=== PATIENT | male | born 1965 | race Caucasian/White ===

== ENCOUNTER → 2017-07-26 | Outpatient (CLI) | payer OTHER ==
[~2017-07-26] MED LIST: /PANT40TA OR; ALLO300T OR; AMBI12.52 PO; Acetaminophen/Hydrocodone PO; BACL10TA PO; BYST5TAB2 PO; BYSTOLIC PO; CELE1CAP4 PO; CIPR-250 PO; CYCL10TA PO; GABA-279 PO; LORT5TAB PO; METO1TAB7 PO; NEUR300C PO; NEUR400C OR; NORCOTAB PO; OXYC20TA2 OR; PERC5TAB8 PO; PROT1TAB2 PO; RESTASIS OU; SING10TA31 OR; TEST1INJ3 IM; TESTPOW5 IM; TIZA4CAP3 PO; TRAM50TA2 PO; ULTR50TA PO; ZYLO300T4 PO; [UNRECOGNIZED DRUG - OTHER] TOP
[2017-07-26 15:28] LABS: BLOOD UREA NITROGEN 10 MG/DL (7-18); CREATININE FOR GFR 0.99 MG/DL (0.70-1.30); GLOMERULAR FILTRATION RATE > 60.0 (>56)
== END ==
LOC: M LAB 14:14
PROVIDERS: ATTEND Orthopaedic Surgery Orthopaedic Surgery of the Spine
DX: M54.5 Low back pain (principal); Z01.818 Encounter for other preprocedural examination

== ENCOUNTER → 2017-08-02 | Outpatient (REF) | payer OTHER, MEDICAID ==
[2017-08-02 19:40] LABS: BASO % 0.3 % (0.0-1.0); EOS # 0.1 10^3/uL (0.0-0.50); EOS % 1.4 % (0.0-3.0); IMMATURE GRANULOCYTE % 0.4 % (0-0); LYMPH # 2.3 10^3/uL (1.5-4.5); LYMPH % 31.9 % (24.0-44.0); MEAN CORPUSCULAR HEMOGLOBIN 31.5 pg (27.0-33.0); MEAN CORPUSCULAR HGB CONC 35.1 g/dl (32.0-36.5); MEAN CORPUSCULAR VOLUME 89.6 fl (80.0-96.0); MONO # 0.6 10^3/uL (0.0-0.8); MONO % 8.3 % (0.0-5.0); NEUTROPHILS # 4.2 10^3/uL (1.8-7.7); NEUTROPHILS % 57.7 % (36.0-66.0); PLATELET COUNT, AUTOMATED 268 10^3/uL (150-450); RED CELL DISTRIBUTION WIDTH 12.4 % (11.5-14.5); WHITE BLOOD COUNT 7.3 10^3/uL (4.0-10.0)
[2017-08-02 20:07] LABS: ALBUMIN 4.3 GM/DL (3.2-5.2); ALBUMIN/GLOBULIN RATIO 1.34 (1.00-1.93); ALKALINE PHOSPHATASE 57 U/L (45-117); ALT/SGPT 46 U/L (12-78); ANION GAP 6 MEQ/L (8-16); AST/SGOT 23 U/L (15-37); BILIRUBIN,TOTAL 0.7 MG/DL (0.2-1.0); BLOOD UREA NITROGEN 12 MG/DL (7-18); CARBON DIOXIDE LEVEL 29 MEQ/L (21-32); CHLORIDE LEVEL 105 MEQ/L (98-107); CHOLESTEROL LEVEL 197 MG/DL (<200); CREATININE FOR GFR 0.88 MG/DL (0.70-1.30); GLOMERULAR FILTRATION RATE > 60.0 (>56); GLUCOSE, FASTING 84 MG/DL (70-105); POTASSIUM SERUM 4.3 MEQ/L (3.5-5.1); SODIUM LEVEL 140 MEQ/L (136-145); TOTAL PROTEIN 7.5 GM/DL (6.4-8.2); TRIGLYCERIDES LEVEL 84 MG/DL (<150); URIC ACID 6.7 MG/DL (3.5-7.2)
== END ==
LOC: M LAB REF 17:38
PROVIDERS: ATTEND Family Medicine Addiction Medicine
DX: I10 Essential (primary) hypertension (principal)

== ENCOUNTER 2017-08-25 10:08 | Day surgery (SDC) | payer OTHER ==
[~2017-08-25] VITALS: Ht 177.8 cm; Wt 108.9 kg
[2017-08-25] MEDS ORDERED: NS 1,000 ML IV ONE (12:30)
[2017-08-25] MEDS ORDERED: LIDOCAINE 2% INJ 100 MG/5 ML SDV (FOR ANES.) As Ordered ONE (13:43)
[2017-08-25] MEDS ORDERED: PROPOFOL 200 MG/20 ML VIAL As Ordered ONE (13:43)
--- NOTE | 2017-08-25 13:45 | ROOR ---
Patient Name: Everette Villanueva Procedure Date: 08/25/2017 1:28 PM Date of : 1965 Age: 52 Room: [facility] Gender: Male Note Status: Finalized Procedure: Upper GI endoscopy Indications: Heartburn, Pt with family history of celiac disease--Exclusion of celiac disease Providers: Nadeem PORTER MD Referring MD: Blu CESAR MD Requesting Provider: Medicines: Monitored Anesthesia Care Complications: No immediate complications. Procedure: Pre-Anesthesia Assessment: - The heart rate, respiratory rate, oxygen saturations, blood pressure, adequacy of pulmonary ventilation, and response to care were monitored throughout the procedure. The Endoscope was introduced through the mouth, and advanced to the third part of duodenum. The upper GI endoscopy was accomplished without difficulty. The patient tolerated the procedure well. Findings: The esophagus was normal. The stomach was normal. The examined duodenum was normal. Biopsies for histology were taken with a cold forceps in the second portion of the duodenum and in the third portion of the duodenum for evaluation of celiac disease. Impression: - Normal esophagus. - Normal stomach. - Normal examined duodenum. - Biopsies were taken with a cold forceps for evaluation of celiac disease. Recommendation: - Telephone endoscopist for pathology results in 2 weeks. Nadeem Porter MD Nadeem PORTER MD 08/25/2017 1:45:18 PM This report has been signed electronically. Number of Addenda: 0 Note Initiated On: 08/25/2017 1:28 PM Estimated Blood Loss: Estimated blood loss: none.
--- NOTE | 2017-08-25 13:55 | ROOR ---
Patient Name: Everette Villanueva Procedure Date: 08/25/2017 1:29 PM Date of : 1965 Age: 52 Room: [facility] Gender: Male Note Status: Finalized Procedure: Colonoscopy Indications: Screening for colorectal malignant neoplasm Providers: Nadeem PORTER MD Referring MD: Blu CESAR MD Requesting Provider: Medicines: Monitored Anesthesia Care Complications: No immediate complications. Procedure: Pre-Anesthesia Assessment: - The heart rate, respiratory rate, oxygen saturations, blood pressure, adequacy of pulmonary ventilation, and response to care were monitored throughout the procedure. The Colonoscope was introduced through the anus and advanced to 6 cm into the ileum. The colonoscopy was performed without difficulty. The patient tolerated the procedure well. The quality of the bowel preparation was good. Findings: The perianal and digital rectal examinations were normal. (Exam: Complete, Prep: Good or Excellent.) Small Internal Hemorrhoids. The entire examined colon appeared normal on direct and retroflexion views. The terminal ileum appeared normal. Impression: - (Exam: Complete, Prep: Good or Excellent.) - Small Internal Hemorrhoids. - The entire colon is normal on direct and retroflexion views. - The examined portion of the ileum was normal. - No specimens collected. Recommendation: - Repeat colonoscopy in 10 years for screening purposes. Nadeem Porter MD Nadeem PORTER MD 08/25/2017 1:54:49 PM This report has been signed electronically. Number of Addenda: 0 Note Initiated On: 08/25/2017 1:29 PM Estimated Blood Loss: Estimated blood loss: none.
[2017-08-25 14:36] VITALS: BP 125/75
== END 2017-08-25 14:37 | disposition home or self-care (01) ==
LOC: M OPP 10:08
PROVIDERS: ATTEND Internal Medicine Gastroenterology
DX: Z12.11 Encounter for screening for malignant neoplasm of colon (principal); K64.8 Other hemorrhoids; R12 Heartburn; G47.33 Obstructive sleep apnea (adult) (pediatric); I10 Essential (primary) hypertension; M19.90 Unspecified osteoarthritis, unspecified site; J45.909 Unspecified asthma, uncomplicated; Z79.899 Other long term (current) drug therapy; Z83.79 Family history of other diseases of the digestive system; Z91.048 Other nonmedicinal substance allergy status; Z88.8 Allergy status to other drugs, medicaments and biological substances; T88.53XD Unintended awareness under general anesthesia during procedure, subsequent encounter; Z87.442 Personal history of urinary calculi

== ENCOUNTER → 2017-08-30 | Outpatient (CLI) | payer OTHER, MEDICAID ==
--- NOTE | 2017-09-12 00:40 | ECWPNPC ---
PATIENT NAME: CORY JEFFERY : 1965 GENDER: MALE VISIT DATE: 08/30/2017 DISCHARGE DATE: 08/30/17 1525 VISIT LOCKED DATE TIME: PHYSICIAN: BAHMAN BOB RESOURCE: BAHMAN BOB REASON FOR APPOINTMENT 1. NECK AND BACK HISTORY OF PRESENT ILLNESS NEW PATIENT CONSULT: WHEN DID YOUR PAIN FIRST START? . BRIEFLY DESCRIBE HOW YOUR PAIN STARTED? . HOW DOES YOUR PAIN CHANGE WITH TIME? . DOES YOUR PAIN AWAKEN YOU FROM SLEEP? . HOW MANY HOURS OF SLEEP DO YOU NORMALLY GET? . ANY DIAGNOSTIC TESTING? . FACILITY WHERE TESTS WERE DONE? ____. PAIN TREATMENT TREATMENT YES CANCER HAVE YOU EVER HAD ANY TYPE OF CANCER?NO NO. PAIN SCREENING: PATIENT HAS A COMPLAINT OF ACUTE OR CHRONIC PAIN :YES FALL RISK SCREENING: SCREENING :NO FALLS IN THE PAST YEAR GORDON INVENTORY: QUESTIONNAIRE ASSESSEDTBD SCORE VALUE CALCULATED TBD TODAY'S VISIT: NOTES: REFERRED TO US BY PCP HUA CESAR MD FOR NECK, BACK AND ABD PAIN. HE WAS PREVIOUSLY SEEN HERE AT THE PAIN CENTER WITH LAST VISIT 06/02/15 BY Monica MCFADDEN-Brian. NOTES THAT ABD PAIN S/P HERNIA REPAIR BILATERAL WITH LEFT SIDE THE WORST. STATES THIS IS UNDER FAIR CONTROL WITH THE USE OF GABAPENTIN. NECK ARE IS UNCCOMF WITH N/T IN R.L EXTPAIN. THIS CAN AWAKEN FROM SLEEP. SI JOINT LEFT IS VERY PAINFUL AND THEN THE LOW BACK IS THE WORST. HAS JOLTING PAIN WHICH IS STRAIGHT ACROSS THE BACK. THIS HAS CAUSED FALLS - NO SPECIFIC N/T IN THE LEGS/FEET. HAS SOME KNOWN WEAKNESS IN RIGHT LEG AND THIS IS GETTING WORSE. IS NOTING IT IS VERY DIFFICULT TO GET OUT BED. NO ISSUES WITH B/B HAS USED HEAT/ICE/REST. CURRENT MEDICATIONS TAKING METOPROLOL SUCCINATE 50 MG TABLET EXTENDED RELEASE 1 TAB ORALLY DAILY TAKING GABAPENTIN 100 MG CAPSULE ORALLY 3 TIMES A DAY TAKING FLEXERIL 10 MG TABLET 1 TABLET NEEDED ORALLY THREE TIMES A DAY MEDICATION LIST REVIEWED AND RECONCILED WITH THE PATIENT PAST MEDICAL HISTORY HIGH BLOOD PRESSURE HISTORY OF KIDNEY STONES BACK PAIN NECK PAIN ALLERGIES N.K.D.A. SURGICAL HISTORY AMPUTATION LEFT PINKY FINGER 05/1970 LEFT INGUINIAL HERNIA REPAIR 03/1996 RIGHT INGUINIAL HERNIA REPAIR 04/2002 RIGHT SHOULDER ROTATOR CUFF REPAIR AND CLAVICULAR RESECTION AND REPAIR OF TEAR 04/2009 AND 04/2010 BILATERAL INGUINIAL REPAIR 2011 LEFT PLICA REMOVAL 2004 AND 2010 LEFT WRIST CARPUL TUNNEL REPAIR 2011 LUMBAR DISCECTOMY L5-S1 2013 FAMILY HISTORY FATHER: ALIVE, DIAGNOSED WITH CANCER MOTHER: ALIVE, DIAGNOSED WITH CANCER 1 SISTER(S) - HEALTHY. SOCIAL HISTORY GENERAL: TOBACCO USE ARE YOU A:NONSMOKER ALCOHOL SCREENING POINTS2 INTERPRETATIONNEGATIVE RECREATIONAL DRUG USE DRUG USE?NO UATSDIN [id number] RESTORATION LANGUAGE LANGUAGES SPOKEN:MICRONESIAN LEARNING BARRIERS / SPECIAL NEEDS BARRIERS TO LEARNING?NO HEARING IMPAIRED?NO VISION IMPAIRED?YES :CORRECTIVE LENSES COGNITIVELY IMPAIRED?NO READINESS TO LEARN?YES LEARNING PREFERENCES?NO LEARNING CAPABILITIES PRESENT?YES EMOTIONAL BARRIERS?NO SPECIAL DEVICES?NO TAG STRINGER NEEDED?NO PAIN CLINIC PFS, CLERGY, PUBLIC HEALTH REFERRALS PFS REFERRAL NEEDED?NO CLERGY REFERRAL NEEDED?NO PUBLIC HEALTH REFERRAL NEEDED?NO WAS THE PROVIDER NOTIFIED OF ANY PERTINENT INFO?NO HAS THE PATIENT BEEN EDUCATED REGARDING HIS/HER PLAN OF CARE?YES HAS THE PATIENT BEEN EDUCATED REGARDING PAIN, THE RISK FOR PAIN, THE IMPORTANCE OF EFFECTIVE PAIN MANAGEMENT, AND THE PAIN ASSESSMENT PROCESS?YES PATIENT: ____. ADVANCE DIRECTIVES HEALTH CARE PROXY?NO WOULD YOU LIKE MORE INFORMATION?YES GIVEN HCP INFORMATION 08/30/17 DO YOU HAVE A DNR?NO WOULD YOU LIKE MORE INFORMATION?NO LIVING WILL?NO WOULD YOU LIKE MORE INFORMATION?NO POWER OF RN PLASTICS?NO WOULD YOU LIKE MORE INFORMATION?NO REVIEW OF SYSTEMS REVIEWED BY: PROVIDER: . CONSTITUTIONAL: ANY CHANGE IN YOUR MEDICAL CONDITION? NO . CHILLS NO . FEVER NO . INFECTION: DO YOU HAVE NEW INFECTIONS? NO . DO YOU HAVE HISTORY OF MRSA? NO . MUSCULOSKELETAL: ANY NEW PATTERNS OF PAIN OR NUMBNESS? NO . SYTEMIC LUPUS NO . GASTROENTEROLOGY: ANY NEW CHANGE IN BOWEL CONTROL? NO . BARRETTS ESOPHAGUS NO . CIRRHOSIS NO . HEPATITIS NO . LIVER FAILURE NO . ACID REFLUX NO . UNEXPLAINED WEIGHT LOSS NO . GENITOURINARY: ANY NEW CHANGE IN BLADDER CONTROL? NO . IS THERE A CHANCE YOU COULD BE ? NO . HEMATOLOGY/LYMPH: DO YOU TAKE ANY BLOOD THINNERS? (FOR EXAMPLE- COUMADIN, PLAVIX, AGGRENOX, PLATEL, PRADAXA, OR XARELTO) NO . WHEN WAS YOUR LAST DOSE? DATE: TIME: . LOW PLATELET COUNT NO . SICKLE CELL DISEASE NO . VON WILLIEBRANDS NO . FACTOR V LEIDEN NO . THALLASEMIA NO . ANEMIA NO . EASY BRUISING NO . NEUROLOGY: HAVE YOU FALLEN IN THE PAST 6 MONTHS? YES . ANY NEW EXTREMITY NUMBNESS OR WEAKNESS? NO . HEAD INJURY NO . DEMENTIA NO . CEREBRAL PALSY NO . MULTIPLE SCLEROSIS NO . DIZZINESS NO . HEADACHE NO . STROKES NO . VERTIGO NO . CARDIOLOGY: DO YOU HAVE A PACEMAKER OR DEFIBRILLATOR? NO . ANGINA NO . HEART ATTACK NO . HEART SURGERY NO . CONGESTIVE HEART FAILURE/FLUID OVERLOAD NO . CHEST PAIN NO . HIGH BLOOD PRESSURE YES, ON MEDICATION(S) . IRREGULAR HEART BEAT NO . RESPIRATORY: HAVE YOU BEEN SICK IN THE PAST WEEK? NO . FEVER NO . FLU LIKE SYMPTOMS? NO . CPAP NO . BYPAP NO . ASTHMA NO . EMPHYSEMA NO . CHRONIC LUNG DISEASES NO . SHORTNESS OF BREATH ON EXERTION NO . DO YOU USE ANY TYPE OF TOBACCO (SMOKE, SMOKELESS, CHEW)? NO . COUGH NO . SNORING NO . INTEGUMENTARY: DO YOU HAVE ANY RASHES OR OPEN SORES? NO . ALLERGIC/IMMUNO: ARE YOU ALLERGIC TO SHELLFISH OR IV DYE? NO . ANY NEW ALLERGIES? NO . PSYCHIATRIC: DO YOU HAVE THOUGHTS OF HURTING YOURSELF OR SOMEONE ELSE? NO . ARE YOU ABUSED, NEGLECTED, OR IN AN UNSAFE ENVIRONMENT? NO . ENDOCRINOLOGY: ARE YOU DIABETIC? NO . THYROID DISORDER NO . OTHER: DO YOU NEED ANY PRESCRIPTIONS? NO . IF YES, PLEASE LIST: ____ . ANY NEW PROBLEMS WITH YOUR MEDICATIONS? NO . WHEN DID YOU LAST EAT? ____ . WHEN DID YOU LAST DRINK? ____ . WHAT DID YOU LAST DRINK? ____ . NAME OF PERSON DRIVING YOU HOME? ____ . DO YOU HAVE ANY OTHER QUESTIONS OR CONCERNS NO . PSYCHOLOGY: BECKS DEPRESSION INVENTORY . DENIES SUICIDAL/HOMICIDAL IDEATION . UROLOGY: GENERAL OCCASIONAL KIDNEY STONES - HAS ABOUT 2 X YEAR . VITAL SIGNS WT 240.0 LBS, HT 70", BMI 34.43 INDEX, BP 156/104 MM HG, REPEAT BP 150/102 MANUAL, HR 102 /MIN, RR 16 /MIN, TEMP 97.6 F, OXYGEN SAT % 98%, SAFE IN ENV? (Y/N) YES, NA INITIALS TL 1357, REVIEWED BY: ARELIS BP, RN Claudia AWARE-TL. EXAMINATION GENERAL EXAMINATION: PSYCHALERT , ORIENTED X 3 , APPROPRIATE MOOD AND AFFECT . HEENT:NORMOCEPHALIC, NO LYMADENOPATHY, NO THYROMEGLY . LUNGS:CLEAR TO AUSCULTATION BILATERALLY, NO WHEEZES, RALES OR RHONCHI . HEART:NORMAL S1S2, NO MURMURS, CLICK OR RUBS . MUSCULOSKELETAL:POINT TENDERNESS OVER C7 PROMINENCE AND OVER LUMBAR SPINOUS PROCESSES. , TRIGGER POINTS AND TIGHT BIBROUS BANDS OVER LEFT SACRUM. AND LEFT SIJ. GAIT NON ANTALGIC. CAN FLEX TO 45 DEGREES, EXTEND TO 10 DEGREES. . EXTREMITIES:NO EDEMA . NEUROLOGIC EXAM:DTR'S 1+ IN UPPER AND LOWER EXTREMITIES. NO SESORY DEFICEIT . DIAGNOSTIC TESTS REVIEWEDMRI OF LUMBAR SPINE AND CERVICAL SPINECOMPLETED 11/14/14 REVIEWED. ASSESSMENTS LUMBAR POST-LAMINECTOMY SYNDROME - M96.1 (PRIMARY) LUMBAR RADICULOPATHY - M54.16 SACROILIITIS - M46.1 TREATMENT LUMBAR POST-LAMINECTOMY SYNDROME START TRAMADOL HCL TABLET, 50 MG, 1 TABLET NEEDED, ORALLY, EVERY 6 HRS PRN PAIN MDD=3, 30 DAY(S), 90, REFILLS 0 CAUDAL/LUMBAR EPIDURALBAHMAN BOB 08/30/2017 3:12:47 PM > WILL NEED IV SEDATION NOTES: WHAT IS LUMBAR EPIDURAL INJECTION? MATERIAL WAS PRINTED,LUMBAR EPIDURAL INJECTION: RECOVERY AT HOME MATERIAL WAS PRINTED,LUMBAR EPIDURAL INJECTION: YOUR PROCEDURE MATERIAL WAS PRINTED. PREVENTIVE MEDICINE PAIN CLINIC TEACHING: MEDICATIONS PATIENT HAS TAKEN TRAMADOL PRIOR AND REFUSES ANY ADDITIONAL INFORMATION.. PROCEDURE TEACHING PRE-PROCEDURE TEACHING DONE. ADDITIONAL HAND-OUTS GIVEN. QUESTIONS ANSWERED. PATIENT VERBALIZES UNDERSTANDING.. PROCEDURE CODES FA211 ESTABILISHED PATIENT [facility] FACILITY CHARGE DISPOSITION & COMMUNICATION FOLLOW UP AFTER INJECTION (REASON: CHECK AUTH FOR CAUDAL EPIDURAL WITH IV SEDATION) ELECTRONICALLY SIGNED BY DANI RICK ON 09/10/2017 AT 12:49 PM EST DISCLAIMER : THIS IS A VISIT SUMMARY EXTRACTED FROM THE [email or web address] CHART. IT IS NOT A COPY OF THE [email or web address] PROGRESS NOTE. MTDD
== END ==
LOC: M PAIN 14:00
PROVIDERS: ATTEND Nurse Practitioner Family
DX: M96.1 Postlaminectomy syndrome, not elsewhere classified (principal); M54.16 Radiculopathy, lumbar region; M46.1 Sacroiliitis, not elsewhere classified; Z79.899 Other long term (current) drug therapy

== ENCOUNTER → 2017-08-31 | Outpatient (CLI) | payer OTHER | LOC: M LAB 11:04 | PROVIDERS: ATTEND Physician Assistant Medical | DX: K52.29 Other allergic and dietetic gastroenteritis and colitis (principal) ==

== ENCOUNTER → 2017-09-20 | Outpatient (CLI) | payer OTHER ==
[2017-09-20 13:27] LABS: BLOOD UREA NITROGEN 12 MG/DL (7-18); CREATININE FOR GFR 0.83 MG/DL (0.70-1.30); GLOMERULAR FILTRATION RATE > 60.0 (>56)
== END ==
LOC: M LAB 12:35
PROVIDERS: ATTEND Physician Assistant Medical
DX: M54.5 Low back pain (principal)

== ENCOUNTER → 2017-09-23 | Outpatient (CLI) | payer OTHER ==
[2017-09-23 18:04] LABS: BASO % 0.4 % (0.0-1.0); EOS # 0.2 10^3/uL (0.0-0.50); EOS % 2.1 % (0.0-3.0); IMMATURE GRANULOCYTE % 0.4 % (0-0); LYMPH # 2.7 10^3/uL (1.5-4.5); LYMPH % 32.4 % (24.0-44.0); MEAN CORPUSCULAR HEMOGLOBIN 31.5 pg (27.0-33.0); MEAN CORPUSCULAR HGB CONC 35.1 g/dl (32.0-36.5); MEAN CORPUSCULAR VOLUME 89.8 fl (80.0-96.0); MONO # 0.6 10^3/uL (0.0-0.8); MONO % 7.2 % (0.0-5.0); NEUTROPHILS # 4.8 10^3/uL (1.8-7.7); NEUTROPHILS % 57.5 % (36.0-66.0); PLATELET COUNT, AUTOMATED 272 10^3/uL (150-450); RED CELL DISTRIBUTION WIDTH 12.8 % (11.5-14.5); WHITE BLOOD COUNT 8.3 10^3/uL (4.0-10.0)
[2017-09-23 20:05] LABS: ERYTHROCYTE SEDIMENTATION RATE 5 mm/hr (0-20)
== END ==
LOC: M LAB 16:32
PROVIDERS: ATTEND Family Medicine Addiction Medicine
DX: M54.5 Low back pain (principal)

== ENCOUNTER → 2017-10-13 | Outpatient (REF) | payer OTHER ==
[2017-10-13 13:59] LABS: ANION GAP 9 MEQ/L (8-16); BLOOD UREA NITROGEN 14 MG/DL (7-18); C REACTIVE PROTEIN QUANTITATIV 0.61 MG/DL (0.00-0.30); CALCIUM LEVEL 9.3 MG/DL (8.5-10.1); CARBON DIOXIDE LEVEL 25 MEQ/L (21-32); CHLORIDE LEVEL 107 MEQ/L (98-107); CREATININE FOR GFR 0.89 MG/DL (0.70-1.30); GLOMERULAR FILTRATION RATE > 60.0 (>56); GLUCOSE, FASTING 90 MG/DL (70-105); POTASSIUM SERUM 4.9 MEQ/L (3.5-5.1); SODIUM LEVEL 141 MEQ/L (136-145)
== END ==
LOC: M SFHCPLAZ 11:21
DX: M46.47 Discitis, unspecified, lumbosacral region (principal)

== ENCOUNTER → 2017-10-17 | Outpatient (CLI) | payer OTHER | LOC: M PAIN 10:45 | DX: M46.47 Discitis, unspecified, lumbosacral region (principal); M96.1 Postlaminectomy syndrome, not elsewhere classified; I10 Essential (primary) hypertension; Z88.8 Allergy status to other drugs, medicaments and biological substances; Z79.899 Other long term (current) drug therapy | CPT/HCPCS: G0463 ==

== ENCOUNTER → 2017-10-24 | Outpatient (CLI) | payer OTHER ==
[~2017-10-24] MED LIST changes: -/PANT40TA OR; +ACETAMINOPHEN 325 MG TAB As Ordered; -ALLO300T OR; -AMBI12.52 PO; -Acetaminophen/Hydrocodone PO; -BACL10TA PO; -BYST5TAB2 PO; -BYSTOLIC PO; -CELE1CAP4 PO; -CIPR-250 PO; -CYCL10TA PO; -GABA-279 PO; +LIDOCAINE 1% MDV 20ML VIAL As Ordered; -LORT5TAB PO; -METO1TAB7 PO; -NEUR300C PO; -NEUR400C OR; -NORCOTAB PO; -OXYC20TA2 OR; -PERC5TAB8 PO; -PROT1TAB2 PO; -RESTASIS OU; -SING10TA31 OR; -TEST1INJ3 IM; -TESTPOW5 IM; -TIZA4CAP3 PO; -TRAM50TA2 PO; -ULTR50TA PO; -ZYLO300T4 PO; -[UNRECOGNIZED DRUG - OTHER] TOP
== END ==
LOC: M RADPRO 11:38
DX: M46.47 Discitis, unspecified, lumbosacral region (principal); F41.9 Anxiety disorder, unspecified; I10 Essential (primary) hypertension; J45.909 Unspecified asthma, uncomplicated; Z87.442 Personal history of urinary calculi; Z79.891 Long term (current) use of opiate analgesic; Z79.899 Other long term (current) drug therapy
CPT/HCPCS: 62267

== ENCOUNTER → 2017-11-03 | Outpatient (REF) | payer OTHER ==
[2017-11-03 12:14] LABS: BASO % 0.4 % (0.0-1.0); EOS # 0.1 10^3/uL (0.0-0.50); EOS % 1.3 % (0.0-3.0); HEMATOCRIT 45.9 % (42.0-52.0); HEMOGLOBIN 15.7 g/dl (14.0-18.0); IMMATURE GRANULOCYTE % 0.3 % (0-0); LYMPH # 1.9 10^3/uL (1.5-4.5); LYMPH % 26.6 % (24.0-44.0); MEAN CORPUSCULAR HEMOGLOBIN 31.3 pg (27.0-33.0); MEAN CORPUSCULAR HGB CONC 34.2 g/dl (32.0-36.5); MEAN CORPUSCULAR VOLUME 91.4 fl (80.0-96.0); MONO # 0.7 10^3/uL (0.0-0.8); NEUTROPHILS # 4.5 10^3/uL (1.8-7.7); NEUTROPHILS % 62.4 % (36.0-66.0); PLATELET COUNT, AUTOMATED 280 10^3/uL (150-450); RED BLOOD COUNT 5.02 10^6/uL (4.30-6.10); RED CELL DISTRIBUTION WIDTH 12.7 % (11.5-14.5); WHITE BLOOD COUNT 7.2 10^3/uL (4.0-10.0)
[2017-11-03 12:33] LABS: C REACTIVE PROTEIN QUANTITATIV 0.43 MG/DL (0.00-0.30)
[2017-11-03 12:40] LABS: ERYTHROCYTE SEDIMENTATION RATE 5 mm/hr (0-20)
[2017-11-05 14:12] LABS: QUANTIFERON GOLD TB Negative (Negative); TB Test (QFT) Antigen Minus Ni 0.05 IU/mL (.); TB Test (QFT) Mitogen 6.97 IU/mL (.); TB Test (QFT) Nil 0.05 IU/mL (.)
== END ==
LOC: M SFHCPLAZ 10:23
DX: M46.47 Discitis, unspecified, lumbosacral region (principal)
CPT/HCPCS: 36415

== ENCOUNTER → 2017-11-08 | Outpatient (CLI) | payer OTHER | LOC: M RAD 15:04 | DX: M46.40 Discitis, unspecified, site unspecified (principal) | CPT/HCPCS: 72052 ==

== ENCOUNTER → 2017-11-21 | Outpatient (CLI) | payer OTHER | LOC: M PAIN 11:00 | DX: M46.47 Discitis, unspecified, lumbosacral region (principal); M46.1 Sacroiliitis, not elsewhere classified; I10 Essential (primary) hypertension; Z79.899 Other long term (current) drug therapy | CPT/HCPCS: G0463 ==

== ENCOUNTER → 2017-12-12 | Outpatient (CLI) | payer OTHER ==
[2017-12-13 14:14] LABS: C-PEPTIDE 4.1 ng/mL (1.1-4.4)
[2017-12-13 14:14] LABS: INSULIN LEVEL 22.8 uIU/mL (2.6-24.9)
== END ==
LOC: M LAB 10:41
DX: E66.9 Obesity, unspecified (principal)
CPT/HCPCS: 83525

== ENCOUNTER → 2017-12-13 | Outpatient (CLI) | payer OTHER | LOC: M EKG 10:40 | DX: I10 Essential (primary) hypertension (principal) | CPT/HCPCS: 93005 ==

== ENCOUNTER → 2017-12-16 | Outpatient (CLI) | payer OTHER ==
[2017-12-16 12:02] LABS: BASO % 0.4 % (0.0-1.0); EOS # 0.1 10^3/uL (0.0-0.50); EOS % 1.2 % (0.0-3.0); HEMATOCRIT 45.8 % (42.0-52.0); HEMOGLOBIN 15.8 g/dl (14.0-18.0); IMMATURE GRANULOCYTE % 0.4 % (0-3.0); LYMPH # 1.9 10^3/uL (1.5-4.5); LYMPH % 23.6 % (24.0-44.0); MEAN CORPUSCULAR HEMOGLOBIN 30.7 pg (27.0-33.0); MEAN CORPUSCULAR HGB CONC 34.5 g/dl (32.0-36.5); MEAN CORPUSCULAR VOLUME 89.1 fl (80.0-96.0); MONO # 0.8 10^3/uL (0.0-0.8); NEUTROPHILS # 5.2 10^3/uL (1.8-7.7); NEUTROPHILS % 64.4 % (36.0-66.0); PLATELET COUNT, AUTOMATED 275 10^3/uL (150-450); RED BLOOD COUNT 5.14 10^6/uL (4.30-6.10); RED CELL DISTRIBUTION WIDTH 12.6 % (11.5-14.5); WHITE BLOOD COUNT 8.1 10^3/uL (4.0-10.0)
[2017-12-16 12:26] LABS: ALBUMIN 4.2 GM/DL (3.2-5.2); ALKALINE PHOSPHATASE 58 U/L (45-117); ALT/SGPT 38 U/L (12-78); ANION GAP 5 MEQ/L (8-16); AST/SGOT 18 U/L (7-37); BILIRUBIN,TOTAL 0.6 MG/DL (0.2-1.0); BLOOD UREA NITROGEN 14 MG/DL (7-18); CALCIUM LEVEL 9.1 MG/DL (8.5-10.1); CARBON DIOXIDE LEVEL 31 MEQ/L (21-32); CHLORIDE LEVEL 105 MEQ/L (98-107); CREATININE FOR GFR 0.96 MG/DL (0.70-1.30); GLOMERULAR FILTRATION RATE > 60.0 (>56); GLUCOSE, FASTING 87 MG/DL (70-100); POTASSIUM SERUM 4.3 MEQ/L (3.5-5.1); SODIUM LEVEL 141 MEQ/L (136-145); TOTAL PROTEIN 7.2 GM/DL (6.4-8.2)
[2017-12-16 12:39] LABS: COLLAGEN EPINEPHRINE 147 SECONDS (74-162)
[2017-12-16 12:46] LABS: INR 0.99; PROTHROMBIN TIME 13.1 SECONDS (12.4-14.5)
[2017-12-16 12:47] LABS: PARTIAL THROMBOPLASTIN TIME 44.4 SECONDS (26.8-37.9)
== END ==
LOC: M LAB 10:59
DX: Z01.818 Encounter for other preprocedural examination (principal)
CPT/HCPCS: 71046

== ENCOUNTER → 2017-12-19 | Outpatient (CLI) | payer OTHER ==
[~2017-12-19] MED LIST changes: -ACETAMINOPHEN 325 MG TAB As Ordered; +BACITRACIN OINT 30GM As Ordered; +BACITRACIN PWD 50,000 UNITS VIAL As Ordered; -LIDOCAINE 1% MDV 20ML VIAL As Ordered; +LIDOCAINE 2% INJ 100 MG/5 ML SDV (FOR ANES.) As Ordered; +LIDOCAINE W/EPINEPHRINE 1% 20ML VIAL As Ordered; +MIDAZOLAM INJ 2 MG/2 ML VIAL (J2250) As Ordered; +PROPOFOL 200 MG/20 ML VIAL As Ordered; +ROCURONIUM BROMIDE 50 MG/5 ML VIAL As Ordered; +THROMBIN SOLN 20,000 UNITS KIT As Ordered; +dexameTHASONE 4 MG/ML 1ML VIAL (J1100) As Ordered; +fentaNYL 250 MCG/5 ML INJECTION (J3010) As Ordered; +methylPREDNISolone SUSP 40 MG/ML (DEPO-medrol) VIAL (J1030) As Ordered
[2017-12-19] MEDS: LR 1,000 ML IV (07:00)
== END ==
LOC: M OR 05:52 → M LAB 07:30
DX: Z01.812 Encounter for preprocedural laboratory examination (principal); M46.46 Discitis, unspecified, lumbar region; Z53.09 Procedure and treatment not carried out because of other contraindication
CPT/HCPCS: 85730

== ENCOUNTER → 2017-12-21 | Outpatient (REF) | payer OTHER ==
[2017-12-21 14:23] LABS: PSA SCREENING 0.71 NG/ML (< 4.0)
== END ==
LOC: M LAB REF 11:37
DX: M46.37 Infection of intervertebral disc (pyogenic), lumbosacral region (principal); Z12.5 Encounter for screening for malignant neoplasm of prostate

== ENCOUNTER → 2018-01-19 | Outpatient (CLI) | payer OTHER | LOC: M PAIN 14:30 | DX: M46.47 Discitis, unspecified, lumbosacral region (principal); M46.1 Sacroiliitis, not elsewhere classified; I10 Essential (primary) hypertension; Z79.899 Other long term (current) drug therapy; Z79.891 Long term (current) use of opiate analgesic | CPT/HCPCS: G0463 ==

== ENCOUNTER → 2018-01-31 | Outpatient (REF) | payer OTHER ==
[2018-01-31 11:00] LABS: PROTHROMBIN TIME 13.2 SECONDS (12.4-14.5)
[2018-01-31 11:40] LABS: APTT 1:2 SUBSTITUTION 40.4 SECONDS
== END ==
LOC: M LAB REF 10:15
DX: D68.9 Coagulation defect, unspecified (principal)
CPT/HCPCS: 85610

== ENCOUNTER → 2018-02-06 | Outpatient (REF) | payer OTHER ==
[2018-02-07 09:53] LABS: DRVV SCREEN 48.4 SEC
[2018-02-07 09:55] LABS: PTT LUPUS TYPE ANTICOAG SCREEN 1.1 (0-1.2)
[2018-02-09 14:14] LABS: FACTOR VIII AG (VON WILLEBRAN) 110 % (50-200)
[2018-02-09 14:14] LABS: FACTOR VIII ACTIVITY 90 % (57-163)
== END ==
LOC: M LAB REF 12:48
DX: D68.9 Coagulation defect, unspecified (principal)

== ENCOUNTER → 2018-02-24 | Outpatient (REF) | payer OTHER ==
[2018-02-24 13:53] LABS: PARTIAL THROMBOPLASTIN TIME 52.9 SECONDS (26.8-37.9)
[2018-02-24 14:15] LABS: APTT 1:2 SUBSTITUTION 43.3 SECONDS
[2018-03-01 00:06] LABS: PREKALLIKREIN ASSAY 117 % (.)
[2018-03-01 00:06] LABS: COAGULATION FACTOR XI ACTIVITY 75 % (60-150); COAGULATION FACTOR XII ACTIVIT 40 % (50-150); F8 ACTIVITY FOR F8 PANEL 89 % (57-163); F8 ACTIVITY vWB FOR F8 PANEL 93 % (50-200); F8 ANTIGEN FOR F8 PANEL 104 % (50-200); HMW KININOGEN ACTIVITY 90 % (.); INTERPRETATION: Note (.)
== END ==
LOC: M LAB REF 12:25
DX: D68.9 Coagulation defect, unspecified (principal)
CPT/HCPCS: 85246

== ENCOUNTER → 2018-07-21 | Outpatient (CLI) | payer OTHER | LOC: M PAIN 14:30 | DX: M46.47 Discitis, unspecified, lumbosacral region (principal); M46.1 Sacroiliitis, not elsewhere classified; I10 Essential (primary) hypertension; Z79.899 Other long term (current) drug therapy | CPT/HCPCS: G0463 ==

== ENCOUNTER → 2019-01-03 | Outpatient (REF) | payer OTHER ==
[~2019-01-03] MED LIST changes: +/PANT40TA OR; +ALLO300T OR; +AMBI12.52 PO; +Acetaminophen/Hydrocodone PO; -BACITRACIN OINT 30GM As Ordered; -BACITRACIN PWD 50,000 UNITS VIAL As Ordered; +BACL10TA PO; +BYST5TAB2 PO; +BYSTOLIC PO; +CELE1CAP4 PO; +CIPR-250 PO; +CYCL10TA PO; +GABA-1171 PO; -LIDOCAINE 2% INJ 100 MG/5 ML SDV (FOR ANES.) As Ordered; -LIDOCAINE W/EPINEPHRINE 1% 20ML VIAL As Ordered; +LORT5TAB PO; +METO1TAB7 PO; -MIDAZOLAM INJ 2 MG/2 ML VIAL (J2250) As Ordered; +NEUR300C PO; +NEUR400C OR; +NORCOTAB PO; +OXYC20TA2 OR; +PERC5TAB8 PO; -PROPOFOL 200 MG/20 ML VIAL As Ordered; +PROT1TAB2 PO; +RESTASIS OU; -ROCURONIUM BROMIDE 50 MG/5 ML VIAL As Ordered; +SING10TA31 OR; +TEST1INJ3 IM; +TESTPOW5 IM; -THROMBIN SOLN 20,000 UNITS KIT As Ordered; +TIZA4CAP PO; +TRAM50TA2 PO; +ULTR50TA PO; +ZYLO300T6 PO; +[UNRECOGNIZED DRUG - OTHER] TOP; -dexameTHASONE 4 MG/ML 1ML VIAL (J1100) As Ordered; -fentaNYL 250 MCG/5 ML INJECTION (J3010) As Ordered; -methylPREDNISolone SUSP 40 MG/ML (DEPO-medrol) VIAL (J1030) As Ordered
[2019-01-07 00:07] LABS: ANA (HEP2) Negative (.); ANGIOTENSIN 1 CONVERTING ENZYM 21 U/L (14-82); CYCLIC CITRULLINATED PEPTIDE 6 units (0-19)
[2019-01-09 00:08] LABS: HLA-B27 Negative (.); RNP ANTIBODY < 0.2 AI (0.0-0.9); SMITHS ANTIBODY < 0.2 AI (0.0-0.9); SSA SJOGRENS A <0.2 AI (0.0-0.9); SSB SJOGRENS B <0.2 AI (0.0-0.9)
== END ==
LOC: M SFHCPLAZ 14:00
PROVIDERS: ATTEND Internal Medicine Rheumatology
DX: M25.50 Pain in unspecified joint (principal)

== ENCOUNTER → 2019-01-19 | Outpatient (CLI) | payer OTHER ==
[~2019-01-19] MED LIST changes: -/PANT40TA OR; +BACL-60 PO; -BACL10TA PO; +HYDR-3715 PO; -NORCOTAB PO; +PROT1TAB2 OR
--- NOTE | 2019-01-20 00:52 | ECWPNPC ---
PATIENT NAME: CORY JEFFERY : 1965 GENDER: MALE VISIT DATE: 01/19/2019 DISCHARGE DATE: 01/19/19 1354 VISIT LOCKED DATE TIME: PHYSICIAN: ALEX SOL RESOURCE: ALEX SOL REASON FOR APPOINTMENT 1. CHRONIC PAIN HISTORY OF PRESENT ILLNESS HISTORY OF PRESENT ILLNESS: PAIN THE PATIENT DESCRIBES THE PAIN... 53 YR OLD MALE WITH CHRONIC LOW BACK PAIN. HAS HAS BACK SURGERY AND IS S/P: L5-S1 HEMILAMINECTOMY AND DISCECTOMY.MRI 2018: DEGENERATIVE DISC DISEASE.HAS BEEN FEELING MORE PAIN IN THE SITE OF PREVIOUS HERNIA REPAIR. PT ADVISED TO F/U WITH PCP.PATIENT WOULD ALSO LIKE TO CUT DOWN N TRAMADOL TO 2TABS DAILY. FALL RISK SCREENING: SCREENING :NO FALLS REPORTED IN THE LAST YEAR CURRENT MEDICATIONS TAKING GABAPENTIN 100 MG CAPSULE ORALLY 3 TIMES A DAY TAKING METOPROLOL SUCCINATE ER 100 MG TABLET EXTENDED RELEASE 24 HOUR 1 TABLET ORALLY ONCE A DAY TAKING PROPECIA 1 MG TABLET 1 TABLET ORALLY ONCE A DAY TAKING TRAMADOL HCL 50 MG TABLET 1 TABLET NEEDED ORALLY EVERY 6 HRS PRN PAIN MDD=3 NOT-TAKING FLEXERIL 10 MG TABLET 1 TABLET NEEDED ORALLY THREE TIMES A DAY MEDICATION LIST REVIEWED AND RECONCILED WITH THE PATIENT PAST MEDICAL HISTORY HYPERTENSION HISTORY OF KIDNEY STONES HERNIATED DDD LUMBAR L5-S! NECK PAIN ILIOINGUINAL HERNIA REPAIR TWICE ON EACH SIDE/ NEURALGIA CHRONIC PAIN WITH DR JOHN PELLUCID MARGINAL DEGENERATION FIBROMYALGIA PTSD DEPRESSION ALLERGIES N.K.D.A. SURGICAL HISTORY AMPUTATION LEFT PINKY FINGER 05/1970 LEFT INGUINIAL HERNIA REPAIR 03/1996 RIGHT INGUINIAL HERNIA REPAIR 04/2002 RIGHT SHOULDER ROTATOR CUFF REPAIR AND CLAVICULAR RESECTION AND REPAIR OF TEAR 04/2009 AND 04/2010 BILATERAL INGUINIAL REPAIR 2012 LEFT PLICA REMOVAL 2004 AND 2010 LEFT WRIST CARPUL TUNNEL REPAIR 2012 LUMBAR DISCECTOMY L5-S1 2013 FAMILY HISTORY FATHER: ALIVE, DIAGNOSED WITH CANCER MOTHER: ALIVE, CANCER PATERNAL GRAND FATHER: RHEUMATOID / PSORIATIC ARTHRITIS PATERNAL GRAND MOTHER: RHEUMATOID SISTER: LUPUS, DIAGNOSED WITH CANCER 1 SISTER(S) - HEALTHY. NEICE- LUPUS\\\\N\\\\NPATERNAL AUNTS- RHEUMATOID. SOCIAL HISTORY GENERAL: TOBACCO USE ARE YOU A:NONSMOKER LATEX QUESTIONNAIRE LATEX ALLERGY : HAVE YOU EVER DEVELOPED ANY TYPE OF REACTION AFTER HANDLING LATEX PRODUCTS SUCH RUBBER GLOVES, CONDOMS, DIAPHRAGMS, BALLOONS, SOCKS, OR UNDERWEAR?NO LATEX ALLERGY : HAVE YOU EVER DEVELOPED ANY TYPE OF REACTION DURING OR AFTER DENTAL APPOINTMENT, VAGINAL/RECTAL EXAMINATION, SURGICAL PROCEDURE, OR ANY OTHER EXPOSURE?NO LATEX RISK : HAVE YOU EVER HAD ANY DIFFICULTY BREATHING OR HIVES AFTER EATING OR HANDLING ANY FRUITS, OR VEGETABLES; SUCH KIWI, BANANAS, STONE FRUITS, OR CHESTNUTSNO LATEX RISK : DO YOU HAVE A PREVIOUS PERSONAL HISTORY OF MORE THAN NINE SURGERIES, SPINA BIFIDA, OR REPEATED CATHERTIZATIONS? YES - PLEASE INDICATE : > 9 SURGERIES LATEX RISK : ARE YOU FREQUENTLY EXPOSED TO LATEX PRODUCTS IN YOUR OCCUPATION?NO DATE ASKED : 01/19/2019 ALCOHOL SCREENING DID YOU HAVE A DRINK CONTAINING ALCOHOL IN THE PAST YEAR?YES HOW OFTEN DID YOU HAVE A DRINK CONTAINING ALCOHOL IN THE PAST YEAR?TWO TO FOUR TIMES A MONTH (2 POINTS) HOW MANY DRINKS DID YOU HAVE ON A TYPICAL DAY WHEN YOU WERE DRINKING IN THE PAST YEAR?1 OR 2 (0 POINTS) HOW OFTEN DID YOU HAVE SIX OR MORE DRINKS ON ONE OCCASION IN THE PAST YEAR?NEVER (0 POINTS) POINTS2 INTERPRETATIONNEGATIVE RECREATIONAL DRUG USE DRUG USE?NO CAFFEINE CAFFEINE USE?YES COFFEE HIV / HEP-C SCREENING HIV TEST OFFERED TO PATIENT:NO HEP-C TEST OFFERED TO PATIENT:NO TAOIST [id number] SHINTO LANGUAGE LANGUAGES SPOKEN:MOHAWK EDUCATION LEVEL OF EDUCATION:FINISHED COLLEGE LEARNING BARRIERS / SPECIAL NEEDS CHANGE FROM LAST VISIT?NO BARRIERS TO LEARNING?NO HEARING IMPAIRED?NO VISION IMPAIRED?YES :CORRECTIVE LENSES COGNITIVELY IMPAIRED?NO READINESS TO LEARN?YES LEARNING PREFERENCES?NO LEARNING CAPABILITIES PRESENT?YES EMOTIONAL BARRIERS?NO SPECIAL DEVICES?NO LOCKER PLANT ATTENDANT NEEDED?NO OCCUPATION: UNEMPLOYED. 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 EXERCISE: NONE. MARITAL STATUS: SINGLE. OTHERS AT HOME: FATHER AND GIRLFRIEND. PAIN CLINIC PFS, CLERGY, PUBLIC HEALTH REFERRALS PFS REFERRAL NEEDED?NO CLERGY REFERRAL NEEDED?NO PUBLIC HEALTH REFERRAL NEEDED?NO WAS THE PROVIDER NOTIFIED OF ANY PERTINENT INFO?NO HAS THE PATIENT BEEN EDUCATED REGARDING HIS/HER PLAN OF CARE?YES HAS THE PATIENT BEEN EDUCATED REGARDING PAIN, THE RISK FOR PAIN, THE IMPORTANCE OF EFFECTIVE PAIN MANAGEMENT, AND THE PAIN ASSESSMENT PROCESS?YES ADVANCE DIRECTIVE ADVANCE DIRECTIVE DISCUSSED WITH PATIENT:YES PT HAS NO HCP , DECLINES INFORMATION AND ASSISTANCE AT THIS TIME. REVIEWED WITH PT 07/21/18 1500 LASREVIEWED WITH PT 01/19/19 1316 BV. HOSPITALIZATION/MAJOR DIAGNOSTIC PROCEDURE SEE ABOVE DCS TRIAL REVIEW OF SYSTEMS REVIEWED BY: PROVIDER: YUE . CONSTITUTIONAL: ANY CHANGE IN YOUR MEDICAL CONDITION? YES, DIAGNOSED WITH FIBROMYALGIA, PTSD, AND DEPRESSION BY RHEUMATOLOGY AND FAMILY HEALTH . CHILLSofía NO . FEVER NO . INFECTION: DO YOU HAVE NEW INFECTIONS? NO . DO YOU HAVE HISTORY OF MRSA? NO . MUSCULOSKELETAL: ANY NEW PATTERNS OF PAIN OR NUMBNESS? NO . GASTROENTEROLOGY: ANY NEW CHANGE IN BOWEL CONTROL? NO . GENITOURINARY: ANY NEW CHANGE IN BLADDER CONTROL? NO . IS THERE A CHANCE YOU COULD BE ? NO . HEMATOLOGY/LYMPH: DO YOU TAKE ANY BLOOD THINNERS? (FOR EXAMPLE- COUMADIN, PLAVIX, AGGRENOX, PLATEL, PRADAXA, OR XARELTO) NO . WHEN WAS YOUR LAST DOSE? DATE: TIME: . NEUROLOGY: HAVE YOU FALLEN IN THE PAST 12 MONTHS? YES, PT STATES HE HAS HAD A FEW FALLS DUE TO RIGHT FOOT SPASMS AND CAUSING HIM TO TRIP. DENIES ANY INJURIES OR ED VISIT ASSOCIATED WITH ANY FALL. . ANY NEW EXTREMITY NUMBNESS OR WEAKNESS? NO . CARDIOLOGY: DO YOU HAVE A PACEMAKER OR DEFIBRILLATOR? NO . RESPIRATORY: HAVE YOU BEEN SICK IN THE PAST WEEK? NO . FEVER NO . FLU LIKE SYMPTOMS? NO . COUGH NO . INTEGUMENTARY: DO YOU HAVE ANY RASHES OR OPEN SORES? NO . ALLERGIC/IMMUNO: ARE YOU ALLERGIC TO IV DYE? NO . ANY NEW ALLERGIES? NO . PSYCHIATRIC: DO YOU HAVE THOUGHTS OF HURTING YOURSELF OR SOMEONE ELSE? NO . ARE YOU ABUSED, NEGLECTED, OR IN AN UNSAFE ENVIRONMENT? NO . ENDOCRINOLOGY: ARE YOU DIABETIC? NO . OTHER: DO YOU NEED ANY PRESCRIPTIONS? YES, TRAMADOL . IF YES, PLEASE LIST: ____ . ANY NEW PROBLEMS WITH YOUR MEDICATIONS? NO . WHEN DID YOU LAST EAT? ____ . WHEN DID YOU LAST DRINK? ____ . WHAT DID YOU LAST DRINK? ____ . NAME OF PERSON DRIVING YOU HOME? ____ . DO YOU HAVE ANY OTHER QUESTIONS OR CONCERNS NO . VITAL SIGNS WT 235 LBS, HT 70", BMI 33.72 INDEX, BP 132/80 MM HG, HR 75 /MIN, RR 18 /MIN, TEMP 98.2 F, OXYGEN SAT % 96%, NA INITIALS SC 12:58, REVIEWED BY: BV. EXAMINATION GENERAL EXAMINATION: GENERAL APPEARANCE:NO ACUTE DISTRESS, WELL NOURISHED AND HYDRATED. PSYCHAPPROPRIATE MOOD AND AFFECT . LUNGS:CLEAR TO AUSCULTATION BILATERALLY, NO WHEEZES, RHONCHI, RALES. HEART:NO MURMURS, REGULAR RATE AND RHYTHM. BACK:NO CVA TENDERNESS, UNREMARKABLE SI JOINT TENDERNESS ON PALPATION WITH WITH EXTENSIONAND ROTATION OF LUMBAR SPINE CARL TEST POS LEFT SIDE. ASSESSMENTS LUMBAR POST-LAMINECTOMY SYNDROME - M96.1 (PRIMARY) SACROILIITIS - M46.1 LUMBAR RADICULOPATHY - M54.16 TREATMENT LUMBAR POST-LAMINECTOMY SYNDROME CONTINUE TRAMADOL HCL TABLET, 50 MG, 1 TABLET NEEDED, ORALLY, EVERY 6 HRS PRN PAIN MDD=3, 30 DAYS, 90, REFILLS 0 CLINICAL NOTES: ISTOP REGISTRY REVIEWED AND DEMONSTRATES COMPLLIANCE. (REF #[id number] ) BRINGS IN MEDICATIONS WHICH IS APPROPRIATE FOR WHAT WAS DISPENSED. RECENT URINE TOXICOLOGY REVIEWED. NO UNAUTHORIZED MEDICATIONS. NO ILLICIT SUBSTANCES AND PRESCRIBED MEDICATIONS WERE PRESENT. , RISKS AND BENEFITS OF NARCOTIC/OPIOD MEDICATIONS WERE REVIEWED WITH PATIENT - THIS INCLUDES BUT IS NOT LIMITED TO RISK OF DEPENDANCE/DEVELOPMENT OF ADDICTION, MOOD DISTURBANCE AND DEPRESSION, OSTEOPOROSIS, HORMONAL AND LABIDAL CHANGES, RESPIRATORY DEPRESSION AND . PATIENT IS ADVISED NOT TO DRIVE OR DRINK ALCOHOL WHILE ON THESE MEDICATIONS. SACROILIITIS CLINICAL NOTES: BILATERAL SIJ. PREVENTIVE MEDICINE PAIN CLINIC TEACHING: PROCEDURE TEACHING PT GIVEN WRITTEN AND VERBAL PRE-PROCEDURE INSTRUCTIONS. PT VERBALIZES UNDERSTANDING OF ALL INSTRUCTIONS, STATING HE HAS HAD THIS PROCEDURE A FEW YEARS AGO. NANETTE BELLO 01/19/2019 1:56:49 PM > . PROCEDURE CODES FA211 ESTABILISHED PATIENT [facility] FACILITY CHARGE DISPOSITION & COMMUNICATION FOLLOW UP POST PROCEDURE (REASON: BILATERAL SIJ) ELECTRONICALLY SIGNED BY BOGDAN YOUNG ON 01/19/2019 AT 03:34 PM EDT DISCLAIMER : THIS IS A VISIT SUMMARY EXTRACTED FROM THE [employer] CHART. IT IS NOT A COPY OF THE [employer] PROGRESS NOTE. LYNDSAY
== END ==
LOC: M PAIN 13:00
PROVIDERS: ATTEND Nurse Practitioner Family
DX: M96.1 Postlaminectomy syndrome, not elsewhere classified (principal); M46.1 Sacroiliitis, not elsewhere classified; M54.16 Radiculopathy, lumbar region; I10 Essential (primary) hypertension; M79.7 Fibromyalgia; Z86.59 Personal history of other mental and behavioral disorders; Z91.81 History of falling; Z79.899 Other long term (current) drug therapy

== ENCOUNTER → 2019-02-15 | Outpatient (CLI) | payer OTHER ==
[~2019-02-15] MED LIST changes: +BUPIVACAINE HCL 0.25% 30 ML VIAL As Ordered ONE; +ISOVUE-M 300 61% 15ML VIAL (Q9967) As Ordered ONE; +LIDOCAINE 1% SDV INJ 30 ML VIAL As Ordered ONE; +TRIAMCINOLONE ACETONIDE SUSP 40 MG/ML VIAL (J3301) As Ordered ONE; +diazePAM 5 MG TAB As Ordered ONE; +oxyCODONE 5MG TAB As Ordered ONE
--- NOTE | 2019-02-15 14:59 | REP ---
SI joint series: Four views. History: SI joint injection for pain. Findings: A sequence of four last image hold fluoroscopically obtained spot radiographs of the left SI joint document various needle positions associated with left SI joint injection. 14 seconds of fluoroscopy time is reported. Electronically Signed by Hilario Evans MD 02/15/2019 02:51 P
--- NOTE | 2019-03-03 23:36 | ECWPNPC ---
PATIENT NAME: CORY JEFFERY : 1965 GENDER: MALE VISIT DATE: 02/15/2019 DISCHARGE DATE: 02/15/19 1449 VISIT LOCKED DATE TIME: PHYSICIAN: LISY JOHN MD RESOURCE: LISY JOHN MD REASON FOR APPOINTMENT 1. LEFT SIJ HISTORY OF PRESENT ILLNESS HISTORY OF PRESENT ILLNESS: PAIN THE PATIENT DESCRIBES THE PAIN... FALL RISK SCREENING: SCREENING :NO FALLS REPORTED IN THE LAST YEAR CURRENT MEDICATIONS TAKING GABAPENTIN 100 MG CAPSULE ORALLY 3 TIMES A DAY, NOTES: 02/15/19599 TAKING METOPROLOL SUCCINATE ER 100 MG TABLET EXTENDED RELEASE 24 HOUR 1 TABLET ORALLY ONCE A DAY, NOTES: 02/15/19599 TAKING PROPECIA 1 MG TABLET 1 TABLET ORALLY ONCE A DAY, NOTES: 02/15/19599 TAKING TRAMADOL HCL 50 MG TABLET 1 TABLET NEEDED ORALLY EVERY 6 HRS PRN PAIN MDD=3, NOTES: 02/15/19599 NOT-TAKING FLEXERIL 10 MG TABLET 1 TABLET NEEDED ORALLY THREE TIMES A DAY MEDICATION LIST REVIEWED AND RECONCILED WITH THE PATIENT PAST MEDICAL HISTORY HYPERTENSION HISTORY OF KIDNEY STONES HERNIATED DDD LUMBAR L5-S1 NECK PAIN ILIOINGUINAL HERNIA REPAIR TWICE ON EACH SIDE/ NEURALGIA CHRONIC PAIN WITH DR JOHN PELLUCID MARGINAL DEGENERATION FIBROMYALGIA PTSD DEPRESSION ALLERGIES POISON MERT: RASH AND ITCHING - ALLERGY SURGICAL HISTORY AMPUTATION LEFT PINKY FINGER 05/1970 LEFT INGUINIAL HERNIA REPAIR 03/1996 RIGHT INGUINIAL HERNIA REPAIR 04/2002 RIGHT SHOULDER ROTATOR CUFF REPAIR AND CLAVICULAR RESECTION AND REPAIR OF TEAR 04/2009 AND 04/2010 BILATERAL INGUINIAL REPAIR 2011 LEFT PLICA REMOVAL 2004 AND 2010 LEFT WRIST CARPUL TUNNEL REPAIR 2012 LUMBAR DISCECTOMY L5-S1 2013 FAMILY HISTORY FATHER: ALIVE, DIAGNOSED WITH CANCER MOTHER: ALIVE, CANCER PATERNAL GRAND FATHER: RHEUMATOID / PSORIATIC ARTHRITIS PATERNAL GRAND MOTHER: RHEUMATOID SISTER: LUPUS, DIAGNOSED WITH CANCER 1 SISTER(S) - HEALTHY. NEICE- LUPUS\\\\N\\\\NPATERNAL AUNTS- RHEUMATOID. SOCIAL HISTORY GENERAL: TOBACCO USE ARE YOU A:NONSMOKER HIV / HEP-C SCREENING HIV TEST OFFERED TO PATIENT:NO HEP-C TEST OFFERED TO PATIENT:NO OTHERS AT HOME: FATHER AND GIRLFRIEND. EDUCATION LEVEL OF EDUCATION:FINISHED COLLEGE DIET: REGULAR. LANGUAGE LANGUAGES SPOKEN:JAPANESE RECREATIONAL DRUG USE DRUG USE?NO EXERCISE: NONE. LEARNING BARRIERS / SPECIAL NEEDS CHANGE FROM LAST VISIT?NO BARRIERS TO LEARNING?NO HEARING IMPAIRED?NO VISION IMPAIRED?YES :CORRECTIVE LENSES COGNITIVELY IMPAIRED?NO READINESS TO LEARN?YES LEARNING PREFERENCES?NO LEARNING CAPABILITIES PRESENT?YES EMOTIONAL BARRIERS?NO SPECIAL DEVICES?NO BRAND ANALYST NEEDED?NO PAIN CLINIC PFS, CLERGY, PUBLIC HEALTH REFERRALS PFS REFERRAL NEEDED?NO CLERGY REFERRAL NEEDED?NO PUBLIC HEALTH REFERRAL NEEDED?NO WAS THE PROVIDER NOTIFIED OF ANY PERTINENT INFO?NO HAS THE PATIENT BEEN EDUCATED REGARDING HIS/HER PLAN OF CARE?YES HAS THE PATIENT BEEN EDUCATED REGARDING PAIN, THE RISK FOR PAIN, THE IMPORTANCE OF EFFECTIVE PAIN MANAGEMENT, AND THE PAIN ASSESSMENT PROCESS?YES LATEX QUESTIONNAIRE LATEX ALLERGY : HAVE YOU EVER DEVELOPED ANY TYPE OF REACTION AFTER HANDLING LATEX PRODUCTS SUCH RUBBER GLOVES, CONDOMS, DIAPHRAGMS, BALLOONS, SOCKS, OR UNDERWEAR?NO LATEX ALLERGY : HAVE YOU EVER DEVELOPED ANY TYPE OF REACTION DURING OR AFTER DENTAL APPOINTMENT, VAGINAL/RECTAL EXAMINATION, SURGICAL PROCEDURE, OR ANY OTHER EXPOSURE?NO LATEX RISK : HAVE YOU EVER HAD ANY DIFFICULTY BREATHING OR HIVES AFTER EATING OR HANDLING ANY FRUITS, OR VEGETABLES; SUCH KIWI, BANANAS, STONE FRUITS, OR CHESTNUTSNO LATEX RISK : DO YOU HAVE A PREVIOUS PERSONAL HISTORY OF MORE THAN NINE SURGERIES, SPINA BIFIDA, OR REPEATED CATHERTIZATIONS? YES - PLEASE INDICATE : > 9 SURGERIES LATEX RISK : ARE YOU FREQUENTLY EXPOSED TO LATEX PRODUCTS IN YOUR OCCUPATION?NO DATE ASKED : 01/19/2019 CAFFEINE CAFFEINE USE?YES COFFEE ADVANCE DIRECTIVE ADVANCE DIRECTIVE DISCUSSED WITH PATIENT:YES PT DOES NOT HAVE ANY ADVANCED DIRECTIVES AND HE DECLINES INFORMATION ON HCP AT THIS. [facility] [id number] CONGREGATIONAL MARITAL STATUS: SINGLE. ALCOHOL SCREENING DID YOU HAVE A DRINK CONTAINING ALCOHOL IN THE PAST YEAR?YES HOW OFTEN DID YOU HAVE A DRINK CONTAINING ALCOHOL IN THE PAST YEAR?TWO TO FOUR TIMES A MONTH (2 POINTS) HOW MANY DRINKS DID YOU HAVE ON A TYPICAL DAY WHEN YOU WERE DRINKING IN THE PAST YEAR?1 OR 2 (0 POINTS) HOW OFTEN DID YOU HAVE SIX OR MORE DRINKS ON ONE OCCASION IN THE PAST YEAR?NEVER (0 POINTS) POINTS2 INTERPRETATIONNEGATIVE OCCUPATION: UNEMPLOYED. REVIEWED WITH PT 07/21/18 1500 LASREVIEWED WITH PT 01/19/19 1316 BV. HOSPITALIZATION/MAJOR DIAGNOSTIC PROCEDURE SEE ABOVE DCS TRIAL REVIEW OF SYSTEMS REVIEWED BY: PROVIDER: . CONSTITUTIONAL: ANY CHANGE IN YOUR MEDICAL CONDITION? NO . CHILLS NO . FEVER NO . INFECTION: DO YOU HAVE NEW INFECTIONS? NO . DO YOU HAVE HISTORY OF MRSA? NO . MUSCULOSKELETAL: ANY NEW PATTERNS OF PAIN OR NUMBNESS? NO . GASTROENTEROLOGY: ANY NEW CHANGE IN BOWEL CONTROL? NO . GENITOURINARY: ANY NEW CHANGE IN BLADDER CONTROL? NO . IS THERE A CHANCE YOU COULD BE ? NO . HEMATOLOGY/LYMPH: DO YOU TAKE ANY BLOOD THINNERS? (FOR EXAMPLE- COUMADIN, PLAVIX, AGGRENOX, PLATEL, PRADAXA, OR XARELTO) NO . WHEN WAS YOUR LAST DOSE? DATE: TIME: . NEUROLOGY: HAVE YOU FALLEN IN THE PAST 12 MONTHS? YES, FELL LAST WEEKEND FROM WEAKNESS RIGHT FOOT . ANY NEW EXTREMITY NUMBNESS OR WEAKNESS? NO . CARDIOLOGY: DO YOU HAVE A PACEMAKER OR DEFIBRILLATOR? NO . RESPIRATORY: HAVE YOU BEEN SICK IN THE PAST WEEK? NO . FEVER NO . FLU LIKE SYMPTOMS? NO . COUGH NO . INTEGUMENTARY: DO YOU HAVE ANY RASHES OR OPEN SORES? NO . ALLERGIC/IMMUNO: ARE YOU ALLERGIC TO IV DYE? NO . ANY NEW ALLERGIES? NO . PSYCHIATRIC: DO YOU HAVE THOUGHTS OF HURTING YOURSELF OR SOMEONE ELSE? NO . ARE YOU ABUSED, NEGLECTED, OR IN AN UNSAFE ENVIRONMENT? NO . ENDOCRINOLOGY: ARE YOU DIABETIC? NO . OTHER: DO YOU NEED ANY PRESCRIPTIONS? NO . IF YES, PLEASE LIST: ____ . ANY NEW PROBLEMS WITH YOUR MEDICATIONS? NO . WHEN DID YOU LAST EAT? 02/14/191999 . WHEN DID YOU LAST DRINK? 02/15/19 0600 . WHAT DID YOU LAST DRINK? WATER . NAME OF PERSON DRIVING YOU HOME? MAYURI . DO YOU HAVE ANY OTHER QUESTIONS OR CONCERNS NO PT HAS NOT HAD ANY VACCINES IN THE PAST 30 DAYS . VITAL SIGNS WT 231.4 LBS, HT 70", BMI 33.20 INDEX, BP 131/84 MM HG, HR 63 /MIN, RR 18 /MIN, TEMP 98.0 F, OXYGEN SAT % 98%, NA INITIALS SC 11;52, REVIEWED BY: THERON. ASSESSMENTS SACROILIITIS - M46.1 (PRIMARY) TREATMENT SACROILIITIS [facility] FLUORO GUIDANCE (PAIN)[id number] PROCEDURES PN SI PRE PROCEDURE DIAGNOSIS SACROILIITIS, SACROILIAC JOINT DYSFUNCTION POST PROCEDURE DIAGNOSIS SACROILIITIS, SACROILIAC JOINT DYSFUNCTION PROCEDURE LEFT SACROILIAC JOINT BLOCK SURGEON DR. LISY JOHN FISH ROE PROCESSOR NONE ANESTHESIA LOCAL PRE PROCEDURE NOTE PATIENT WITH HISTORY OF CHRONIC LOW BACK PAIN. I EVALUATED THE PATIENT AND REVIEWED THE CHART. I WENT OVER THE RISKS, ALTERNATIVES, AND BENEFITS ASSOCIATED WITH THIS PROCEDURE. THE PATIENT WOULD LIKE TO PROCEED AND GAVE CONSENT TO PERFORM THE PROCEDURE. THE PATIENT DENIES UNEXPLAINABLE WEIGHT LOSS, FEVER, CHILLS, OR NEW CHANGES IN URINARY OR BOWEL CONTROL DESCRIPTION OF PROCEDURE THE PATIENT WAS BROUGHT TO THE PROCEDURE ROOM AND PLACED IN THE PRONE POSITION. THE LUMBOSACRAL AREA WAS CLEANED WITH CHLORAPREP SOLUTION AND DRAPED ASEPTICALLY. THE PROCEDURE WAS DONE UNDER STERILE CONDITIONS. I CHECKED LATERALITY AND THE LEVEL WHERE THE PROCEDURE WAS GOING TO BE PERFORMED WITH THE PATIENT AND THE SUPPORTING STAFF AT THE MOMENT OF THE TIME OUT IN THE PROCEDURE ROOM. UNDER FLUOROSCOPIC GUIDANCE, TARGET POINT WAS SELECTED AT THE LOWER BORDER OF THE LEFT SACROILIAC JOINT. TARGET POINT WAS SELECTED AFTER MEDIAL ROTATION AND TILT OF THE MAGNIFIER OF THE C-ARM. LIDOCAINE WAS USED TO NUMB THE SKIN AND SUBCUTANEOUS TISSUE BELOW IT. A SPINAL NEEDLE, 22-GAUGE, WAS ADVANCED UNDER FLUOROSCOPIC GUIDANCE AND FOLLOWING PATIENT FEEDBACK UNTIL THE TARGET AREA WAS TOUCHED. THE POSITION OF THE NEEDLE WAS VERIFIED WITH AP AND LATERAL VIEWS. AFTER PROPER POSITION OF THE NEEDLE WAS ACHIEVED, ISOVUE M DYE 30%, 0.25 ML, WAS INJECTED SHOWING SPREAD OF THE DYE. THEN, A SOLUTION OF 20 MG OF KENALOG WAS INJECTED IN LEFT JOINT WITH 3 ML OF BUPIVACAINE 0.125%. THERE WAS NO EVIDENCE OF BLOOD, PARESTHESIA OR CEREBROSPINAL FLUID DURING THE PROCEDURE. THE PATIENT WAS SENT TO THE RECOVERY ROOM. THE PATIENT WAS MOVING THE EXTREMITIES AND DOING WELL. THERE WAS NO COMPLICATION DURING THE PROCEDURE. FLUOROSCOPY TIME WAS 14 SECONDS POST PROCEDURE NOTE THE PATIENT WILL BE SEEN IN A FOLLOW UP IN THE NEXT FEW WEEKS. INSTRUCTIONS WERE GIVEN, QUESTIONS WERE ANSWERED, AND THE PATIENT EXPRESSED UNDERSTANDING AND AGREED WITH THE PLAN. I, ELI OWENS, DOCUMENTED THE ABOVE INFORMATION ACTING A SCRIBE FOR DR. JOHN. I HAVE REVIEWED THE ABOVE DOCUMENT, WRITTEN BY ELI URENAIBAshley AND I VERIFY THAT IT IS ACCURATE. PROCEDURE CODES 6045F RADXPS IN END [id number] PXD [id number] INJECT SACROILIAC JOINT, MODIFIERS: LT DISPOSITION & COMMUNICATION FOLLOW UP 3 WEEKS ELECTRONICALLY SIGNED BY LISY JOHN MD, MD ON 03/03/2019 AT 04:52 PM EDT DISCLAIMER : THIS IS A VISIT SUMMARY EXTRACTED FROM THE [employer] CHART. IT IS NOT A COPY OF THE [employer] PROGRESS NOTE. LYNDSAY
== END ==
LOC: M PAIN 12:00
PROVIDERS: ATTEND Anesthesiology
DX: G89.29 Other chronic pain (principal); M46.1 Sacroiliitis, not elsewhere classified; I10 Essential (primary) hypertension; M79.7 Fibromyalgia; Z91.09 Other allergy status, other than to drugs and biological substances; Z79.899 Other long term (current) drug therapy; Z86.59 Personal history of other mental and behavioral disorders
CPT/HCPCS: 27096; J3301; Q9967

== ENCOUNTER → 2019-03-06 | Outpatient (CLI) | payer OTHER ==
[~2019-03-06] MED LIST changes: -BUPIVACAINE HCL 0.25% 30 ML VIAL As Ordered ONE; -ISOVUE-M 300 61% 15ML VIAL (Q9967) As Ordered ONE; -LIDOCAINE 1% SDV INJ 30 ML VIAL As Ordered ONE; -TRIAMCINOLONE ACETONIDE SUSP 40 MG/ML VIAL (J3301) As Ordered ONE; -diazePAM 5 MG TAB As Ordered ONE; -oxyCODONE 5MG TAB As Ordered ONE
[2019-03-06 14:35] LABS: THYROID STIMULATING HORMONE 1.94 uIU/ML (0.358-3.740)
[2019-03-06 14:38] LABS: FOLATE 7.1 NG/ML
[2019-03-11 17:27] LABS: VITAMIN B1 LEVEL WHOLE BLOOD 145.9 nmol/L (66.5-200.0); VITAMIN B6,PYRIDOXAL PHOSPHATE 63.3 ug/L (5.3-46.7); VITAMIN E(ALPHA TOCOPHEROL) 9.5 mg/L (7.0-25.1); VITAMIN E(GAMMA TOCOPHEROL) 1.9 mg/L (0.5-5.5)
== END ==
LOC: M LAB 13:24
PROVIDERS: ATTEND Psychiatry & Neurology Neurology
DX: R41.3 Other amnesia (principal)

== ENCOUNTER → 2019-03-08 | Outpatient (CLI) | payer OTHER ==
--- NOTE | 2019-03-20 02:49 | ECWPNPC ---
PATIENT NAME: CORY JEFFERY : 1965 GENDER: MALE VISIT DATE: 03/08/2019 DISCHARGE DATE: 03/08/19 1531 VISIT LOCKED DATE TIME: PHYSICIAN: SCOTT GERARDO RESOURCE: SCOTT GERARDO REASON FOR APPOINTMENT 1. POST SIJ HISTORY OF PRESENT ILLNESS HISTORY OF PRESENT ILLNESS: HERE FOR POST PROCEDURE F/U.HAD LEFT SIJ ON 02/15/19.REPORTING SIGNIFICANT IMPROVEMENT POST PROCEDURE THAT CONTINUES TODAY.CHIEF AREA OF PAIN IS BILAT GROIN R>L.HAS RESPONDED WELL TO RIGHT GENITOFEMERAL BLOCK IN PAST.HX OF HERNIA REPAIR WITH [facility] SEVERAL YEARS AGO AND HAS HAD BURNING PAIN IN THIS REGION. PAIN THE PATIENT DESCRIBES THE PAIN... FALL RISK SCREENING: SCREENING :NO FALLS REPORTED IN THE LAST YEAR CURRENT MEDICATIONS TAKING GABAPENTIN 100 MG CAPSULE ORALLY 3 TIMES A DAY TAKING METOPROLOL SUCCINATE ER 100 MG TABLET EXTENDED RELEASE 24 HOUR 1 TABLET ORALLY ONCE A DAY TAKING PROPECIA 1 MG TABLET 1 TABLET ORALLY ONCE A DAY TAKING TRAMADOL HCL 50 MG TABLET 1 TABLET NEEDED ORALLY EVERY 6 HRS PRN PAIN MDD=3 TAKING XIIDRA 5 % SOLUTION 1 DROP INTO AFFECTED EYE OPHTHALMIC TWICE A DAY TAKING ROGAINE 2 % SOLUTION 1 ML TO AFFECTED AREA EXTERNALLY TWICE A DAY NOT-TAKING FLEXERIL 10 MG TABLET 1 TABLET NEEDED ORALLY THREE TIMES A DAY MEDICATION LIST REVIEWED AND RECONCILED WITH THE PATIENT PAST MEDICAL HISTORY HYPERTENSION HISTORY OF KIDNEY STONES HERNIATED DDD LUMBAR L5-S1 NECK PAIN ILIOINGUINAL HERNIA REPAIR TWICE ON EACH SIDE/ NEURALGIA CHRONIC PAIN WITH DR JOHN PELLUCID MARGINAL DEGENERATION FIBROMYALGIA PTSD DEPRESSION ALLERGIES POISON MERT: RASH AND ITCHING - ALLERGY SURGICAL HISTORY AMPUTATION LEFT PINKY FINGER 05/1970 LEFT INGUINIAL HERNIA REPAIR 03/1996 RIGHT INGUINIAL HERNIA REPAIR 04/2002 RIGHT SHOULDER ROTATOR CUFF REPAIR AND CLAVICULAR RESECTION AND REPAIR OF TEAR 04/2009 AND 04/2010 BILATERAL INGUINIAL REPAIR 2012 LEFT PLICA REMOVAL 2004 AND 2010 LEFT WRIST CARPUL TUNNEL REPAIR 2012 LUMBAR DISCECTOMY L5-S1 2013 FAMILY HISTORY FATHER: ALIVE, DIAGNOSED WITH CANCER MOTHER: ALIVE, CANCER PATERNAL GRAND FATHER: RHEUMATOID / PSORIATIC ARTHRITIS PATERNAL GRAND MOTHER: RHEUMATOID SISTER: LUPUS, DIAGNOSED WITH CANCER 1 SISTER(S) - HEALTHY. NEICE- LUPUS\\\\N\\\\NPATERNAL AUNTS- RHEUMATOID. SOCIAL HISTORY GENERAL: TOBACCO USE ARE YOU A:NONSMOKER HIV / HEP-C SCREENING HIV TEST OFFERED TO PATIENT:NO HEP-C TEST OFFERED TO PATIENT:NO OTHERS AT HOME: FATHER AND GIRLFRIEND. EDUCATION LEVEL OF EDUCATION:FINISHED COLLEGE DIET: REGULAR. LANGUAGE LANGUAGES SPOKEN:NIUEAN RECREATIONAL DRUG USE DRUG USE?NO EXERCISE: NONE. LEARNING BARRIERS / SPECIAL NEEDS CHANGE FROM LAST VISIT?NO BARRIERS TO LEARNING?NO HEARING IMPAIRED?NO VISION IMPAIRED?YES :CORRECTIVE LENSES COGNITIVELY IMPAIRED?NO READINESS TO LEARN?YES LEARNING PREFERENCES?NO LEARNING CAPABILITIES PRESENT?YES EMOTIONAL BARRIERS?NO SPECIAL DEVICES?NO CLASSIFICATIONS OFFICER CC/CM NEEDED?NO PAIN CLINIC PFS, CLERGY, PUBLIC HEALTH REFERRALS PFS REFERRAL NEEDED?NO CLERGY REFERRAL NEEDED?NO PUBLIC HEALTH REFERRAL NEEDED?NO WAS THE PROVIDER NOTIFIED OF ANY PERTINENT INFO?NO HAS THE PATIENT BEEN EDUCATED REGARDING HIS/HER PLAN OF CARE?YES HAS THE PATIENT BEEN EDUCATED REGARDING PAIN, THE RISK FOR PAIN, THE IMPORTANCE OF EFFECTIVE PAIN MANAGEMENT, AND THE PAIN ASSESSMENT PROCESS?YES LATEX QUESTIONNAIRE LATEX ALLERGY : HAVE YOU EVER DEVELOPED ANY TYPE OF REACTION AFTER HANDLING LATEX PRODUCTS SUCH RUBBER GLOVES, CONDOMS, DIAPHRAGMS, BALLOONS, SOCKS, OR UNDERWEAR?NO LATEX ALLERGY : HAVE YOU EVER DEVELOPED ANY TYPE OF REACTION DURING OR AFTER DENTAL APPOINTMENT, VAGINAL/RECTAL EXAMINATION, SURGICAL PROCEDURE, OR ANY OTHER EXPOSURE?NO LATEX RISK : HAVE YOU EVER HAD ANY DIFFICULTY BREATHING OR HIVES AFTER EATING OR HANDLING ANY FRUITS, OR VEGETABLES; SUCH KIWI, BANANAS, STONE FRUITS, OR CHESTNUTSNO LATEX RISK : DO YOU HAVE A PREVIOUS PERSONAL HISTORY OF MORE THAN NINE SURGERIES, SPINA BIFIDA, OR REPEATED CATHERTIZATIONS? YES - PLEASE INDICATE : > 9 SURGERIES LATEX RISK : ARE YOU FREQUENTLY EXPOSED TO LATEX PRODUCTS IN YOUR OCCUPATION?NO DATE ASKED : 01/19/2019 CAFFEINE CAFFEINE USE?YES COFFEE ADVANCE DIRECTIVE ADVANCE DIRECTIVE DISCUSSED WITH PATIENT:YES PT DOES NOT HAVE ANY ADVANCED DIRECTIVES AND HE DECLINES INFORMATION ON HCP AT THIS. [id number] STATUS: SINGLE. ALCOHOL SCREENING DID YOU HAVE A DRINK CONTAINING ALCOHOL IN THE PAST YEAR?YES HOW OFTEN DID YOU HAVE A DRINK CONTAINING ALCOHOL IN THE PAST YEAR?TWO TO FOUR TIMES A MONTH (2 POINTS) HOW MANY DRINKS DID YOU HAVE ON A TYPICAL DAY WHEN YOU WERE DRINKING IN THE PAST YEAR?1 OR 2 (0 POINTS) HOW OFTEN DID YOU HAVE SIX OR MORE DRINKS ON ONE OCCASION IN THE PAST YEAR?NEVER (0 POINTS) POINTS2 INTERPRETATIONNEGATIVE OCCUPATION: UNEMPLOYED. REVIEWED WITH PT 07/21/18 1500 LASREVIEWED WITH PT 01/19/19 1316 BV. HOSPITALIZATION/MAJOR DIAGNOSTIC PROCEDURE SEE ABOVE DCS TRIAL REVIEW OF SYSTEMS REVIEWED BY: PROVIDER: SCOTT MCFADDEN . CONSTITUTIONAL: ANY CHANGE IN YOUR MEDICAL CONDITION? NO . CHILLS NO . FEVER NO . INFECTION: DO YOU HAVE NEW INFECTIONS? NO . DO YOU HAVE HISTORY OF MRSA? NO . MUSCULOSKELETAL: ANY NEW PATTERNS OF PAIN OR NUMBNESS? NO . GASTROENTEROLOGY: ANY NEW CHANGE IN BOWEL CONTROL? NO . GENITOURINARY: ANY NEW CHANGE IN BLADDER CONTROL? NO . IS THERE A CHANCE YOU COULD BE ? NO . HEMATOLOGY/LYMPH: DO YOU TAKE ANY BLOOD THINNERS? (FOR EXAMPLE- COUMADIN, PLAVIX, AGGRENOX, PLATEL, PRADAXA, OR XARELTO) NO . WHEN WAS YOUR LAST DOSE? DATE: TIME: . NEUROLOGY: HAVE YOU FALLEN IN THE PAST 12 MONTHS? YES, PRIOT TO LAST VISIT . ANY NEW EXTREMITY NUMBNESS OR WEAKNESS? NO . CARDIOLOGY: DO YOU HAVE A PACEMAKER OR DEFIBRILLATOR? NO . RESPIRATORY: HAVE YOU BEEN SICK IN THE PAST WEEK? NO . FEVER NO . FLU LIKE SYMPTOMS? NO . COUGH NO . INTEGUMENTARY: DO YOU HAVE ANY RASHES OR OPEN SORES? NO . ALLERGIC/IMMUNO: ARE YOU ALLERGIC TO IV DYE? NO . ANY NEW ALLERGIES? NO . PSYCHIATRIC: DO YOU HAVE THOUGHTS OF HURTING YOURSELF OR SOMEONE ELSE? NO . ARE YOU ABUSED, NEGLECTED, OR IN AN UNSAFE ENVIRONMENT? NO . ENDOCRINOLOGY: ARE YOU DIABETIC? NO . OTHER: DO YOU NEED ANY PRESCRIPTIONS? NO . IF YES, PLEASE LIST: ____ . ANY NEW PROBLEMS WITH YOUR MEDICATIONS? NO . WHEN DID YOU LAST EAT? ____ . WHEN DID YOU LAST DRINK? ____ . WHAT DID YOU LAST DRINK? ____ . NAME OF PERSON DRIVING YOU HOME? ____ . DO YOU HAVE ANY OTHER QUESTIONS OR CONCERNS NO . VITAL SIGNS WT 278.6 LBS, HT 70", BMI 39.97 INDEX, BP 145/90 MM HG, HR 66 /MIN, RR 18 /MIN, TEMP 98.4 F, OXYGEN SAT % 97%, NA INITIALS AW 1414, REVIEWED BY: EM. EXAMINATION GENERAL EXAMINATION: GENERAL APPEARANCE: ALERT,PLEASANT. PSYCH AFFECT NORMAL. LUNGS: LUNG GASTELUM ARE CLEAR TO AUSCULTATION BILATERALLY. GOOD MOVEMENT OF AIR. HEART: REGULAR RATE AND RHYTHM, NORMAL S1S2. TENDER OVER RIGHT GROIN. 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 PROCEDURE CODES FA211 ESTABILISHED PATIENT [facility] CHARGE DISPOSITION & COMMUNICATION FOLLOW UP POST (REASON: RIGHT GENOFEMORAL NERVE BLOCK) ELECTRONICALLY SIGNED BY BOGDAN CAVAZOS ON 03/19/2019 AT 08:06 AM EDT DISCLAIMER : THIS IS A VISIT SUMMARY EXTRACTED FROM THE [employer] CHART. IT IS NOT A COPY OF THE [employer] PROGRESS NOTE. LYNDSAY
== END ==
LOC: M PAIN 14:15
PROVIDERS: ATTEND Nurse Practitioner Family
DX: M79.2 Neuralgia and neuritis, unspecified (principal); I10 Essential (primary) hypertension; M79.7 Fibromyalgia; Z86.59 Personal history of other mental and behavioral disorders; Z79.899 Other long term (current) drug therapy

== ENCOUNTER → 2019-05-15 | Outpatient (CLI) | payer OTHER ==
[~2019-05-15] MED LIST changes: +BUPIVACAINE HCL 0.25% 30 ML VIAL As Ordered ONE; +ISOVUE-M 200 41% 20ML VIAL (Q9966) As Ordered ONE; +LIDOCAINE 1% SDV INJ 30 ML VIAL As Ordered ONE; +TRIAMCINOLONE ACETONIDE SUSP 40 MG/ML VIAL (J3301) As Ordered ONE; +diazePAM 5 MG TAB As Ordered ONE; +oxyCODONE 5MG TAB As Ordered ONE
--- NOTE | 2019-05-24 00:42 | ECWPNPC ---
PATIENT NAME: CORY JEFFERY : 1965 GENDER: MALE VISIT DATE: 05/15/2019 DISCHARGE DATE: 05/15/19 1013 VISIT LOCKED DATE TIME: PHYSICIAN: LISY JOHN MD RESOURCE: LISY JOHN MD REASON FOR APPOINTMENT 1. RIGHT GENITO-FEMORAL NEURALGIA HISTORY OF PRESENT ILLNESS HISTORY OF PRESENT ILLNESS: PAIN THE PATIENT DESCRIBES THE PAIN... FALL RISK SCREENING: SCREENING :NO FALLS REPORTED IN THE LAST YEAR CURRENT MEDICATIONS TAKING METOPROLOL SUCCINATE ER 100 MG TABLET EXTENDED RELEASE 24 HOUR 1 TABLET ORALLY ONCE A DAY, NOTES: 05-15-19544 TAKING PROPECIA 1 MG TABLET 1 TABLET ORALLY ONCE A DAY, NOTES: 05-15-19544 TAKING XIIDRA 5 % SOLUTION 1 DROP INTO AFFECTED EYE OPHTHALMIC TWICE A DAY, NOTES: 05-15-19544 TAKING GABAPENTIN 100 MG CAPSULE ORALLY 3 TIMES A DAY, NOTES: 05-15-19544 TAKING TRAMADOL HCL 50 MG TABLET 1 TABLET NEEDED ORALLY EVERY 6 HRS PRN PAIN MDD=3, NOTES: 05-15-19544 NOT-TAKING ROGAINE 2 % SOLUTION 1 ML TO AFFECTED AREA EXTERNALLY TWICE A DAY UNKNOWN FLEXERIL 10 MG TABLET 1 TABLET NEEDED ORALLY THREE TIMES A DAY MEDICATION LIST REVIEWED AND RECONCILED WITH THE PATIENT PAST MEDICAL HISTORY HYPERTENSION HISTORY OF KIDNEY STONES HERNIATED DDD LUMBAR L5-S1 NECK PAIN ILIOINGUINAL HERNIA REPAIR TWICE ON EACH SIDE/ NEURALGIA CHRONIC PAIN WITH DR JOHN PELLUCID MARGINAL DEGENERATION FIBROMYALGIA PTSD DEPRESSION DISCITUS ALLERGIES POISON MERT: RASH AND ITCHING - ALLERGY SURGICAL HISTORY AMPUTATION LEFT PINKY FINGER 05/1970 LEFT INGUINIAL HERNIA REPAIR 03/1996 RIGHT INGUINIAL HERNIA REPAIR 04/2002 RIGHT SHOULDER ROTATOR CUFF REPAIR AND CLAVICULAR RESECTION AND REPAIR OF TEAR 04/2009 AND 04/2010 BILATERAL INGUINIAL REPAIR 2012 LEFT PLICA REMOVAL 2004 AND 2010 LEFT WRIST CARPUL TUNNEL REPAIR 2012 LUMBAR DISCECTOMY L5-S1 2013 FAMILY HISTORY FATHER: ALIVE, DIAGNOSED WITH CANCER MOTHER: ALIVE, CANCER PATERNAL GRAND FATHER: RHEUMATOID / PSORIATIC ARTHRITIS PATERNAL GRAND MOTHER: RHEUMATOID SISTER: LUPUS, DIAGNOSED WITH CANCER 1 SISTER(S) - HEALTHY. NEICE- LUPUS\\\\N\\\\NPATERNAL AUNTS- RHEUMATOID. SOCIAL HISTORY GENERAL: TOBACCO USE ARE YOU A:NONSMOKER HIV / HEP-C SCREENING HIV TEST OFFERED TO PATIENT:NO HEP-C TEST OFFERED TO PATIENT:NO OTHERS AT HOME: FATHER AND GIRLFRIEND. EDUCATION LEVEL OF EDUCATION:FINISHED COLLEGE DIET: REGULAR. LANGUAGE LANGUAGES SPOKEN:NIUEAN RECREATIONAL DRUG USE DRUG USE?NO EXERCISE: NONE. LEARNING BARRIERS / SPECIAL NEEDS CHANGE FROM LAST VISIT?NO BARRIERS TO LEARNING?NO HEARING IMPAIRED?NO VISION IMPAIRED?YES :CORRECTIVE LENSES COGNITIVELY IMPAIRED?NO READINESS TO LEARN?YES LEARNING PREFERENCES?NO LEARNING CAPABILITIES PRESENT?YES EMOTIONAL BARRIERS?NO SPECIAL DEVICES?NO CROZE CUTTER HELPER NEEDED?NO PAIN CLINIC PFS, CLERGY, PUBLIC HEALTH REFERRALS PFS REFERRAL NEEDED?NO CLERGY REFERRAL NEEDED?NO PUBLIC HEALTH REFERRAL NEEDED?NO WAS THE PROVIDER NOTIFIED OF ANY PERTINENT INFO?NO HAS THE PATIENT BEEN EDUCATED REGARDING HIS/HER PLAN OF CARE?YES HAS THE PATIENT BEEN EDUCATED REGARDING PAIN, THE RISK FOR PAIN, THE IMPORTANCE OF EFFECTIVE PAIN MANAGEMENT, AND THE PAIN ASSESSMENT PROCESS?YES LATEX QUESTIONNAIRE LATEX ALLERGY : HAVE YOU EVER DEVELOPED ANY TYPE OF REACTION AFTER HANDLING LATEX PRODUCTS SUCH RUBBER GLOVES, CONDOMS, DIAPHRAGMS, BALLOONS, SOCKS, OR UNDERWEAR?NO LATEX ALLERGY : HAVE YOU EVER DEVELOPED ANY TYPE OF REACTION DURING OR AFTER DENTAL APPOINTMENT, VAGINAL/RECTAL EXAMINATION, SURGICAL PROCEDURE, OR ANY OTHER EXPOSURE?NO LATEX RISK : HAVE YOU EVER HAD ANY DIFFICULTY BREATHING OR HIVES AFTER EATING OR HANDLING ANY FRUITS, OR VEGETABLES; SUCH KIWI, BANANAS, STONE FRUITS, OR CHESTNUTSNO LATEX RISK : DO YOU HAVE A PREVIOUS PERSONAL HISTORY OF MORE THAN NINE SURGERIES, SPINA BIFIDA, OR REPEATED CATHERIZATIONS? YES - PLEASE INDICATE : > 9 SURGERIES LATEX RISK : ARE YOU FREQUENTLY EXPOSED TO LATEX PRODUCTS IN YOUR OCCUPATION?NO DATE ASKED : 01/19/2019 CAFFEINE CAFFEINE USE?YES COFFEE ADVANCE DIRECTIVE ADVANCE DIRECTIVE DISCUSSED WITH PATIENT:YES PT DOES NOT HAVE ANY ADVANCED DIRECTIVES AND HE DECLINES INFORMATION ON HCP AT THIS. AMISH [id number] WORSHIP MARITAL STATUS: SINGLE. ALCOHOL SCREENING DID YOU HAVE A DRINK CONTAINING ALCOHOL IN THE PAST YEAR?YES HOW OFTEN DID YOU HAVE A DRINK CONTAINING ALCOHOL IN THE PAST YEAR?TWO TO FOUR TIMES A MONTH (2 POINTS) HOW MANY DRINKS DID YOU HAVE ON A TYPICAL DAY WHEN YOU WERE DRINKING IN THE PAST YEAR?1 OR 2 (0 POINTS) HOW OFTEN DID YOU HAVE SIX OR MORE DRINKS ON ONE OCCASION IN THE PAST YEAR?NEVER (0 POINTS) POINTS2 INTERPRETATIONNEGATIVE OCCUPATION: UNEMPLOYED. REVIEWED WITH PT 07/21/18 1500 LASREVIEWED WITH PT 01/19/19 1316 BV. HOSPITALIZATION/MAJOR DIAGNOSTIC PROCEDURE SEE ABOVE DCS TRIAL REVIEW OF SYSTEMS REVIEWED BY: PROVIDER: . CONSTITUTIONAL: ANY CHANGE IN YOUR MEDICAL CONDITION? NO . CHILLS NO . FEVER NO . INFECTION: DO YOU HAVE NEW INFECTIONS? NO . DO YOU HAVE HISTORY OF MRSA? NO . MUSCULOSKELETAL: ANY NEW PATTERNS OF PAIN OR NUMBNESS? NO . GASTROENTEROLOGY: ANY NEW CHANGE IN BOWEL CONTROL? NO . GENITOURINARY: ANY NEW CHANGE IN BLADDER CONTROL? NO . IS THERE A CHANCE YOU COULD BE ? NO . HEMATOLOGY/LYMPH: DO YOU TAKE ANY BLOOD THINNERS? (FOR EXAMPLE- COUMADIN, PLAVIX, AGGRENOX, PLATEL, PRADAXA, OR XARELTO) NO . WHEN WAS YOUR LAST DOSE? DATE: TIME: . NEUROLOGY: HAVE YOU FALLEN IN THE PAST 12 MONTHS? NO . ANY NEW EXTREMITY NUMBNESS OR WEAKNESS? NO . CARDIOLOGY: DO YOU HAVE A PACEMAKER OR DEFIBRILLATOR? NO . RESPIRATORY: HAVE YOU BEEN SICK IN THE PAST WEEK? NO . FEVER NO . FLU LIKE SYMPTOMS? NO . COUGH NO . INTEGUMENTARY: DO YOU HAVE ANY RASHES OR OPEN SORES? NO . ALLERGIC/IMMUNO: ARE YOU ALLERGIC TO IV DYE? NO . ANY NEW ALLERGIES? NO . PSYCHIATRIC: DO YOU HAVE THOUGHTS OF HURTING YOURSELF OR SOMEONE ELSE? NO . ARE YOU ABUSED, NEGLECTED, OR IN AN UNSAFE ENVIRONMENT? NO . ENDOCRINOLOGY: ARE YOU DIABETIC? NO . OTHER: DO YOU NEED ANY PRESCRIPTIONS? NO . IF YES, PLEASE LIST: ____ . ANY NEW PROBLEMS WITH YOUR MEDICATIONS? NO . WHEN DID YOU LAST EAT? ____05-14-19 2100 . WHEN DID YOU LAST DRINK? ____05-15-19 2100 . WHAT DID YOU LAST DRINK? ____GATORADE . NAME OF PERSON DRIVING YOU HOME? ____HAM GERMAIN RN . DO YOU HAVE ANY OTHER QUESTIONS OR CONCERNS NO . VITAL SIGNS WT 230.1 LBS, HT 70", BMI 33.01 INDEX, BP 137/85 MM HG, HR 69 /MIN, RR 18 /MIN, TEMP 97.5 F, OXYGEN SAT % 98%, NA INITIALS SC 08:46, REVIEWED BY: KG. 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 JEFFERY IS A 49 YEAR OLD MALE PATIENT WITH A HISTORY OF RIGHT TESTICULAR PAIN AND INGUINAL PAIN. WE HAVE PERFORMED IN THE PAST GENITOFEMORAL NERVE BLOCKS, WHICH HAS PROVIDED FOR THE PATIENT ADEQUATE PAIN RELIEF. THE PATIENT WANTS TO HAVE THIS PROCEDURE DONE AGAIN. I WENT THROUGH THE RISKS, ALTERNATIVES, AND BENEFITS ASSOCIATED WITH THIS PROCEDURE AND THE PATIENT EXPRESSED THAT HE WOULD LIKE TO PROCEED. THE PATIENT DENIES UNEXPLAINABLE WEIGHT LOSS, FEVER, CHILLS, OR CHANGES IN URINARY OR BOWEL CONTROL. PROCEDURE NOTE: AFTER CONSENT WAS SIGNED, THE PATIENT WAS BROUGHT TO THE PROCEDURE ROOM AND PLACE IN THE SUPINE POSITION. THE RIGHT GENITOFEMORAL AREA WAS CLEANED WITH CHLORAPREP SOLUTION AND DRAPED ASEPTICALLY. THE PROCEDURE WAS DONE UNDER STERILE STANDARD TECHNIQUES. WITH THE ASSISTANCE OF A NERVE STIMULATOR, WE WENT APPROXIMATELY 2 INCHES LOW TO THE MEDIAL ASPECT OF THE INGUINAL SCAR, FIRST AT 3.0 AND THEN AT 2.0. THE PATIENT WAS HAVING STIMULATION TOWARDS THE RIGHT TESTICLE WHERE HIS USUAL PAIN IS. WE INJECTED THERE A TOTAL OF 20 ML OF BUPIVACAINE 0.125% AND KENALOG 40 MG. THERE WAS NO EVIDENCE OF BLOOD, PARESTHESIA OR VISCERAL PUNCTURE. THERE WAS NO EVIDENCE OF ANY COMPLICATIONS. THE PATIENT TOLERATED THE PROCEDURE WITHOUT COMPLICATIONS AND WAS SENT TO THE RECOVERY ROOM WHERE HE WAS MOVING HIS EXTREMITIES AND DOING WELL. POST-PROCEDURE NOTE: I WILL SEE THE PATIENT IN A FOLLOW UP IN THE NEXT FEW WEEKS. WE ARE LOOKING FOR LONG LASTING PAIN RELIEVE WITH THIS INTERVENTION. THERE WERE NO COMPLICATIONS. INSTRUCTIONS WERE GIVEN QUESTIONS WERE ANSWERED AND THE PATIENT REPORTS UNDERSTANDING AND AGREES. I, RADHA MEJIAS, DOCUMENTED THE ABOVE INFORMATION ACTING A SCRIBE FOR DR. JOHN. I HAVE REVIEWED THE ABOVE DOCUMENT, WRITTEN BY RADHA TREJO AND I VERIFY THAT IT IS ACCURATE. PROCEDURE CODES 02228 N BLOCK INJ ILIO-ING/HYPOGI, MODIFIERS: RT DISPOSITION & COMMUNICATION FOLLOW UP 3 WEEKS ELECTRONICALLY SIGNED BY LISY JOHN MD, MD ON 05/23/2019 AT 12:01 PM EDT DISCLAIMER : THIS IS A VISIT SUMMARY EXTRACTED FROM THE [employer] CHART. IT IS NOT A COPY OF THE [employer] PROGRESS NOTE. MTDD
== END ==
LOC: M PAIN 09:30
PROVIDERS: ATTEND Anesthesiology
DX: G58.8 Other specified mononeuropathies (principal); Z87.438 Personal history of other diseases of male genital organs; Z87.39 Personal history of other diseases of the musculoskeletal system and connective tissue; Z79.899 Other long term (current) drug therapy; Z79.891 Long term (current) use of opiate analgesic
CPT/HCPCS: 64425; J3301; Q9966

== ENCOUNTER → 2019-06-13 | Outpatient (CLI) | payer OTHER ==
[~2019-06-13] MED LIST changes: -BUPIVACAINE HCL 0.25% 30 ML VIAL As Ordered ONE; -ISOVUE-M 200 41% 20ML VIAL (Q9966) As Ordered ONE; -LIDOCAINE 1% SDV INJ 30 ML VIAL As Ordered ONE; -TRIAMCINOLONE ACETONIDE SUSP 40 MG/ML VIAL (J3301) As Ordered ONE; -diazePAM 5 MG TAB As Ordered ONE; -oxyCODONE 5MG TAB As Ordered ONE
--- NOTE | 2019-06-21 01:47 | ECWPNPC ---
PATIENT NAME: CORY JEFFERY : 1965 GENDER: MALE VISIT DATE: 06/13/2019 DISCHARGE DATE: 06/13/19 1437 VISIT LOCKED DATE TIME: PHYSICIAN: SCOTT GERARDO RESOURCE: SCOTT GERARDO REASON FOR APPOINTMENT 1. NEW BODY PART,NECK PAIN HISTORY OF PRESENT ILLNESS HISTORY OF PRESENT ILLNESS: HERE TODAY PER REFERRAL FROM PRIMARY CARE FOR CHRONIC NECK PAIN.OVER THE PAST 2 MONTHS PATIENT HAS BEEN EXPERIENCING PARATHESIAS IN BOTH ARMS AND HANDS R>L.STATES HE HAS HAD MULTIPLE TRAUMATIC INJURIES TO HIS HEAD OVER THE YEARS.RATING NECK PAIN 4/10 VAS.DESCRIBES PAIN CONSTANT ACHING AND BURNING.DENIES RECENT FEVER,ILLNESS OR WEIGHT LOSS.DENIES BOWEL OR BLADDER INCONTINENCE.FOLLOWS WITH US ON A REGULAR BASIS FOR CHRONIC SACRAL/PELVIC/GROIN PAIN AND RECIEVES GENITOFEMORAL BLOCKS.CERVICAL IMAGING DONE 05/03/15 IS SHOWING NEAR OBLITERATION OF SUBARCHANOID SPACE AT C5/6 AND C6/7 CAUSING MODERATE CENTRAL CANAL STENOSIS AT C6/7. PAIN THE PATIENT DESCRIBES THE PAIN... FALL RISK SCREENING: SCREENING :NO FALLS REPORTED IN THE LAST YEAR CURRENT MEDICATIONS TAKING GABAPENTIN 100 MG CAPSULE ORALLY 3 TIMES A DAY TAKING METOPROLOL SUCCINATE 100 MG TABLET EXTENDED RELEASE DIRECTED ORALLY TAKING PROPECIA 1 MG TABLET 1 TABLET ORALLY ONCE A DAY TAKING XIIDRA 5 % SOLUTION 1 DROP INTO AFFECTED EYE OPHTHALMIC TWICE A DAY TAKING TRAMADOL HCL 50 MG TABLET 1 TABLET NEEDED ORALLY EVERY 6 HRS PRN PAIN MDD=3 TAKING ROGAINE 2 % SOLUTION 1 ML TO AFFECTED AREA EXTERNALLY TWICE A DAY DISCONTINUED METOPROLOL SUCCINATE ER 100 MG TABLET EXTENDED RELEASE 24 HOUR 1 TABLET ORALLY ONCE A DAY DISCONTINUED FLEXERIL 10 MG TABLET 1 TABLET NEEDED ORALLY THREE TIMES A DAY MEDICATION LIST REVIEWED AND RECONCILED WITH THE PATIENT PAST MEDICAL HISTORY HYPERTENSION HISTORY OF KIDNEY STONES HERNIATED DDD LUMBAR L5-S1 NECK PAIN ILIOINGUINAL HERNIA REPAIR TWICE ON EACH SIDE/ NEURALGIA CHRONIC PAIN WITH DR JOHN PELLUCID MARGINAL DEGENERATION FIBROMYALGIA PTSD DEPRESSION DISCITUS ALLERGIES POISON MERT: RASH AND ITCHING - ALLERGY SURGICAL HISTORY AMPUTATION LEFT PINKY FINGER 05/1970 LEFT INGUINIAL HERNIA REPAIR 03/1996 RIGHT INGUINIAL HERNIA REPAIR 04/2002 RIGHT SHOULDER ROTATOR CUFF REPAIR AND CLAVICULAR RESECTION AND REPAIR OF TEAR 04/2009 AND 04/2010 BILATERAL INGUINIAL REPAIR 2012 LEFT PLICA REMOVAL 2004 AND 2010 LEFT WRIST CARPUL TUNNEL REPAIR 2012 LUMBAR DISCECTOMY L5-S1 2014 FAMILY HISTORY FATHER: ALIVE, DIAGNOSED WITH OTHER MALIGNANT NEOPLASM OF UNSPECIFIED SITE MOTHER: ALIVE, OTHER MALIGNANT NEOPLASM OF UNSPECIFIED SITE PATERNAL GRAND FATHER: RHEUMATOID / PSORIATIC ARTHRITIS PATERNAL GRAND MOTHER: RHEUMATOID SISTER: LUPUS, DIAGNOSED WITH OTHER MALIGNANT NEOPLASM OF UNSPECIFIED SITE 1 SISTER(S) - HEALTHY. NEICE- LUPUS\\\\N\\\\NPATERNAL AUNTS- RHEUMATOID. SOCIAL HISTORY GENERAL: TOBACCO USE ARE YOU A:NONSMOKER HIV / HEP-C SCREENING HIV TEST OFFERED TO PATIENT:NO HEP-C TEST OFFERED TO PATIENT:NO OTHERS AT HOME: FATHER AND GIRLFRIEND. EDUCATION LEVEL OF EDUCATION:FINISHED COLLEGE DIET: REGULAR. LANGUAGE LANGUAGES SPOKEN:SIERRA LEONEAN RECREATIONAL DRUG USE DRUG USE?NO EXERCISE: NONE. LEARNING BARRIERS / SPECIAL NEEDS CHANGE FROM LAST VISIT?NO BARRIERS TO LEARNING?NO HEARING IMPAIRED?NO VISION IMPAIRED?YES COGNITIVELY IMPAIRED?NO :CORRECTIVE LENSES READINESS TO LEARN?YES LEARNING PREFERENCES?NO LEARNING CAPABILITIES PRESENT?YES EMOTIONAL BARRIERS?NO SPECIAL DEVICES?NO TURKISH RUBBER NEEDED?NO PAIN CLINIC PFS, CLERGY, PUBLIC HEALTH REFERRALS PFS REFERRAL NEEDED?NO CLERGY REFERRAL NEEDED?NO PUBLIC HEALTH REFERRAL NEEDED?NO WAS THE PROVIDER NOTIFIED OF ANY PERTINENT INFO?NO HAS THE PATIENT BEEN EDUCATED REGARDING HIS/HER PLAN OF CARE?YES HAS THE PATIENT BEEN EDUCATED REGARDING PAIN, THE RISK FOR PAIN, THE IMPORTANCE OF EFFECTIVE PAIN MANAGEMENT, AND THE PAIN ASSESSMENT PROCESS?YES LATEX QUESTIONNAIRE LATEX ALLERGY : HAVE YOU EVER DEVELOPED ANY TYPE OF REACTION AFTER HANDLING LATEX PRODUCTS SUCH RUBBER GLOVES, CONDOMS, DIAPHRAGMS, BALLOONS, SOCKS, OR UNDERWEAR?NO LATEX ALLERGY : HAVE YOU EVER DEVELOPED ANY TYPE OF REACTION DURING OR AFTER DENTAL APPOINTMENT, VAGINAL/RECTAL EXAMINATION, SURGICAL PROCEDURE, OR ANY OTHER EXPOSURE?NO DATE ASKED : 01/19/2019 LATEX RISK : HAVE YOU EVER HAD ANY DIFFICULTY BREATHING OR HIVES AFTER EATING OR HANDLING ANY FRUITS, OR VEGETABLES; SUCH KIWI, BANANAS, STONE FRUITS, OR CHESTNUTSNO LATEX RISK : DO YOU HAVE A PREVIOUS PERSONAL HISTORY OF MORE THAN NINE SURGERIES, SPINA BIFIDA, OR REPEATED CATHERIZATIONS? YES - PLEASE INDICATE : > 9 SURGERIES LATEX RISK : ARE YOU FREQUENTLY EXPOSED TO LATEX PRODUCTS IN YOUR OCCUPATION?NO CAFFEINE CAFFEINE USE?YES COFFEE ADVANCE DIRECTIVE ADVANCE DIRECTIVE DISCUSSED WITH PATIENT:YES PT DOES NOT HAVE ANY ADVANCED DIRECTIVES AND HE DECLINES INFORMATION ON HCP AT THIS. ORIENTAL ORTHODOX [id number] MORAVIAN MARITAL STATUS: SINGLE. ALCOHOL SCREENING DID YOU HAVE A DRINK CONTAINING ALCOHOL IN THE PAST YEAR?YES HOW OFTEN DID YOU HAVE SIX OR MORE DRINKS ON ONE OCCASION IN THE PAST YEAR?NEVER (0 POINTS) HOW MANY DRINKS DID YOU HAVE ON A TYPICAL DAY WHEN YOU WERE DRINKING IN THE PAST YEAR?1 OR 2 (0 POINTS) HOW OFTEN DID YOU HAVE A DRINK CONTAINING ALCOHOL IN THE PAST YEAR?TWO TO FOUR TIMES A MONTH (2 POINTS) POINTS2 INTERPRETATIONNEGATIVE OCCUPATION: UNEMPLOYED. REVIEWED WITH PT 07/21/18 1500 LASREVIEWED WITH PT 01/19/19 1316 BV. HOSPITALIZATION/MAJOR DIAGNOSTIC PROCEDURE SEE ABOVE DCS TRIAL REVIEW OF SYSTEMS REVIEWED BY: PROVIDER: SCOTT MCFADDEN . CONSTITUTIONAL: ANY CHANGE IN YOUR MEDICAL CONDITION? NO . CHILLS NO . FEVER NO . INFECTION: DO YOU HAVE NEW INFECTIONS? NO . DO YOU HAVE HISTORY OF MRSA? NO . MUSCULOSKELETAL: ANY NEW PATTERNS OF PAIN OR NUMBNESS? NO . GASTROENTEROLOGY: ANY NEW CHANGE IN BOWEL CONTROL? NO . GENITOURINARY: ANY NEW CHANGE IN BLADDER CONTROL? NO . IS THERE A CHANCE YOU COULD BE ? NO . HEMATOLOGY/LYMPH: DO YOU TAKE ANY BLOOD THINNERS? (FOR EXAMPLE- COUMADIN, PLAVIX, AGGRENOX, PLATEL, PRADAXA, OR XARELTO) NO . WHEN WAS YOUR LAST DOSE? DATE: TIME: . NEUROLOGY: HAVE YOU FALLEN IN THE PAST 12 MONTHS? YES, FELL YESTERDAY FROM RIGHT FOOT DROPFOOT, PT DENIES INJURIES . ANY NEW EXTREMITY NUMBNESS OR WEAKNESS? NO . CARDIOLOGY: DO YOU HAVE A PACEMAKER OR DEFIBRILLATOR? NO . RESPIRATORY: HAVE YOU BEEN SICK IN THE PAST WEEK? NO . FEVER NO . FLU LIKE SYMPTOMS? NO . COUGH NO . INTEGUMENTARY: DO YOU HAVE ANY RASHES OR OPEN SORES? NO . ALLERGIC/IMMUNO: ARE YOU ALLERGIC TO IV DYE? NO . ANY NEW ALLERGIES? NO . PSYCHIATRIC: DO YOU HAVE THOUGHTS OF HURTING YOURSELF OR SOMEONE ELSE? NO . ARE YOU ABUSED, NEGLECTED, OR IN AN UNSAFE ENVIRONMENT? NO . ENDOCRINOLOGY: ARE YOU DIABETIC? NO . OTHER: DO YOU NEED ANY PRESCRIPTIONS? NO . IF YES, PLEASE LIST: ____ . ANY NEW PROBLEMS WITH YOUR MEDICATIONS? NO . WHEN DID YOU LAST EAT? ____ . WHEN DID YOU LAST DRINK? ____ . WHAT DID YOU LAST DRINK? ____ . NAME OF PERSON DRIVING YOU HOME? ____ . DO YOU HAVE ANY OTHER QUESTIONS OR CONCERNS YES, WILL HAVE FLU SHOT SOMETIME . VITAL SIGNS WT 237 LBS, HT 70", BMI 34.00 INDEX, BP 131/85 MM HG, HR 66 /MIN, RR EM, TEMP 97.3 F, OXYGEN SAT % 95, REVIEWED BY: THERON. EXAMINATION GENERAL EXAMINATION: GENERAL AWAKE,ALERT ,PLEAASANT . PSYCH AFFECT NORMAL . LUNGS: LUNG GASTELUM ARE CLEAR TO AUSCULTATION BILATERALLY. GOOD MOVEMENT OF AIR . HEART: S1, S2 IN A REGULAR RATE AND RHYTHM. NO SIGNIFICANT MURMURS, RUBS OR GALLOPS NOTED . CERVICAL TENDER OVER CERVICAL SPINE AND CERVICAL PARASPINALS.. DIAGNOSTIC TESTS REVIEWED MRI C/SPINE-2014. ASSESSMENTS CERVICAL SPINAL STENOSIS - M48.02 (PRIMARY) TREATMENT CERVICAL SPINAL STENOSIS CONTINUE GABAPENTIN CAPSULE, 100 MG, ORALLY, 3 TIMES A DAY CONTINUE TRAMADOL HCL TABLET, 50 MG, 1 TABLET NEEDED, ORALLY, EVERY 6 HRS PRN PAIN MDD=3 [facility] REASON:WOULD LIKE NEUROSURGICAL CLEARANCE BEFORE DOING ANY PT OR INTERVENTIONAL THERAPY DUE TO SEVERITY OF C5/6-C6/7 STENOSIS AND PATIENTS C/O BILAT RADICULAR SYMPTOMS IN ARMS AND HANDS RIGHT >LEFT PROCEDURE CODES FA211 ESTABILISHED PATIENT [facility] CHARGE DISPOSITION & COMMUNICATION FOLLOW UP CX 06/25 F/U F/U W ME IN 6-8WKS (REASON: NECK/LBP/INGUINAL PAIN) ELECTRONICALLY SIGNED BY BOGDAN CAVAZOS ON 06/19/2019 AT 04:28 PM EDT DISCLAIMER : THIS IS A VISIT SUMMARY EXTRACTED FROM THE [employer] CHART. IT IS NOT A COPY OF THE [employer] PROGRESS NOTE. BRIAND
== END ==
LOC: M PAIN 13:15
PROVIDERS: ATTEND Nurse Practitioner Family
DX: M48.02 Spinal stenosis, cervical region (principal); G89.29 Other chronic pain; I10 Essential (primary) hypertension; M79.7 Fibromyalgia; Z86.59 Personal history of other mental and behavioral disorders; Z91.09 Other allergy status, other than to drugs and biological substances; Z79.899 Other long term (current) drug therapy

== ENCOUNTER → 2019-07-26 | Outpatient (CLI) | payer OTHER ==
--- NOTE | 2019-07-31 02:23 | ECWPNPC ---
PATIENT NAME: CORY JEFFERY : 1965 GENDER: MALE VISIT DATE: 07/26/2019 DISCHARGE DATE: 07/26/19 1346 VISIT LOCKED DATE TIME: PHYSICIAN: RACHNA HUITRON RESOURCE: RACHNA HUITRON REASON FOR APPOINTMENT 1. NECK/LBP/INGUINAL PAIN HISTORY OF PRESENT ILLNESS HISTORY OF PRESENT ILLNESS: PAIN THE PATIENT DESCRIBES THE PAIN... 54-YEAR-OLD MALE IN FOR CHRONIC PAIN FOLLOW-UP. HE HAD HIS CONSULT WITH ALICE MONTELONGO WHO SUGGESTED PATIENT CONTINUE WITH PROCEDURES AT THIS TIME AND FOLLOW-UP WITH HIM IN OCTOBER. PATIENT DOES ADMIT AT SOME POINT HE WILL NEED SURGICAL REPAIR. HE FEELS THE MEDICATIONS ARE WORKING WELL AT THIS TIME AND DENIES MED SIDE EFFECTS. HE RATES HIS PAIN CURRENTLY AT A 6 OUT OF 10 AND DESCRIBES IT ACHING, AND BURNING. FALL RISK SCREENING: SCREENING :NO FALLS REPORTED IN THE LAST YEAR CURRENT MEDICATIONS TAKING METOPROLOL SUCCINATE 100 MG TABLET EXTENDED RELEASE 1 CAPSULE ORALLY ONCE A DAY TAKING PROPECIA 1 MG TABLET 1 TABLET ORALLY ONCE A DAY TAKING XIIDRA 5 % SOLUTION 1 DROP INTO AFFECTED EYE OPHTHALMIC TWICE A DAY TAKING ROGAINE 2 % SOLUTION 1 ML TO AFFECTED AREA EXTERNALLY TWICE A DAY TAKING GABAPENTIN 100 MG CAPSULE ORALLY 3 TIMES A DAY TAKING TRAMADOL HCL 50 MG TABLET 1 TABLET NEEDED ORALLY Q8H PRN MDD3 MEDICATION LIST REVIEWED AND RECONCILED WITH THE PATIENT PAST MEDICAL HISTORY HYPERTENSION HISTORY OF KIDNEY STONES HERNIATED DDD LUMBAR L5-S1 NECK PAIN ILIOINGUINAL HERNIA REPAIR TWICE ON EACH SIDE/ NEURALGIA CHRONIC PAIN WITH DR JOHN PELLUCID MARGINAL DEGENERATION FIBROMYALGIA PTSD DEPRESSION DISCITUS SPINAL STENOSIS ALLERGIES POISON MERT: RASH AND ITCHING - ALLERGY CYMBALTA: MENTAL DISTRESS - SIDE EFFECTS SURGICAL HISTORY AMPUTATION LEFT PINKY FINGER 05/1970 LEFT INGUINIAL HERNIA REPAIR 03/1996 RIGHT INGUINIAL HERNIA REPAIR 04/2002 RIGHT SHOULDER ROTATOR CUFF REPAIR AND CLAVICULAR RESECTION AND REPAIR OF TEAR 04/2009 AND 04/2010 BILATERAL INGUINIAL REPAIR 2011 LEFT PLICA REMOVAL 2004 AND 2010 LEFT WRIST CARPUL TUNNEL REPAIR 2012 LUMBAR DISCECTOMY L5-S1 2013 FAMILY HISTORY FATHER: ALIVE, DIAGNOSED WITH OTHER MALIGNANT NEOPLASM OF UNSPECIFIED SITE MOTHER: ALIVE, OTHER MALIGNANT NEOPLASM OF UNSPECIFIED SITE PATERNAL GRAND FATHER: RHEUMATOID / PSORIATIC ARTHRITIS PATERNAL GRAND MOTHER: RHEUMATOID SISTER: LUPUS, DIAGNOSED WITH OTHER MALIGNANT NEOPLASM OF UNSPECIFIED SITE 1 SISTER(S) - HEALTHY. NEICE- LUPUS\\\\N\\\\NPATERNAL AUNTS- RHEUMATOID. SOCIAL HISTORY GENERAL: TOBACCO USE ARE YOU A:NONSMOKER HIV / HEP-C SCREENING HIV TEST OFFERED TO PATIENT:NO HEP-C TEST OFFERED TO PATIENT:NO OTHERS AT HOME: FATHER AND GIRLFRIEND. EDUCATION LEVEL OF EDUCATION:FINISHED COLLEGE DIET: REGULAR. LANGUAGE LANGUAGES SPOKEN:KYRGYZ RECREATIONAL DRUG USE DRUG USE?NO EXERCISE: TREADMILL AND PADDLEBOARD. LEARNING BARRIERS / SPECIAL NEEDS CHANGE FROM LAST VISIT?NO BARRIERS TO LEARNING?NO HEARING IMPAIRED?NO VISION IMPAIRED?YES COGNITIVELY IMPAIRED?NO :CORRECTIVE LENSES READINESS TO LEARN?YES LEARNING PREFERENCES?NO LEARNING CAPABILITIES PRESENT?YES EMOTIONAL BARRIERS?NO SPECIAL DEVICES?NO RESEARCH AND DEVELOPMENT SPECIALIST NEEDED?NO PAIN CLINIC PFS, CLERGY, PUBLIC HEALTH REFERRALS PFS REFERRAL NEEDED?NO CLERGY REFERRAL NEEDED?NO PUBLIC HEALTH REFERRAL NEEDED?NO WAS THE PROVIDER NOTIFIED OF ANY PERTINENT INFO?NO HAS THE PATIENT BEEN EDUCATED REGARDING HIS/HER PLAN OF CARE?YES HAS THE PATIENT BEEN EDUCATED REGARDING PAIN, THE RISK FOR PAIN, THE IMPORTANCE OF EFFECTIVE PAIN MANAGEMENT, AND THE PAIN ASSESSMENT PROCESS?YES LATEX QUESTIONNAIRE LATEX ALLERGY : HAVE YOU EVER DEVELOPED ANY TYPE OF REACTION AFTER HANDLING LATEX PRODUCTS SUCH RUBBER GLOVES, CONDOMS, DIAPHRAGMS, BALLOONS, SOCKS, OR UNDERWEAR?NO LATEX ALLERGY : HAVE YOU EVER DEVELOPED ANY TYPE OF REACTION DURING OR AFTER DENTAL APPOINTMENT, VAGINAL/RECTAL EXAMINATION, SURGICAL PROCEDURE, OR ANY OTHER EXPOSURE?NO DATE ASKED : 01/19/2019 LATEX RISK : HAVE YOU EVER HAD ANY DIFFICULTY BREATHING OR HIVES AFTER EATING OR HANDLING ANY FRUITS, OR VEGETABLES; SUCH KIWI, BANANAS, STONE FRUITS, OR CHESTNUTSNO LATEX RISK : DO YOU HAVE A PREVIOUS PERSONAL HISTORY OF MORE THAN NINE SURGERIES, SPINA BIFIDA, OR REPEATED CATHERIZATIONS? YES - PLEASE INDICATE : > 9 SURGERIES LATEX RISK : ARE YOU FREQUENTLY EXPOSED TO LATEX PRODUCTS IN YOUR OCCUPATION?NO CAFFEINE CAFFEINE USE?YES COFFEE HOW OFTEN AND HOW MUCH? 2 CUPS PER DAY ADVANCE DIRECTIVE ADVANCE DIRECTIVE DISCUSSED WITH PATIENT:YES PT DOES NOT HAVE ANY ADVANCED DIRECTIVES AND HE DECLINES INFORMATION ON HCP AT THIS. [facility] [id number] ORTHODOXY MARITAL STATUS: SINGLE. 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 REVIEWED WITH PT 07/21/18 1500 LASREVIEWED WITH PT 01/19/19 1316 BV. HOSPITALIZATION/MAJOR DIAGNOSTIC PROCEDURE SEE ABOVE DCS TRIAL REVIEW OF SYSTEMS REVIEWED BY: PROVIDER: BRANDON LOUISE . CONSTITUTIONAL: ANY CHANGE IN YOUR MEDICAL CONDITION? NO . CHILLS NO . FEVER NO . INFECTION: DO YOU HAVE NEW INFECTIONS? NO . DO YOU HAVE HISTORY OF MRSA? NO . MUSCULOSKELETAL: ANY NEW PATTERNS OF PAIN OR NUMBNESS? NO . GASTROENTEROLOGY: ANY NEW CHANGE IN BOWEL CONTROL? NO . GENITOURINARY: ANY NEW CHANGE IN BLADDER CONTROL? NO . IS THERE A CHANCE YOU COULD BE ? NO . HEMATOLOGY/LYMPH: DO YOU TAKE ANY BLOOD THINNERS? (FOR EXAMPLE- COUMADIN, PLAVIX, AGGRENOX, PLATEL, PRADAXA, OR XARELTO) NO . WHEN WAS YOUR LAST DOSE? DATE: TIME: . NEUROLOGY: HAVE YOU FALLEN IN THE PAST 12 MONTHS? YES . ANY NEW EXTREMITY NUMBNESS OR WEAKNESS? NO . CARDIOLOGY: DO YOU HAVE A PACEMAKER OR DEFIBRILLATOR? NO . RESPIRATORY: HAVE YOU BEEN SICK IN THE PAST WEEK? NO . FEVER NO . FLU LIKE SYMPTOMS? NO . COUGH NO . INTEGUMENTARY: DO YOU HAVE ANY RASHES OR OPEN SORES? NO . ALLERGIC/IMMUNO: ARE YOU ALLERGIC TO IV DYE? NO . ANY NEW ALLERGIES? NO . PSYCHIATRIC: DO YOU HAVE THOUGHTS OF HURTING YOURSELF OR SOMEONE ELSE? NO . ARE YOU ABUSED, NEGLECTED, OR IN AN UNSAFE ENVIRONMENT? NO . ENDOCRINOLOGY: ARE YOU DIABETIC? NO . OTHER: DO YOU NEED ANY PRESCRIPTIONS? NO . IF YES, PLEASE LIST: ____ . ANY NEW PROBLEMS WITH YOUR MEDICATIONS? NO . WHEN DID YOU LAST EAT? ____ . WHEN DID YOU LAST DRINK? ____ . WHAT DID YOU LAST DRINK? ____ . NAME OF PERSON DRIVING YOU HOME? ____ . DO YOU HAVE ANY OTHER QUESTIONS OR CONCERNS NO . VITAL SIGNS WT 236.0 LBS, HT 70", BMI 33.86 INDEX, BP 143/92 MM HG, HR 70 /MIN, RR 18 /MIN, TEMP 97.7 F, OXYGEN SAT % 96%, NA INITIALS AW 1255, REVIEWED BY: UNRIA. EXAMINATION GENERAL EXAMINATION: GENERALNO ACUTE DISTRESS, WELL NOURISHED AND HYDRATED. PSYCHAPPROPRIATE MOOD AND AFFECT . NECK:DENIES POINT TENDERNESS ALONG THE CERVICAL SPINE, DOES ENDORSE INCREASED PAIN WITH FACET LOADING OF THE CERVICAL SPINE, SURROUNDING SKIN SHOWS NO ERYTHEMA, ECCHYMOSIS, INCREASED WARMTH, AND/OR SKIN ERUPTIONS NOTED. . LUNGS:CLEAR TO AUSCULTATION BILATERALLY, NO WHEEZES, RHONCHI, RALES. HEART:NO MURMURS, REGULAR RATE AND RHYTHM. MUSCULOSKELETAL:EQUAL STRENGTH OF THE UPPER EXTREMITIES BILATERALLY . ASSESSMENTS CERVICAL DISC DISORDER WITH RADICULOPATHY - M50.10 (PRIMARY) TREATMENT CERVICAL DISC DISORDER WITH RADICULOPATHY NOTES: LORENZO C5-C6 C6-C7. CLINICAL NOTES: 54-YEAR-OLD MALE IN FOR CHRONIC PAIN FOLLOW-UP. GIVEN PRESENTING SYMPTOMS AND RESULTS OF PHYSICAL OF EXAMINATION RECOMMENDED LORENZO C5-C6 C6-7 WITH POST PROCEDURAL FOLLOW-UP. PATIENT HAS EXPRESSED UNDERSTANDING OF AND WAS IN AGREEMENT WITH TREATMENT PLAN. GIVEN TIME TO ASK QUESTIONS AND EXPRESS CONCERNS., ISTOP REGISTRY REVIEWED AND DEMONSTRATES COMPLLIANCE. (REF # [id number] ) BRINGS IN MEDICATIONS WHICH IS APPROPRIATE FOR WHAT WAS DISPENSED. RECENT URINE TOXICOLOGY REVIEWED. NO UNAUTHORIZED MEDICATIONS. NO ILLICIT SUBSTANCES AND PRESCRIBED MEDICATIONS WERE PRESENT. PROCEDURE CODES FA211 ESTABILISHED PATIENT [facility] FACILITY CHARGE DISPOSITION & COMMUNICATION FOLLOW UP POSTPROCEDURE (REASON: LORENZO C5-C6 C6-C7) ELECTRONICALLY SIGNED BY BOGDAN PRADHAN ON 07/30/2019 AT 08:58 AM EDT DISCLAIMER : THIS IS A VISIT SUMMARY EXTRACTED FROM THE [employer] CHART. IT IS NOT A COPY OF THE [employer] PROGRESS NOTE. LYNDSAY
== END ==
LOC: M PAIN 13:00
PROVIDERS: ATTEND Family Medicine
DX: M50.10 Cervical disc disorder with radiculopathy, unspecified cervical region (principal); G89.29 Other chronic pain; I10 Essential (primary) hypertension; M79.7 Fibromyalgia; Z86.59 Personal history of other mental and behavioral disorders; Z88.8 Allergy status to other drugs, medicaments and biological substances; Z79.899 Other long term (current) drug therapy

== ENCOUNTER → 2019-08-17 | Outpatient (REF) | payer OTHER, MEDICAID ==
[2019-08-17 12:53] LABS: BASO % 0.5 % (0.0-1.0); EOS # 0.1 10^3/uL (0.0-0.5); EOS % 1.6 % (0.0-3.0); HEMATOCRIT 44.5 % (42.0-52.0); HEMOGLOBIN 15.2 g/dl (13.5-17.5); LYMPH # 2.5 10^3/uL (1.5-5.0); LYMPH % 32.5 % (24.0-44.0); MEAN CORPUSCULAR HGB CONC 34.2 g/dl (32.0-36.5); MEAN CORPUSCULAR VOLUME 93.7 fl (80.0-96.0); MONO # 0.8 10^3/uL (0.0-0.8); MONO % 9.9 % (0.0-5.0); NEUTROPHILS # 4.2 10^3/uL (1.5-8.5); NEUTROPHILS % 55.1 % (36.0-66.0); PLATELET COUNT, AUTOMATED 276 10^3/uL (150-450); RED BLOOD COUNT 4.75 10^6/uL (4.30-6.10); WHITE BLOOD COUNT 7.6 10^3/uL (4.0-10.0)
[2019-08-17 13:18] LABS: ALBUMIN 3.8 GM/DL (3.2-5.2); ALT/SGPT 31 U/L (12-78); BILIRUBIN,TOTAL 0.6 MG/DL (0.2-1.0); BLOOD UREA NITROGEN 14 MG/DL (7-18); CALCIUM LEVEL 8.4 MG/DL (8.5-10.1); CARBON DIOXIDE LEVEL 29 MEQ/L (21-32); CHLORIDE LEVEL 105 MEQ/L (98-107); CHOLESTEROL LEVEL 166 MG/DL (<200); CHOLESTEROL RISK RATIO 3.531 (<5); CREATININE FOR GFR 0.98 MG/DL (0.70-1.30); GLOMERULAR FILTRATION RATE > 60.0 (>56); GLUCOSE, FASTING 100 MG/DL (70-100); HDL CHOLESTEROL 47 MG/DL (>40); LDL CHOLESTEROL 104 MG/DL (<100); NON-HDL-C 119 MG/DL; POTASSIUM SERUM 4.3 MEQ/L (3.5-5.1); SODIUM LEVEL 140 MEQ/L (136-145); TESTOSTERONE 326 NG/DL (241-827); TOTAL PROTEIN 6.7 GM/DL (6.4-8.2); TRIGLYCERIDES LEVEL 76 MG/DL (<150)
[2019-08-17 14:11] LABS: HEMOGLOBIN A1c 5.4 %
== END ==
LOC: M LAB REF 12:35
PROVIDERS: ATTEND Nurse Practitioner Family
DX: Z00.01 Encounter for general adult medical examination with abnormal findings (principal); R68.82 Decreased libido

== ENCOUNTER → 2019-09-27 | Outpatient (CLI) | payer OTHER ==
[~2019-09-27] MED LIST changes: +ISOVUE-M 300 61% 15ML VIAL (Q9967) As Ordered ONE; +LIDOCAINE 1% SDV INJ 30 ML VIAL As Ordered ONE; +diazePAM 5 MG TAB As Ordered ONE; +methylPREDNISolone SUSP 40 MG/ML (DEPO-medrol) VIAL (J1030) As Ordered ONE; +oxyCODONE 5MG TAB As Ordered ONE
--- NOTE | 2019-09-27 11:14 | REP ---
Three fluoroscopic images: 09/27/2019. Indication: Fluoroscopy requested for procedural/operative guidance. Findings: Three spot fluoroscopic images of the cervicothoracic spine were provided for procedural/operative guidance. Please see procedure/operative report for details. Impression: Imaging provided for procedural/operative guidance. Electronically Signed by Antony Ferraro DO 09/27/2019 11:05 A
--- NOTE | 2019-10-08 | ECWPNPC ---
PATIENT NAME: CORY JEFFERY : 1965 GENDER: MALE VISIT DATE: 09/27/2019 DISCHARGE DATE: 09/27/19 1115 VISIT LOCKED DATE TIME: PHYSICIAN: LISY JOHN MD RESOURCE: LISY JOHN MD REASON FOR APPOINTMENT 1. LORENZO C7-T1 HISTORY OF PRESENT ILLNESS HISTORY OF PRESENT ILLNESS: PAIN THE PATIENT DESCRIBES THE PAIN... FALL RISK SCREENING: SCREENING :NO FALLS REPORTED IN THE LAST YEAR CURRENT MEDICATIONS TAKING METOPROLOL SUCCINATE 100 MG TABLET EXTENDED RELEASE 1 CAPSULE ORALLY ONCE A DAY, NOTES: 09/27/19544 TAKING PROPECIA 1 MG TABLET 1 TABLET ORALLY ONCE A DAY, NOTES: 09/27/19 TAKING XIIDRA 5 % SOLUTION 1 DROP INTO AFFECTED EYE OPHTHALMIC TWICE A DAY, NOTES: 09/27/19544 TAKING ROGAINE 2 % SOLUTION 1 ML TO AFFECTED AREA EXTERNALLY TWICE A DAY, NOTES: 09/27/19544 TAKING GABAPENTIN 100 MG CAPSULE ORALLY 3 TIMES A DAY, NOTES: 544 TAKING TRAMADOL HCL 50 MG TABLET 1 TABLET NEEDED ORALLY Q8H PRN MDD3, NOTES: 09/27/19544 MEDICATION LIST REVIEWED AND RECONCILED WITH THE PATIENT PAST MEDICAL HISTORY HYPERTENSION HISTORY OF KIDNEY STONES HERNIATED DDD LUMBAR L5-S1 NECK PAIN ILIOINGUINAL HERNIA REPAIR TWICE ON EACH SIDE/ NEURALGIA CHRONIC PAIN WITH DR JOHN PELLUCID MARGINAL DEGENERATION FIBROMYALGIA PTSD DEPRESSION DISCITUS SPINAL STENOSIS ALLERGIES POISON MERT: RASH AND ITCHING - ALLERGY CYMBALTA: MENTAL DISTRESS - SIDE EFFECTS SURGICAL HISTORY AMPUTATION LEFT PINKY FINGER 05/1970 LEFT INGUINIAL HERNIA REPAIR 03/1996 RIGHT INGUINIAL HERNIA REPAIR 04/2002 RIGHT SHOULDER ROTATOR CUFF REPAIR AND CLAVICULAR RESECTION AND REPAIR OF TEAR 04/2009 AND 04/2010 BILATERAL INGUINIAL REPAIR 2012 LEFT PLICA REMOVAL 2004 AND 2010 LEFT WRIST CARPUL TUNNEL REPAIR 2012 LUMBAR DISCECTOMY L5-S1 2013 FAMILY HISTORY FATHER: ALIVE, DIAGNOSED WITH OTHER MALIGNANT NEOPLASM OF UNSPECIFIED SITE MOTHER: ALIVE, OTHER MALIGNANT NEOPLASM OF UNSPECIFIED SITE PATERNAL GRAND FATHER: RHEUMATOID / PSORIATIC ARTHRITIS PATERNAL GRAND MOTHER: RHEUMATOID SISTER: LUPUS, DIAGNOSED WITH OTHER MALIGNANT NEOPLASM OF UNSPECIFIED SITE 1 SISTER(S) - HEALTHY. NEICE- LUPUS\\\\N\\\\NPATERNAL AUNTS- RHEUMATOID. SOCIAL HISTORY GENERAL: TOBACCO USE ARE YOU A:NONSMOKER HIV / HEP-C SCREENING HIV TEST OFFERED TO PATIENT:NO HEP-C TEST OFFERED TO PATIENT:NO OTHERS AT HOME: FATHER AND GIRLFRIEND. EDUCATION LEVEL OF EDUCATION:FINISHED COLLEGE DIET: REGULAR. LANGUAGE LANGUAGES SPOKEN:BRITISH RECREATIONAL DRUG USE DRUG USE?NO EXERCISE: TREADMILL AND PADDLEBOARD. LEARNING BARRIERS / SPECIAL NEEDS CHANGE FROM LAST VISIT?NO BARRIERS TO LEARNING?NO HEARING IMPAIRED?NO TINNITIS VISION IMPAIRED?YES :CORRECTIVE LENSES COGNITIVELY IMPAIRED?NO READINESS TO LEARN?YES LEARNING PREFERENCES?NO LEARNING CAPABILITIES PRESENT?YES EMOTIONAL BARRIERS?NO SPECIAL DEVICES?NO GROUP CAPTAIN NEEDED?NO PAIN CLINIC PFS, CLERGY, PUBLIC HEALTH REFERRALS PFS REFERRAL NEEDED?NO CLERGY REFERRAL NEEDED?NO PUBLIC HEALTH REFERRAL NEEDED?NO WAS THE PROVIDER NOTIFIED OF ANY PERTINENT INFO?NO HAS THE PATIENT BEEN EDUCATED REGARDING HIS/HER PLAN OF CARE?YES HAS THE PATIENT BEEN EDUCATED REGARDING PAIN, THE RISK FOR PAIN, THE IMPORTANCE OF EFFECTIVE PAIN MANAGEMENT, AND THE PAIN ASSESSMENT PROCESS?YES LATEX QUESTIONNAIRE LATEX ALLERGY : HAVE YOU EVER DEVELOPED ANY TYPE OF REACTION AFTER HANDLING LATEX PRODUCTS SUCH RUBBER GLOVES, CONDOMS, DIAPHRAGMS, BALLOONS, SOCKS, OR UNDERWEAR?NO LATEX ALLERGY : HAVE YOU EVER DEVELOPED ANY TYPE OF REACTION DURING OR AFTER DENTAL APPOINTMENT, VAGINAL/RECTAL EXAMINATION, SURGICAL PROCEDURE, OR ANY OTHER EXPOSURE?NO LATEX RISK : HAVE YOU EVER HAD ANY DIFFICULTY BREATHING OR HIVES AFTER EATING OR HANDLING ANY FRUITS, OR VEGETABLES; SUCH KIWI, BANANAS, STONE FRUITS, OR CHESTNUTSNO LATEX RISK : DO YOU HAVE A PREVIOUS PERSONAL HISTORY OF MORE THAN NINE SURGERIES, SPINA BIFIDA, OR REPEATED CATHERIZATIONS? YES - PLEASE INDICATE : > 9 SURGERIES LATEX RISK : ARE YOU FREQUENTLY EXPOSED TO LATEX PRODUCTS IN YOUR OCCUPATION?NO DATE ASKED : 01/19/2019 CAFFEINE CAFFEINE USE?YES COFFEE HOW OFTEN AND HOW MUCH? 2 CUPS PER DAY ADVANCE DIRECTIVE ADVANCE DIRECTIVE DISCUSSED WITH PATIENT:YES 09/19/19 PT DOES NOT HAVE ANY ADVANCED DIRECTIVES AND HE DECLINES INFORMATION ON HCP AT THIS. [employer] [id number] SABIANIST MARITAL STATUS: SINGLE. 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 REVIEWED WITH PT 07/21/18 1500 LASREVIEWED WITH PT 01/19/19 1316 BVPRE-SCREENING PHONE CALL COMPLETED 09/19/19 1106 JS. HOSPITALIZATION/MAJOR DIAGNOSTIC PROCEDURE SEE ABOVE - SURGERIES REVIEW OF SYSTEMS REVIEWED BY: PROVIDER: . CONSTITUTIONAL: ANY CHANGE IN YOUR MEDICAL CONDITION? NO . CHILLS NO . FEVER NO . INFECTION: DO YOU HAVE NEW INFECTIONS? NO . DO YOU HAVE HISTORY OF MRSA? NO . MUSCULOSKELETAL: ANY NEW PATTERNS OF PAIN OR NUMBNESS? NO . GASTROENTEROLOGY: ANY NEW CHANGE IN BOWEL CONTROL? NO . GENITOURINARY: ANY NEW CHANGE IN BLADDER CONTROL? NO . IS THERE A CHANCE YOU COULD BE ? NO . HEMATOLOGY/LYMPH: DO YOU TAKE ANY BLOOD THINNERS? (FOR EXAMPLE- COUMADIN, PLAVIX, AGGRENOX, PLATEL, PRADAXA, OR XARELTO) NO . WHEN WAS YOUR LAST DOSE? DATE: TIME: . NEUROLOGY: HAVE YOU FALLEN IN THE PAST 12 MONTHS? YES, PRIOR TO LAST VISIT . ANY NEW EXTREMITY NUMBNESS OR WEAKNESS? NO . CARDIOLOGY: DO YOU HAVE A PACEMAKER OR DEFIBRILLATOR? NO . RESPIRATORY: HAVE YOU BEEN SICK IN THE PAST WEEK? NO . FEVER NO . FLU LIKE SYMPTOMS? NO . COUGH NO . INTEGUMENTARY: DO YOU HAVE ANY RASHES OR OPEN SORES? NO . ALLERGIC/IMMUNO: ARE YOU ALLERGIC TO IV DYE? NO . ANY NEW ALLERGIES? NO . PSYCHIATRIC: DO YOU HAVE THOUGHTS OF HURTING YOURSELF OR SOMEONE ELSE? NO . ARE YOU ABUSED, NEGLECTED, OR IN AN UNSAFE ENVIRONMENT? NO . ENDOCRINOLOGY: ARE YOU DIABETIC? NO . OTHER: DO YOU NEED ANY PRESCRIPTIONS? NO . IF YES, PLEASE LIST: ____ . ANY NEW PROBLEMS WITH YOUR MEDICATIONS? NO . WHEN DID YOU LAST EAT? 09/26/19 1900 . WHEN DID YOU LAST DRINK? 09/26/19 2300 . WHAT DID YOU LAST DRINK? WATER . NAME OF PERSON DRIVING YOU HOME? MAYURI . DO YOU HAVE ANY OTHER QUESTIONS OR CONCERNS NO . VITAL SIGNS WT 236.2 LBS, HT 70", BMI 33.89 INDEX, BP 169/92 MM HG, HR 73 /MIN, RR 18 /MIN, TEMP 97.4 F, OXYGEN SAT % 96%, NA INITIALS NM 09:05, REVIEWED BY: EM. ASSESSMENTS CERVICAL DISC DISORDER WITH RADICULOPATHY - M50.10 (PRIMARY) TREATMENT CERVICAL DISC DISORDER WITH RADICULOPATHY [facility] FLUORO GUIDE SPINE INJECTION (PAIN)[id number] PROCEDURES PN CERVICAL EPIDURAL PRE PROCEDURE DIAGNOSIS CERVICAL DISC DISORDER WITH RADICULOPATHY POST PROCEDURE DIAGNOSIS CERVICAL DISC DISORDER WITH RADICULOPATHY PROCEDURE CERVICAL EPIDURAL STEROID INJECTION UNDER FLUOROSCOPIC GUIDANCE SURGEON DR. LISY JOHN BUCKLER AND LACER NONE ANESTHESIA LOCAL PRE PROCEDURE NOTE THE PATIENT HAS A HISTORY OF CHRONIC CERVICAL PAIN. I EVALUATED THE PATIENT AND REVIEWED THE CHART. I WENT OVER THE RISKS, ALTERNATIVES, AND BENEFITS ASSOCIATED WITH THIS PROCEDURE. THE PATIENT WOULD LIKE TO PROCEED AND GIVES CONSENT TO PERFORM THE PROCEDURE. THE PATIENT DENIES UNEXPLAINABLE WEIGHT LOSS, FEVER, CHILLS, OR NEW CHANGES IN URINARY OR BOWEL CONTROL DESCRIPTION OF PROCEDURE THE PATIENT WAS BROUGHT TO THE PROCEDURE ROOM AND PLACED IN THE PRONE POSITION. THE CERVICOTHORACIC AREA WAS CLEANED WITH BETADINE SOLUTION AND DRAPED ASEPTICALLY. THE PROCEDURE WAS DONE UNDER STERILE CONDITIONS. I CHECKED LATERALITY AND THE LEVEL WHERE THE PROCEDURE WAS GOING TO BE PERFORMED WITH THE PATIENT AND THE SUPPORTING STAFF AT THE MOMENT OF THE TIME OUT IN THE PROCEDURE ROOM. UNDER FLUOROSCOPIC GUIDANCE, THE TARGET WAS SELECTED AT THE INTERLAMINAR LEVEL OF C7-T1. LIDOCAINE WAS USED TO NUMB THE SKIN AND THE SUBCUTANEOUS TISSUE BELOW IT. EPIDURAL TUOHY NEEDLE 17-GAUGE WAS ADVANCED UNDER FLUOROSCOPIC GUIDANCE AND FOLLOWING PATIENT FEEDBACK UNTIL THE EPIDURAL SPACE WAS REACHED 6 CM DEEP INTO THE SKIN BY THE LOSS OF RESISTANCE TECHNIQUE. ISOVUE M DYE 30%, 0.25 ML, WAS INJECTED SHOWING ADEQUATE SPREAD OF THE DYE. THEN, A SOLUTION OF 3 ML OF NORMAL SALINE WITH DEPO-MEDROL 60 MG WAS INJECTED SLOWLY FOLLOWING PATIENT FEEDBACK. THERE WAS NO EVIDENCE OF BLOOD, PARESTHESIA OR CEREBROSPINAL FLUID DURING THE PROCEDURE. THE PATIENT WAS SENT TO THE RECOVERY ROOM. THE PATIENT WAS MOVING THE EXTREMITIES AND DOING WELL. THERE WAS NO COMPLICATION DURING THE PROCEDURE. FLUOROSCOPY TIME WAS 12 SECONDS POST PROCEDURE NOTE I AM LOOKING FOR LONG LASTING PAIN RELIEF WITH THIS INJECTION. THE PATIENT WILL BE SEEN IN A FOLLOW UP IN THE NEXT FEW WEEKS. INSTRUCTIONS WERE GIVEN, QUESTIONS WERE ANSWERED, AND THE PATIENT EXPRESSED UNDERSTANDING AND AGREES WITH THE PLAN. I, RADHA MEJIAS, DOCUMENTED THE ABOVE INFORMATION ACTING A SCRIBE FOR DR. JOHN. I HAVE REVIEWED THE ABOVE DOCUMENT, WRITTEN BY RADHA TREJO AND I VERIFY THAT IT IS ACCURATE. PROCEDURE CODES 92267 CERVICAL/THORACIC W/ IMAGING 6045F RADXPS IN END [id number] PXD DISPOSITION & COMMUNICATION FOLLOW UP 3 WEEKS ELECTRONICALLY SIGNED BY LISY JOHN MD, ON 10/07/2019 AT 12:51 PM EST DISCLAIMER : THIS IS A VISIT SUMMARY EXTRACTED FROM THE [email or web address] CHART. IT IS NOT A COPY OF THE [employer] PROGRESS NOTE. MTDD
== END ==
LOC: M PAIN 09:00
PROVIDERS: ATTEND Anesthesiology
DX: M50.10 Cervical disc disorder with radiculopathy, unspecified cervical region (principal)
CPT/HCPCS: 62321; J1030; Q9967

== ENCOUNTER → 2019-10-24 | Outpatient (CLI) | payer OTHER ==
[~2019-10-24] MED LIST changes: -ISOVUE-M 300 61% 15ML VIAL (Q9967) As Ordered ONE; -LIDOCAINE 1% SDV INJ 30 ML VIAL As Ordered ONE; -diazePAM 5 MG TAB As Ordered ONE; -methylPREDNISolone SUSP 40 MG/ML (DEPO-medrol) VIAL (J1030) As Ordered ONE; -oxyCODONE 5MG TAB As Ordered ONE
--- NOTE | 2019-10-26 04:34 | ECWPNPC ---
PATIENT NAME: CORY JEFFERY : 1965 GENDER: MALE VISIT DATE: 10/24/2019 DISCHARGE DATE: 10/24/19 1415 VISIT LOCKED DATE TIME: PHYSICIAN: RACHNA HUITRON RESOURCE: RACHNA HUITRON REASON FOR APPOINTMENT 1. POST PROC HISTORY OF PRESENT ILLNESS PAIN SCREENING: PATIENT HAS A COMPLAINT OF ACUTE OR CHRONIC PAIN :YES 54-YEAR-OLD MALE IN FOR POST CERVICAL EPIDURAL FOLLOW-UP. PATIENT RATES HIS PAIN PREPROCEDURE AT A 5-6 OUT OF 10 AND POST PROCEDURE AT A 4/10. HE DOES ADMIT THAT THE LORENZO RELIEVED HIS RADICULAR SYMPTOMS. HE RATES HIS PAIN CURRENTLY AT A 4 OUT OF 10 AND DESCRIBES IT ACHING, AND BURNING. FALL RISK SCREENING: SCREENING :NO FALLS REPORTED IN THE LAST YEAR CURRENT MEDICATIONS TAKING METOPROLOL SUCCINATE 100 MG TABLET EXTENDED RELEASE 1 CAPSULE ORALLY ONCE A DAY TAKING PROPECIA 1 MG TABLET 1 TABLET ORALLY ONCE A DAY TAKING XIIDRA 5 % SOLUTION 1 DROP INTO AFFECTED EYE OPHTHALMIC TWICE A DAY TAKING ROGAINE 2 % SOLUTION 1 ML TO AFFECTED AREA EXTERNALLY TWICE A DAY TAKING GABAPENTIN 100 MG CAPSULE ORALLY 3 TIMES A DAY TAKING TRAMADOL HCL 50 MG TABLET 1 TABLET NEEDED ORALLY Q8H PRN MDD3 TAKING MUCINEX 600 MG TABLET EXTENDED RELEASE 1 TABLET NEEDED ORALLY EVERY 12 HRS MEDICATION LIST REVIEWED AND RECONCILED WITH THE PATIENT PAST MEDICAL HISTORY HYPERTENSION HISTORY OF KIDNEY STONES HERNIATED DDD LUMBAR L5-S1 NECK PAIN ILIOINGUINAL HERNIA REPAIR TWICE ON EACH SIDE/ NEURALGIA CHRONIC PAIN WITH DR JOHN PELLUCID MARGINAL DEGENERATION FIBROMYALGIA PTSD DEPRESSION DISCITUS SPINAL STENOSIS ALLERGIES POISON MERT: RASH AND ITCHING - ALLERGY CYMBALTA: MENTAL DISTRESS - SIDE EFFECTS SURGICAL HISTORY AMPUTATION LEFT PINKY FINGER 05/1970 LEFT INGUINIAL HERNIA REPAIR 03/1996 RIGHT INGUINIAL HERNIA REPAIR 04/2002 RIGHT SHOULDER ROTATOR CUFF REPAIR AND CLAVICULAR RESECTION AND REPAIR OF TEAR 04/2009 AND 04/2010 BILATERAL INGUINIAL REPAIR 2012 LEFT PLICA REMOVAL 2004 AND 2010 LEFT WRIST CARPUL TUNNEL REPAIR 2012 LUMBAR DISCECTOMY L5-S1 2013 FAMILY HISTORY FATHER: , DIAGNOSED WITH OTHER MALIGNANT NEOPLASM OF UNSPECIFIED SITE MOTHER: ALIVE, OTHER MALIGNANT NEOPLASM OF UNSPECIFIED SITE PATERNAL GRAND FATHER: RHEUMATOID / PSORIATIC ARTHRITIS PATERNAL GRAND MOTHER: RHEUMATOID SISTER: LUPUS, DIAGNOSED WITH OTHER MALIGNANT NEOPLASM OF UNSPECIFIED SITE 1 SISTER(S) - HEALTHY. NEICE- LUPUS\\\\N\\\\NPATERNAL AUNTS- RHEUMATOID. SOCIAL HISTORY GENERAL: TOBACCO USE ARE YOU A:NONSMOKER HIV / HEP-C SCREENING HIV TEST OFFERED TO PATIENT:NO HEP-C TEST OFFERED TO PATIENT:NO OTHERS AT HOME: FATHER AND GIRLFRIEND. EDUCATION LEVEL OF EDUCATION:FINISHED COLLEGE DIET: REGULAR. LANGUAGE LANGUAGES SPOKEN:[place] ISLANDER RECREATIONAL DRUG USE DRUG USE?NO EXERCISE: TREADMILL AND PADDLEBOARD. LEARNING BARRIERS / SPECIAL NEEDS CHANGE FROM LAST VISIT?NO BARRIERS TO LEARNING?NO HEARING IMPAIRED?NO TINNITIS VISION IMPAIRED?YES COGNITIVELY IMPAIRED?NO :CORRECTIVE LENSES READINESS TO LEARN?YES LEARNING PREFERENCES?NO LEARNING CAPABILITIES PRESENT?YES EMOTIONAL BARRIERS?NO SPECIAL DEVICES?NO WORK ORDER CLERK NEEDED?NO PAIN CLINIC PFS, CLERGY, PUBLIC HEALTH REFERRALS PFS REFERRAL NEEDED?NO CLERGY REFERRAL NEEDED?NO PUBLIC HEALTH REFERRAL NEEDED?NO WAS THE PROVIDER NOTIFIED OF ANY PERTINENT INFO?NO HAS THE PATIENT BEEN EDUCATED REGARDING HIS/HER PLAN OF CARE?YES HAS THE PATIENT BEEN EDUCATED REGARDING PAIN, THE RISK FOR PAIN, THE IMPORTANCE OF EFFECTIVE PAIN MANAGEMENT, AND THE PAIN ASSESSMENT PROCESS?YES LATEX QUESTIONNAIRE LATEX ALLERGY : HAVE YOU EVER DEVELOPED ANY TYPE OF REACTION AFTER HANDLING LATEX PRODUCTS SUCH RUBBER GLOVES, CONDOMS, DIAPHRAGMS, BALLOONS, SOCKS, OR UNDERWEAR?NO LATEX ALLERGY : HAVE YOU EVER DEVELOPED ANY TYPE OF REACTION DURING OR AFTER DENTAL APPOINTMENT, VAGINAL/RECTAL EXAMINATION, SURGICAL PROCEDURE, OR ANY OTHER EXPOSURE?NO LATEX RISK : HAVE YOU EVER HAD ANY DIFFICULTY BREATHING OR HIVES AFTER EATING OR HANDLING ANY FRUITS, OR VEGETABLES; SUCH KIWI, BANANAS, STONE FRUITS, OR CHESTNUTSNO LATEX RISK : DO YOU HAVE A PREVIOUS PERSONAL HISTORY OF MORE THAN NINE SURGERIES, SPINA BIFIDA, OR REPEATED CATHERIZATIONS? YES - PLEASE INDICATE : > 9 SURGERIES LATEX RISK : ARE YOU FREQUENTLY EXPOSED TO LATEX PRODUCTS IN YOUR OCCUPATION?NO DATE ASKED : 01/19/2019 CAFFEINE CAFFEINE USE?YES COFFEE HOW OFTEN AND HOW MUCH? 2 CUPS PER DAY ADVANCE DIRECTIVE ADVANCE DIRECTIVE DISCUSSED WITH PATIENT:YES 10/24/2018 PT DOES NOT HAVE ANY ADVANCED DIRECTIVES AND HE DECLINES INFORMATION ON HCP AT THIS. JS MANDAEISM [id number] PRESYBETERIAN MARITAL STATUS: SINGLE. ALCOHOL SCREENING DID YOU HAVE A DRINK CONTAINING ALCOHOL IN THE PAST YEAR?YES HOW OFTEN DID YOU HAVE A DRINK CONTAINING ALCOHOL IN THE PAST YEAR?TWO TO FOUR TIMES A MONTH (2 POINTS) HOW MANY DRINKS DID YOU HAVE ON A TYPICAL DAY WHEN YOU WERE DRINKING IN THE PAST YEAR?1 OR 2 (0 POINTS) HOW OFTEN DID YOU HAVE SIX OR MORE DRINKS ON ONE OCCASION IN THE PAST YEAR?NEVER (0 POINTS) POINTS2 INTERPRETATIONNEGATIVE OCCUPATION: [employer]. REVIEWED WITH PT 07/21/18 1500 LASREVIEWED WITH PT 01/19/19 1316 BVPRE-SCREENING PHONE CALL COMPLETED 09/19/19 1106 JSREVIEWED WITH PATIENT 10/24/2019 1348 JS. HOSPITALIZATION/MAJOR DIAGNOSTIC PROCEDURE SEE ABOVE - SURGERIES REVIEW OF SYSTEMS REVIEWED BY: PROVIDER: BRANDON LOUISE . CONSTITUTIONAL: ANY CHANGE IN YOUR MEDICAL CONDITION? NO . CHILLS NO . FEVER NO . INFECTION: DO YOU HAVE NEW INFECTIONS? YES -SOME TYPE OF RESPIRATORY INFECTION . DO YOU HAVE HISTORY OF MRSA? NO . MUSCULOSKELETAL: ANY NEW PATTERNS OF PAIN OR NUMBNESS? NO . SYTEMIC LUPUS NO . GASTROENTEROLOGY: ANY NEW CHANGE IN BOWEL CONTROL? NO . BARRETTS ESOPHAGUS NO . CIRRHOSIS NO . HEPATITIS NO . LIVER FAILURE NO . ACID REFLUX NO . UNEXPLAINED WEIGHT LOSS NO . GENITOURINARY: ANY NEW CHANGE IN BLADDER CONTROL? NO . IS THERE A CHANCE YOU COULD BE ? NO . HEMATOLOGY/LYMPH: DO YOU TAKE ANY BLOOD THINNERS? (FOR EXAMPLE- COUMADIN, PLAVIX, AGGRENOX, PLATEL, PRADAXA, OR XARELTO) NO . WHEN WAS YOUR LAST DOSE? DATE: TIME: . LOW PLATELET COUNT NO . SICKLE CELL DISEASE NO . VON WILLIEBRANDS NO . FACTOR V LEIDEN NO . THALLASEMIA NO . ANEMIA NO . EASY BRUISING NO . NEUROLOGY: HAVE YOU FALLEN IN THE PAST 12 MONTHS? YES, STATES FALL RELATED TO RIGHT DROP FOOT - HAPPENED LAST THIS PAST SUMMER, NO INJUIRES, NO ED VISIT . ANY NEW EXTREMITY NUMBNESS OR WEAKNESS? NO . HEAD INJURY NO . DEMENTIA NO . CEREBRAL PALSY NO . MULTIPLE SCLEROSIS NO . DIZZINESS NO . HEADACHE NO . STROKES NO . VERTIGO NO . CARDIOLOGY: DO YOU HAVE A PACEMAKER OR DEFIBRILLATOR? NO . ANGINA NO . HEART ATTACK NO . HEART SURGERY NO . CONGESTIVE HEART FAILURE/FLUID OVERLOAD NO . CHEST PAIN NO . HIGH BLOOD PRESSURE NO . IRREGULAR HEART BEAT NO . RESPIRATORY: HAVE YOU BEEN SICK IN THE PAST WEEK? YES, COLD . FEVER NO . FLU LIKE SYMPTOMS? NO . CPAP NO . BYPAP NO . ASTHMA NO . EMPHYSEMA NO . CHRONIC LUNG DISEASES NO . SHORTNESS OF BREATH ON EXERTION NO . COUGH YES . SNORING NO . INTEGUMENTARY: DO YOU HAVE ANY RASHES OR OPEN SORES? NO . ALLERGIC/IMMUNO: ARE YOU ALLERGIC TO IV DYE? NO . ANY NEW ALLERGIES? NO . PSYCHIATRIC: DO YOU HAVE THOUGHTS OF HURTING YOURSELF OR SOMEONE ELSE? NO . ARE YOU ABUSED, NEGLECTED, OR IN AN UNSAFE ENVIRONMENT? NO . ENDOCRINOLOGY: ARE YOU DIABETIC? NO . THYROID DISORDER NO . OTHER: DO YOU NEED ANY PRESCRIPTIONS? NO . IF YES, PLEASE LIST: ____ . ANY NEW PROBLEMS WITH YOUR MEDICATIONS? NO . WHEN DID YOU LAST EAT? ____ . WHEN DID YOU LAST DRINK? ____ . WHAT DID YOU LAST DRINK? ____ . NAME OF PERSON DRIVING YOU HOME? ____ . DO YOU HAVE ANY OTHER QUESTIONS OR CONCERNS NO . VITAL SIGNS WT 231.4 LBS, HT 70", BMI 33.20 INDEX, BP 144/86 MM HG, HR 79 /MIN, RR 18 /MIN, TEMP 98.1 F, OXYGEN SAT % 97%, SAFE IN ENV? (Y/N) YES, REVIEWED BY: MANOLO. EXAMINATION GENERAL EXAMINATION: GENERALNO ACUTE DISTRESS, WELL NOURISHED AND HYDRATED. PSYCHAPPROPRIATE MOOD AND AFFECT . LUNGS:CLEAR TO AUSCULTATION BILATERALLY, NO WHEEZES, RHONCHI, RALES. HEART:NO MURMURS, REGULAR RATE AND RHYTHM. ASSESSMENTS CERVICAL DISC DISORDER WITH RADICULOPATHY - M50.10 (PRIMARY) TREATMENT CERVICAL DISC DISORDER WITH RADICULOPATHY CLINICAL NOTES: 54-YEAR-OLD MALE IN FOR CHRONIC PAIN FOLLOW-UP. GIVEN PRESENTING SYMPTOMS AND RESULTS OF PHYSICAL EXAMINATION RECOMMENDED CONTINUATION OF CURRENT MEDICATION REGIMEN WITH FOLLOW-UP IN 3 MONTHS. PATIENT HAS EXPRESSED UNDERSTANDING OF AND WAS IN AGREEMENT WITH TREATMENT PLAN. GIVEN TIME TO ASK QUESTIONS AND EXPRESS CONCERNS., ISTOP REGISTRY REVIEWED AND DEMONSTRATES COMPLLIANCE. (REF # [id number] ) BRINGS IN MEDICATIONS WHICH IS APPROPRIATE FOR WHAT WAS DISPENSED. RECENT URINE TOXICOLOGY REVIEWED. NO UNAUTHORIZED MEDICATIONS. NO ILLICIT SUBSTANCES AND PRESCRIBED MEDICATIONS WERE PRESENT. PROCEDURE CODES FA211 ESTABILISHED PATIENT [facility] CHARGE DISPOSITION & COMMUNICATION FOLLOW UP 3 MONTHS ELECTRONICALLY SIGNED BY BOGDAN PRADHAN ON 10/25/2019 AT 09:17 AM EST DISCLAIMER : THIS IS A VISIT SUMMARY EXTRACTED FROM THE [employer] CHART. IT IS NOT A COPY OF THE [employer] PROGRESS NOTE. LYNDSAY
== END ==
LOC: M PAIN 13:15
PROVIDERS: ATTEND Family Medicine
DX: M50.10 Cervical disc disorder with radiculopathy, unspecified cervical region (principal)

== ENCOUNTER → 2020-01-23 | Outpatient (CLI) | payer OTHER ==
[~2020-01-23] MED LIST changes: +CYCL-707 PO; -CYCL10TA PO
--- NOTE | 2020-01-25 01:58 | ECWPNPC ---
PATIENT NAME: CORY JEFFERY : 1965 GENDER: MALE VISIT DATE: 01/23/2020 DISCHARGE DATE: 01/23/20 1022 VISIT LOCKED DATE TIME: PHYSICIAN: RACHNA HUITRON RESOURCE: RACHNA HUITRON REASON FOR APPOINTMENT 1. BACK/NECK/GROIN HISTORY OF PRESENT ILLNESS HISTORY OF PRESENT ILLNESS: PAIN THE PATIENT DESCRIBES THE PAINDURING THE LAST MONTH SEVERITY - PAIN SCORE OF5/10 LOCATIONSNECK, LOWER BACK QUALITYACHING , BURNING DURATIONCONTINUOUS, CONSTANT, ALL DAY PAIN IS INCREASED BY:ACTIVITIES PAIN IS DECREASED BY: INJECTIONS 54-YEAR-OLD MALE IN FOR CHRONIC PAIN FOLLOW-UP. HE RATES PAIN CURRENTLY AT A 5 OUT OF 10 AND DESCRIBES IT ACHING AND BURNING. HE FEELS MEDICATIONS ARE WORKING WELL AND DENIES MED SIDE EFFECTS AT THIS TIME. FALL RISK SCREENING: SCREENING :TWO OR MORE FALLS WITHOUT INJURY IN THE PAST YEAR CURRENT MEDICATIONS TAKING METOPROLOL SUCCINATE 100 MG TABLET EXTENDED RELEASE 1 CAPSULE ORALLY ONCE A DAY TAKING PROPECIA 1 MG TABLET 1 TABLET ORALLY ONCE A DAY TAKING XIIDRA 5 % SOLUTION 1 DROP INTO AFFECTED EYE OPHTHALMIC TWICE A DAY TAKING GABAPENTIN 100 MG CAPSULE ORALLY 3 TIMES A DAY TAKING TRAMADOL HCL 50 MG TABLET 1 TABLET NEEDED ORALLY Q8H PRN MDD3 NOT-TAKING ROGAINE 2 % SOLUTION 1 ML TO AFFECTED AREA EXTERNALLY TWICE A DAY NOT-TAKING MUCINEX 600 MG TABLET EXTENDED RELEASE 1 TABLET NEEDED ORALLY EVERY 12 HRS MEDICATION LIST REVIEWED AND RECONCILED WITH THE PATIENT PAST MEDICAL HISTORY HYPERTENSION HISTORY OF KIDNEY STONES HERNIATED DDD LUMBAR L5-S1 NECK PAIN ILIOINGUINAL HERNIA REPAIR TWICE ON EACH SIDE/ NEURALGIA CHRONIC PAIN WITH DR JOHN PELLUCID MARGINAL DEGENERATION FIBROMYALGIA PTSD DEPRESSION DISCITUS SPINAL STENOSIS ALLERGIES POISON MERT: RASH AND ITCHING - ALLERGY CYMBALTA: MENTAL DISTRESS - SIDE EFFECTS SURGICAL HISTORY AMPUTATION LEFT PINKY FINGER 05/1970 LEFT INGUINIAL HERNIA REPAIR 03/1996 RIGHT INGUINIAL HERNIA REPAIR 04/2002 RIGHT SHOULDER ROTATOR CUFF REPAIR AND CLAVICULAR RESECTION AND REPAIR OF TEAR 04/2009 AND 04/2010 BILATERAL INGUINIAL REPAIR 2012 LEFT PLICA REMOVAL 2004 AND 2010 LEFT WRIST CARPUL TUNNEL REPAIR 2012 LUMBAR DISCECTOMY L5-S1 2013 FAMILY HISTORY FATHER: , DIAGNOSED WITH OTHER MALIGNANT NEOPLASM OF UNSPECIFIED SITE MOTHER: ALIVE, OTHER MALIGNANT NEOPLASM OF UNSPECIFIED SITE PATERNAL GRAND FATHER: RHEUMATOID / PSORIATIC ARTHRITIS PATERNAL GRAND MOTHER: RHEUMATOID SISTER: LUPUS, DIAGNOSED WITH OTHER MALIGNANT NEOPLASM OF UNSPECIFIED SITE 1 SISTER(S) - HEALTHY. NEICE- LUPUS\\\\N\\\\NPATERNAL AUNTS- RHEUMATOID. SOCIAL HISTORY GENERAL: TOBACCO USE ARE YOU A:NONSMOKER HIV / HEP-C SCREENING HIV TEST OFFERED TO PATIENT:NO HEP-C TEST OFFERED TO PATIENT:NO OTHERS AT HOME: FATHER AND GIRLFRIEND. EDUCATION LEVEL OF EDUCATION:FINISHED COLLEGE DIET: REGULAR. LANGUAGE LANGUAGES SPOKEN:TURKMEN NEW PATIENT PAIN DIARY PATIENT DESCRIBES PAIN :ACHING, BURNING, HAVE IT ALL THE TIME FROM 0-10, WHAT LEVEL IS YOUR PAIN TODAY?5 PRECIPITATING FACTORS ANY TYPE OF ACTIVITIES ALLEVIATING FACTORS INJECTIONS RECREATIONAL DRUG USE DRUG USE?NO EXERCISE: TREADMILL AND PADDLEBOARD. LEARNING BARRIERS / SPECIAL NEEDS CHANGE FROM LAST VISIT?NO BARRIERS TO LEARNING?NO HEARING IMPAIRED?NO TINNITIS VISION IMPAIRED?YES COGNITIVELY IMPAIRED?NO :CORRECTIVE LENSES READINESS TO LEARN?YES LEARNING PREFERENCES?NO LEARNING CAPABILITIES PRESENT?YES EMOTIONAL BARRIERS?NO SPECIAL DEVICES?NO MOLD MAKER HELPER NEEDED?NO PAIN CLINIC PFS, CLERGY, PUBLIC HEALTH REFERRALS PFS REFERRAL NEEDED?NO CLERGY REFERRAL NEEDED?NO PUBLIC HEALTH REFERRAL NEEDED?NO WAS THE PROVIDER NOTIFIED OF ANY PERTINENT INFO?NO HAS THE PATIENT BEEN EDUCATED REGARDING HIS/HER PLAN OF CARE?YES HAS THE PATIENT BEEN EDUCATED REGARDING PAIN, THE RISK FOR PAIN, THE IMPORTANCE OF EFFECTIVE PAIN MANAGEMENT, AND THE PAIN ASSESSMENT PROCESS?YES LATEX QUESTIONNAIRE LATEX ALLERGY : HAVE YOU EVER DEVELOPED ANY TYPE OF REACTION AFTER HANDLING LATEX PRODUCTS SUCH RUBBER GLOVES, CONDOMS, DIAPHRAGMS, BALLOONS, SOCKS, OR UNDERWEAR?NO LATEX ALLERGY : HAVE YOU EVER DEVELOPED ANY TYPE OF REACTION DURING OR AFTER DENTAL APPOINTMENT, VAGINAL/RECTAL EXAMINATION, SURGICAL PROCEDURE, OR ANY OTHER EXPOSURE?NO DATE ASKED : 01/19/2019 LATEX RISK : HAVE YOU EVER HAD ANY DIFFICULTY BREATHING OR HIVES AFTER EATING OR HANDLING ANY FRUITS, OR VEGETABLES; SUCH KIWI, BANANAS, STONE FRUITS, OR CHESTNUTSNO LATEX RISK : DO YOU HAVE A PREVIOUS PERSONAL HISTORY OF MORE THAN NINE SURGERIES, SPINA BIFIDA, OR REPEATED CATHERIZATIONS? YES - PLEASE INDICATE : > 9 SURGERIES LATEX RISK : ARE YOU FREQUENTLY EXPOSED TO LATEX PRODUCTS IN YOUR OCCUPATION?NO CAFFEINE CAFFEINE USE?YES COFFEE HOW OFTEN AND HOW MUCH? 2 CUPS PER DAY ADVANCE DIRECTIVE ADVANCE DIRECTIVE DISCUSSED WITH PATIENT:YES PT DOES NOT HAVE ANY ADVANCED DIRECTIVES AND HE DECLINES INFORMATION ON HCP AT THIS. ROMAN CATHOLIC [id number] AMISH MARITAL STATUS: SINGLE. ALCOHOL SCREENING DID YOU HAVE A DRINK CONTAINING ALCOHOL IN THE PAST YEAR?YES HOW OFTEN DID YOU HAVE SIX OR MORE DRINKS ON ONE OCCASION IN THE PAST YEAR?NEVER (0 POINTS) HOW MANY DRINKS DID YOU HAVE ON A TYPICAL DAY WHEN YOU WERE DRINKING IN THE PAST YEAR?1 OR 2 (0 POINTS) HOW OFTEN DID YOU HAVE A DRINK CONTAINING ALCOHOL IN THE PAST YEAR?TWO TO FOUR TIMES A MONTH (2 POINTS) POINTS2 INTERPRETATIONNEGATIVE OCCUPATION: [employer]. HOSPITALIZATION/MAJOR DIAGNOSTIC PROCEDURE SEE ABOVE - SURGERIES REVIEW OF SYSTEMS REVIEWED BY: PROVIDER: BRANDON HUITRON STOCK UNLOADER-C . CONSTITUTIONAL: ANY CHANGE IN YOUR MEDICAL CONDITION? NO . CHILLS NO . FEVER NO . INFECTION: DO YOU HAVE NEW INFECTIONS? NO . DO YOU HAVE HISTORY OF MRSA? NO . MUSCULOSKELETAL: ANY NEW PATTERNS OF PAIN OR NUMBNESS? NO . GASTROENTEROLOGY: ANY NEW CHANGE IN BOWEL CONTROL? NO . GENITOURINARY: ANY NEW CHANGE IN BLADDER CONTROL? NO . IS THERE A CHANCE YOU COULD BE ? NO . HEMATOLOGY/LYMPH: DO YOU TAKE ANY BLOOD THINNERS? (FOR EXAMPLE- COUMADIN, PLAVIX, AGGRENOX, PLATEL, PRADAXA, OR XARELTO) NO . WHEN WAS YOUR LAST DOSE? DATE: TIME: . NEUROLOGY: HAVE YOU FALLEN IN THE PAST 12 MONTHS? NO . ANY NEW EXTREMITY NUMBNESS OR WEAKNESS? NO . CARDIOLOGY: DO YOU HAVE A PACEMAKER OR DEFIBRILLATOR? NO . RESPIRATORY: HAVE YOU BEEN SICK IN THE PAST WEEK? NO . FEVER NO . FLU LIKE SYMPTOMS? NO . COUGH NO . INTEGUMENTARY: DO YOU HAVE ANY RASHES OR OPEN SORES? NO . ALLERGIC/IMMUNO: ARE YOU ALLERGIC TO IV DYE? NO . ANY NEW ALLERGIES? NO . PSYCHIATRIC: DO YOU HAVE THOUGHTS OF HURTING YOURSELF OR SOMEONE ELSE? NO . ARE YOU ABUSED, NEGLECTED, OR IN AN UNSAFE ENVIRONMENT? NO . ENDOCRINOLOGY: ARE YOU DIABETIC? NO . OTHER: DO YOU NEED ANY PRESCRIPTIONS? NO . IF YES, PLEASE LIST: ____ . ANY NEW PROBLEMS WITH YOUR MEDICATIONS? NO . WHEN DID YOU LAST EAT? ____ . WHEN DID YOU LAST DRINK? ____ . WHAT DID YOU LAST DRINK? ____ . NAME OF PERSON DRIVING YOU HOME? ____ . DO YOU HAVE ANY OTHER QUESTIONS OR CONCERNS YES, DISCUSS DIFFICULTY SLEEPING . VITAL SIGNS WT 239.6 LBS, HT 70", BMI 34.38 INDEX, BP 150/76 MM HG, HR 83 /MIN, RR 18 /MIN, TEMP 97.0 F, OXYGEN SAT % 92%, SAFE IN ENV? (Y/N) YES, NA INITIALS AW 0917, REVIEWED BY: FREDDY SOW LPN. EXAMINATION GENERAL EXAMINATION: GENERALNO ACUTE DISTRESS, WELL NOURISHED AND HYDRATED. PSYCHAPPROPRIATE MOOD AND AFFECT . LUNGS:CLEAR TO AUSCULTATION BILATERALLY, NO WHEEZES, RHONCHI, RALES. HEART:NO MURMURS, REGULAR RATE AND RHYTHM. 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 GIVEN PRESENTING SYMPTOMS RECOMMENDED CONTINUATION OF CURRENT MEDICATION REGIMEN WITH FOLLOW-UP IN 2 MONTHS. WE'LL COLLECT U TOX AND HAVE PATIENT'S SIGN NARCOTIC AGREEMENT TODAY. PATIENT HAS EXPRESSED UNDERSTANDING OF AND WAS IN AGREEMENT WITH TREATMENT PLAN. GIVEN TIME TO ASK QUESTIONS AND EXPRESS CONCERNS., ISTOP REGISTRY REVIEWED AND DEMONSTRATES COMPLLIANCE. (REF # [id number] ) BRINGS IN MEDICATIONS WHICH IS APPROPRIATE FOR WHAT WAS DISPENSED. RECENT URINE TOXICOLOGY REVIEWED. NO UNAUTHORIZED MEDICATIONS. NO ILLICIT SUBSTANCES AND PRESCRIBED MEDICATIONS WERE PRESENT. PROCEDURE CODES FA211 ESTABILISHED PATIENT [facility] CHARGE DISPOSITION & COMMUNICATION FOLLOW UP 2 MONTHS (REASON: NECK, BACK, GROIN PAIN) ELECTRONICALLY SIGNED BY BOGDAN PRADHAN ON 01/24/2020 AT 08:44 AM EDT DISCLAIMER : THIS IS A VISIT SUMMARY EXTRACTED FROM THE [employer] CHART. IT IS NOT A COPY OF THE [employer] PROGRESS NOTE. LYNDSAY
== END ==
LOC: M PAIN 09:45
PROVIDERS: ATTEND Family Medicine
DX: M96.1 Postlaminectomy syndrome, not elsewhere classified (principal); G57.91 Unspecified mononeuropathy of right lower limb; M50.10 Cervical disc disorder with radiculopathy, unspecified cervical region; I10 Essential (primary) hypertension; M79.7 Fibromyalgia; Z86.59 Personal history of other mental and behavioral disorders; Z88.8 Allergy status to other drugs, medicaments and biological substances; Z91.09 Other allergy status, other than to drugs and biological substances; Z79.899 Other long term (current) drug therapy

== ENCOUNTER → 2020-03-20 | Outpatient (CLI) | payer OTHER ==
--- NOTE | 2020-03-25 04:33 | ECWPNPC ---
PATIENT NAME: CORY JEFFERY : 1965 GENDER: MALE VISIT DATE: 03/20/2020 DISCHARGE DATE: 03/20/20928 VISIT LOCKED DATE TIME: PHYSICIAN: RACHNA HUITRON RESOURCE: RACHNA HUITRON REASON FOR APPOINTMENT 1. NECK, BACK, GROIN PAIN HISTORY OF PRESENT ILLNESS GENERAL: -54-YEAR-OLD MALE IN FOR CHRONIC PAIN FOLLOW-UP. HE RATES HIS PAIN CURRENTLY AT A 7 OUT OF 10 AND DESCRIBES IT BURNING. PATIENT HAS HAD CERVICAL EPIDURALS IN THE PAST AND FOUND GOOD RELIEF WITH THEM. PAIN SCREENING: PATIENT HAS A COMPLAINT OF ACUTE OR CHRONIC PAIN :YES LOCATION OF PAIN:NECK INTENSITY OF PAIN (SCALE OF 1 TO 10):7 WHAT DOES YOUR PAIN FEEL LIKE:BURNING DURATION:CONTINOUS, CONSTANT, ALL DAY PAIN IS DECREASED BY: NOTHING PAIN HAS INTERFERED WITH THE FOLLOWING:BATHING/DRESSING, MOOD, HOUSEWORK, RELATIONSHIP WITH OTHERS, ENJOYMENT OF LIFE PLAN/GOALS/TREATMENT/INTERVENTION/FOLLOW UP:SEE PLAN FALL RISK SCREENING: SCREENING :NO FALLS REPORTED IN THE LAST YEAR NURSING NOTE: -. PAIN CENTER INTAKE QUESTIONS: DO YOU HAVE A HISTORY OF MRSA? :NO DO YOU TAKE A BLOOD THINNERS? :NO DO YOU HAVE ANY BLEEDING DISORDERS? :NO ANY NEW NUMBNESS OR WEAKNESS IN YOUR LEGS OR ARMS? :NO ANY PACEMAKER,DEFIBRILLATOR, OR DORSAL COLUMN STIMULATOR? :NO DO YOU HAVE ANY RASHES OR OPEN SORES? :NO ARE YOU ALLERGIC TO IV DYE? :NO ARE YOU DIABETIC? :NO ANY NEW PROBLEMS WITH YOUR MEDICATIONS? :NO HAVE YOU RECEIVED A VACCINE IN THE PAST 30 DAYS? :NO DO YOU PLAN TO RECEIVE A VACCINE IN THE NEXT 21 DAYS? :NO DO YOU NEED ANY PRESCRIPTION? :NO DO YOU TAKE ANY IMMUNOSUPPRESSIVE MEDICATIONS? :NO IS THERE A CHANCE YOU COULD BE ? :NO ARE YOU BREAST FEEDING? :NO CURRENT MEDICATIONS TAKING METOPROLOL SUCCINATE 100 MG TABLET EXTENDED RELEASE 1 CAPSULE ORALLY ONCE A DAY TAKING PROPECIA 1 MG TABLET 1 TABLET ORALLY ONCE A DAY TAKING XIIDRA 5 % SOLUTION 1 DROP INTO AFFECTED EYE OPHTHALMIC TWICE A DAY TAKING GABAPENTIN 100 MG CAPSULE ORALLY 3 TIMES A DAY TAKING TRAMADOL HCL 50 MG TABLET 1 TABLET NEEDED ORALLY Q8H PRN MDD3 NOT-TAKING ROGAINE 2 % SOLUTION 1 ML TO AFFECTED AREA EXTERNALLY TWICE A DAY NOT-TAKING MUCINEX 600 MG TABLET EXTENDED RELEASE 1 TABLET NEEDED ORALLY EVERY 12 HRS PAST MEDICAL HISTORY HYPERTENSION HISTORY OF KIDNEY STONES HERNIATED DDD LUMBAR L5-S1 NECK PAIN ILIOINGUINAL HERNIA REPAIR TWICE ON EACH SIDE/ NEURALGIA CHRONIC PAIN WITH DR JOHN PELLUCID MARGINAL DEGENERATION FIBROMYALGIA PTSD DEPRESSION DISCITUS SPINAL STENOSIS ALLERGIES POISON MERT: RASH AND ITCHING - ALLERGY CYMBALTA: MENTAL DISTRESS - SIDE EFFECTS SURGICAL HISTORY AMPUTATION LEFT PINKY FINGER 05/1970 LEFT INGUINIAL HERNIA REPAIR 03/1996 RIGHT INGUINIAL HERNIA REPAIR 04/2002 RIGHT SHOULDER ROTATOR CUFF REPAIR AND CLAVICULAR RESECTION AND REPAIR OF TEAR 04/2009 AND 04/2010 BILATERAL INGUINIAL REPAIR 2011 LEFT PLICA REMOVAL 2004 AND 2010 LEFT WRIST CARPUL TUNNEL REPAIR 2012 LUMBAR DISCECTOMY L5-S1 2013 FAMILY HISTORY FATHER: , DIAGNOSED WITH OTHER MALIGNANT NEOPLASM OF UNSPECIFIED SITE MOTHER: ALIVE, OTHER MALIGNANT NEOPLASM OF UNSPECIFIED SITE PATERNAL GRAND FATHER: RHEUMATOID / PSORIATIC ARTHRITIS PATERNAL GRAND MOTHER: RHEUMATOID SISTER: LUPUS, DIAGNOSED WITH OTHER MALIGNANT NEOPLASM OF UNSPECIFIED SITE 1 SISTER(S) - HEALTHY. NEICE- LUPUS\\\\N\\\\NPATERNAL AUNTS- RHEUMATOID. SOCIAL HISTORY GENERAL: TOBACCO USE ARE YOU A:NONSMOKER LATEX QUESTIONNAIRE LATEX ALLERGY : HAVE YOU EVER DEVELOPED ANY TYPE OF REACTION AFTER HANDLING LATEX PRODUCTS SUCH RUBBER GLOVES, CONDOMS, DIAPHRAGMS, BALLOONS, SOCKS, OR UNDERWEAR?NO LATEX ALLERGY : HAVE YOU EVER DEVELOPED ANY TYPE OF REACTION DURING OR AFTER DENTAL APPOINTMENT, VAGINAL/RECTAL EXAMINATION, SURGICAL PROCEDURE, OR ANY OTHER EXPOSURE?NO LATEX RISK : HAVE YOU EVER HAD ANY DIFFICULTY BREATHING OR HIVES AFTER EATING OR HANDLING ANY FRUITS, OR VEGETABLES; SUCH KIWI, BANANAS, STONE FRUITS, OR CHESTNUTSNO LATEX RISK : DO YOU HAVE A PREVIOUS PERSONAL HISTORY OF MORE THAN NINE SURGERIES, SPINA BIFIDA, OR REPEATED CATHERIZATIONS? YES - PLEASE INDICATE : > 9 SURGERIES LATEX RISK : ARE YOU FREQUENTLY EXPOSED TO LATEX PRODUCTS IN YOUR OCCUPATION?NO DATE ASKED : 03/20/2020 ALCOHOL SCREENING DID YOU HAVE A DRINK CONTAINING ALCOHOL IN THE PAST YEAR?YES HOW OFTEN DID YOU HAVE SIX OR MORE DRINKS ON ONE OCCASION IN THE PAST YEAR?NEVER (0 POINTS) HOW MANY DRINKS DID YOU HAVE ON A TYPICAL DAY WHEN YOU WERE DRINKING IN THE PAST YEAR?1 OR 2 (0 POINTS) HOW OFTEN DID YOU HAVE A DRINK CONTAINING ALCOHOL IN THE PAST YEAR?TWO TO FOUR TIMES A MONTH (2 POINTS) POINTS2 INTERPRETATIONNEGATIVE RECREATIONAL DRUG USE DRUG USE?NO CAFFEINE CAFFEINE USE?YES COFFEE HOW OFTEN AND HOW MUCH? 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 EXERCISE: TREADMILL AND PADDLEBOARD. MARITAL STATUS: SINGLE. OTHERS AT HOME: FATHER AND GIRLFRIEND. NEW PATIENT PAIN DIARY PATIENT DESCRIBES PAIN :ACHING, BURNING, HAVE IT ALL THE TIME FROM 0-10, WHAT LEVEL IS YOUR PAIN TODAY?5 PRECIPITATING FACTORS ANY TYPE OF ACTIVITIES ALLEVIATING FACTORS INJECTIONS PAIN CLINIC PFS, CLERGY, PUBLIC HEALTH REFERRALS PFS REFERRAL NEEDED?NO CLERGY REFERRAL NEEDED?NO PUBLIC HEALTH REFERRAL NEEDED?NO WAS THE PROVIDER NOTIFIED OF ANY PERTINENT INFO?NO HAS THE PATIENT BEEN EDUCATED REGARDING HIS/HER PLAN OF CARE?YES HAS THE PATIENT BEEN EDUCATED REGARDING PAIN, THE RISK FOR PAIN, THE IMPORTANCE OF EFFECTIVE PAIN MANAGEMENT, AND THE PAIN ASSESSMENT PROCESS?YES ADVANCE DIRECTIVE ADVANCE DIRECTIVE DISCUSSED WITH PATIENT:YES PT DOES NOT HAVE ANY ADVANCED DIRECTIVES AND HE DECLINES INFORMATION ON HCP AT THIS. HOSPITALIZATION/MAJOR DIAGNOSTIC PROCEDURE SEE ABOVE - SURGERIES REVIEW OF SYSTEMS CONSTITUTIONAL: ANY RECENT FEVER OR ILLNESS NO . CHILLS NO . GASTROENTEROLOGY: BOWEL INCONTINENCE NO . ANY NEW CHANGE IN BOWEL CONTROL? NO . ABDOMINAL PAIN NO . CONSTIPATION NO . GENITOURINARY: ANY NEW CHANGE IN BLADDER CONTROL? NO . URINARY INCONTINENCE NO . CARDIOLOGY: CHEST PRESSURE NO . CHEST PAIN NO . RESPIRATORY: COUGH NO . SHORTNESS OF BREATH NO . VITAL SIGNS WT 240.8 LBS, HT 70", BMI 34.55 INDEX, BP 134/101 MM HG, REPEAT BP 134/82 MM HG, HR 64 /MIN, RR 18 /MIN, TEMP 98.2 F, OXYGEN SAT % 98%, SAFE IN ENV? 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 EXAMINATION GENERAL EXAMINATION: GENERALNO ACUTE DISTRESS, WELL NOURISHED AND HYDRATED. PSYCHAPPROPRIATE MOOD AND AFFECT . NECK:POINT TENDER ALONG CERVICAL SPINE, SURROUNDING SKIN SHOWS NO ERYTHEMA, ECCHYMOSIS, INCREASED WARMTH, AND/OR SKIN ERUPTIONS NOTED. . LUNGS:CLEAR TO AUSCULTATION BILATERALLY, NO WHEEZES, RHONCHI, RALES. HEART:NO MURMURS, REGULAR RATE AND RHYTHM. ASSESSMENTS CERVICAL DISC DISORDER WITH RADICULOPATHY - M50.10 (PRIMARY) TREATMENT CERVICAL DISC DISORDER WITH RADICULOPATHY NOTES: LORENZO C7-T1. CLINICAL NOTES: 54-YEAR-OLD MALE IN FOR CHRONIC PAIN FOLLOW-UP. GIVEN PRESENTING SYMPTOMS AND RESULTS OF PHYSICAL EXAMINATION RECOMMENDED LORENZO C7-T1 WITH POSTPROCEDURAL FOLLOW-UP. PATIENT DOES ADMIT TO MEDICAL MARIJUANA USE AND WAS INFORMED THAT HE WOULD HAVE TO CHOOSE BETWEEN MEDICAL MARIJUANA AND THE USE OF TRAMADOL AT THIS TIME PATIENT WILL CONTINUE WITH MEDICAL MARIJUANA USE. PATIENT HAS EXPRESSED UNDERSTANDING OF AND WAS IN AGREEMENT WITH TREATMENT PLAN. GIVEN TIME TO ASK QUESTIONS AND EXPRESS CONCERNS. OTHERS NOTES: CERVICAL EPIDURAL INJECTION MATERIAL WAS PRINTED. PROCEDURE CODES FA211 ESTABILISHED PATIENT [facility] FACILITY CHARGE DISPOSITION & COMMUNICATION FOLLOW UP POSTPROCEDURE (REASON: CERVICAL EPIDURAL C7-T1) ELECTRONICALLY SIGNED BY BOGDAN PRADHAN ON 03/24/2020 AT 08:06 AM EDT DISCLAIMER : THIS IS A VISIT SUMMARY EXTRACTED FROM THE [employer] CHART. IT IS NOT A COPY OF THE [employer] PROGRESS NOTE. LYNDSAY
== END ==
LOC: M PAIN 08:45
PROVIDERS: ATTEND Family Medicine
DX: M50.10 Cervical disc disorder with radiculopathy, unspecified cervical region (principal)

== ENCOUNTER → 2020-03-30 | Outpatient (CLI) | payer OTHER | LOC: M LABSMTC 10:54 | PROVIDERS: ATTEND Anesthesiology | DX: Z11.59 Encounter for screening for other viral diseases (principal); Z03.818 Encounter for observation for suspected exposure to other biological agents ruled out | CPT/HCPCS: C9803; U0003 ==

== ENCOUNTER → 2020-04-02 | Outpatient (CLI) | payer OTHER ==
[~2020-04-02] MED LIST changes: +ISOVUE-M 300 61% 15ML VIAL As Ordered ONE; +LIDOCAINE 1% SDV 30ML VIAL As Ordered ONE; +diazePAM 5 MG TAB As Ordered ONE; +methylPREDNISolone SUSP 40 MG/ML (DEPO-medrol) VIAL (J1030) As Ordered ONE; +oxyCODONE 5MG TAB As Ordered ONE
--- NOTE | 2020-04-02 15:41 | REP ---
C-ARM VIEWS OF THE CERVICAL SPINE: CLINICAL HISTORY: Pain. Two C-arm views of the cervical spine region performed during epidural injection by Dr. Wilkinson. Needle was seen overlying the lower cervical spine. 12 seconds of fluoroscopy time utilized. Electronically Signed by Benjamin Aldrich MD 04/02/2020 07:39 P
--- NOTE | 2020-04-03 00:11 | ECWPNPC ---
PATIENT NAME: CORY JEFFERY : 1965 GENDER: MALE VISIT DATE: 04/02/2020 DISCHARGE DATE: 04/02/20 1455 VISIT LOCKED DATE TIME: PHYSICIAN: LISY JOHN MD RESOURCE: LISY JOHN MD REASON FOR APPOINTMENT 1. LORENZO C7/T1 PAT DONE HISTORY OF PRESENT ILLNESS GENERAL: -. FALL RISK SCREENING: SCREENING :TWO OR MORE FALLS WITHOUT INJURY IN THE PAST YEAR PAIN SCREENING: PATIENT HAS A COMPLAINT OF ACUTE OR CHRONIC PAIN :YES LOCATION OF PAIN:NECK, LEFT SHOULDER, RIGHT SHOULDER, OTHER: INTENSITY OF PAIN (SCALE OF 1 TO 10):5 WHAT DOES YOUR PAIN FEEL LIKE:ACHING, BURNING, CONTINOUS, SHOOTING NURSING NOTE: -. PAIN CENTER INTAKE QUESTIONS: DO YOU HAVE A HISTORY OF MRSA? :NO DO YOU TAKE A BLOOD THINNERS? :NO DO YOU HAVE ANY BLEEDING DISORDERS? :NO ANY NEW NUMBNESS OR WEAKNESS IN YOUR LEGS OR ARMS? :NO ANY PACEMAKER,DEFIBRILLATOR, OR DORSAL COLUMN STIMULATOR? :NO DO YOU HAVE ANY RASHES OR OPEN SORES? :NO ARE YOU ALLERGIC TO IV DYE? :NO ARE YOU DIABETIC? :NO ANY NEW PROBLEMS WITH YOUR MEDICATIONS? :NO HAVE YOU RECEIVED A VACCINE IN THE PAST 30 DAYS? :NO DO YOU PLAN TO RECEIVE A VACCINE IN THE NEXT 21 DAYS? :NO DO YOU TAKE ANY IMMUNOSUPPRESSIVE MEDICATIONS? :YES STEROID EYE DROPS, STOPPED TAKING 1 WEEK AGO ANY HISTORY OF SEIZURES? :NO ANY HISTORY OF CARDIAC ISSUES OR EVENTS? :NO DO YOU HAVE SLEEP APNEA? :NO ANY RECENT HEAD INJURY? :NO DO YOU HAVE ANY NEW INFECTIONS? :NO IS THERE A CHANCE YOU COULD BE ? :NO ARE YOU BREAST FEEDING? :NO WHEN DID YOU LAST EAT? : 04/01 1730 WHEN DID YOU LAST DRINK? : 04/02 830 WHAT DID YOU LAST DRINK? : WATER NAME OF PERSON DRIVING YOU HOME? : -NEIGHBOR- [facility] [place] DO YOU HAVE ANY OTHER QUESTIONS OR CONCERNS? : NO CURRENT MEDICATIONS TAKING METOPROLOL SUCCINATE 100 MG TABLET EXTENDED RELEASE 1 CAPSULE ORALLY ONCE A DAY, NOTES: 04/02 730 TAKING PROPECIA 1 MG TABLET 1 TABLET ORALLY ONCE A DAY, NOTES: 04/02 730 TAKING XIIDRA 5 % SOLUTION 1 DROP INTO AFFECTED EYE OPHTHALMIC TWICE A DAY, NOTES: 1 WEEK AGO TAKING GABAPENTIN 100 MG CAPSULE ORALLY 3 TIMES A DAY, NOTES: 04/02 730 TAKING TRAMADOL HCL 50 MG TABLET 1 TABLET NEEDED ORALLY Q8H PRN MDD3, NOTES: 04/02 730 NOT-TAKING ROGAINE 2 % SOLUTION 1 ML TO AFFECTED AREA EXTERNALLY TWICE A DAY NOT-TAKING MUCINEX 600 MG TABLET EXTENDED RELEASE 1 TABLET NEEDED ORALLY EVERY 12 HRS MEDICATION LIST REVIEWED AND RECONCILED WITH THE PATIENT PAST MEDICAL HISTORY HYPERTENSION HISTORY OF KIDNEY STONES HERNIATED DDD LUMBAR L5-S1 NECK PAIN ILIOINGUINAL HERNIA REPAIR TWICE ON EACH SIDE/ NEURALGIA CHRONIC PAIN WITH DR JOHN PELLUCID MARGINAL DEGENERATION FIBROMYALGIA PTSD DEPRESSION DISCITUS SPINAL STENOSIS ALLERGIES POISON MERT: RASH AND ITCHING - ALLERGY CYMBALTA: MENTAL DISTRESS - SIDE EFFECTS SURGICAL HISTORY AMPUTATION LEFT PINKY FINGER 05/1970 LEFT INGUINIAL HERNIA REPAIR 03/1996 RIGHT INGUINIAL HERNIA REPAIR 04/2002 RIGHT SHOULDER ROTATOR CUFF REPAIR AND CLAVICULAR RESECTION AND REPAIR OF TEAR 04/2009 AND 04/2010 BILATERAL INGUINIAL REPAIR 2011 LEFT PLICA REMOVAL 2004 AND 2010 LEFT WRIST CARPUL TUNNEL REPAIR 2011 LUMBAR DISCECTOMY L5-S1 2013 FAMILY HISTORY FATHER: , DIAGNOSED WITH OTHER MALIGNANT NEOPLASM OF UNSPECIFIED SITE MOTHER: ALIVE, OTHER MALIGNANT NEOPLASM OF UNSPECIFIED SITE PATERNAL GRAND FATHER: RHEUMATOID / PSORIATIC ARTHRITIS PATERNAL GRAND MOTHER: RHEUMATOID SISTER: LUPUS, DIAGNOSED WITH OTHER MALIGNANT NEOPLASM OF UNSPECIFIED SITE 1 SISTER(S) - HEALTHY. NEICE- LUPUS\\\\N\\\\NPATERNAL AUNTS- RHEUMATOID. SOCIAL HISTORY GENERAL: TOBACCO USE ARE YOU A:NONSMOKER LATEX QUESTIONNAIRE LATEX ALLERGY : HAVE YOU EVER DEVELOPED ANY TYPE OF REACTION AFTER HANDLING LATEX PRODUCTS SUCH RUBBER GLOVES, CONDOMS, DIAPHRAGMS, BALLOONS, SOCKS, OR UNDERWEAR?NO LATEX ALLERGY : HAVE YOU EVER DEVELOPED ANY TYPE OF REACTION DURING OR AFTER DENTAL APPOINTMENT, VAGINAL/RECTAL EXAMINATION, SURGICAL PROCEDURE, OR ANY OTHER EXPOSURE?NO LATEX RISK : HAVE YOU EVER HAD ANY DIFFICULTY BREATHING OR HIVES AFTER EATING OR HANDLING ANY FRUITS, OR VEGETABLES; SUCH KIWI, BANANAS, STONE FRUITS, OR CHESTNUTSNO LATEX RISK : DO YOU HAVE A PREVIOUS PERSONAL HISTORY OF MORE THAN NINE SURGERIES, SPINA BIFIDA, OR REPEATED CATHERIZATIONS? YES - PLEASE INDICATE : > 9 SURGERIES LATEX RISK : ARE YOU FREQUENTLY EXPOSED TO LATEX PRODUCTS IN YOUR OCCUPATION?NO DATE ASKED : 04/02/2020 ALCOHOL SCREENING DID YOU HAVE A DRINK CONTAINING ALCOHOL IN THE PAST YEAR?YES HOW OFTEN DID YOU HAVE SIX OR MORE DRINKS ON ONE OCCASION IN THE PAST YEAR?NEVER (0 POINTS) HOW MANY DRINKS DID YOU HAVE ON A TYPICAL DAY WHEN YOU WERE DRINKING IN THE PAST YEAR?1 OR 2 (0 POINTS) HOW OFTEN DID YOU HAVE A DRINK CONTAINING ALCOHOL IN THE PAST YEAR?TWO TO FOUR TIMES A MONTH (2 POINTS) POINTS2 INTERPRETATIONNEGATIVE RECREATIONAL DRUG USE DRUG USE?NO CAFFEINE CAFFEINE USE?YES COFFEE HOW OFTEN AND HOW MUCH? 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 EXERCISE: TREADMILL AND PADDLEBOARD. MARITAL STATUS: SINGLE. OTHERS AT HOME: FATHER AND GIRLFRIEND. PAIN CLINIC PFS, CLERGY, PUBLIC HEALTH REFERRALS PFS REFERRAL NEEDED?NO CLERGY REFERRAL NEEDED?NO PUBLIC HEALTH REFERRAL NEEDED?NO HAS THE PATIENT BEEN EDUCATED REGARDING HIS/HER PLAN OF CARE?YES HAS THE PATIENT BEEN EDUCATED REGARDING PAIN, THE RISK FOR PAIN, THE IMPORTANCE OF EFFECTIVE PAIN MANAGEMENT, AND THE PAIN ASSESSMENT PROCESS?YES ADVANCE DIRECTIVE ADVANCE DIRECTIVE DISCUSSED WITH PATIENT:YES 04/02/20 PT DOES NOT HAVE ANY ADVANCED DIRECTIVES AND HE DECLINES INFORMATION ON HCP AT THIS TIME. HOSPITALIZATION/MAJOR DIAGNOSTIC PROCEDURE SEE ABOVE - SURGERIES VITAL SIGNS WT 240.8 LBS, HT 70", BMI 34.55 INDEX, BP 146/87 MM HG, HR 64 /MIN, RR 18 /MIN, TEMP 96.0 F, OXYGEN SAT % 98%, SAFE IN ENV? (Y/N) Y, NA INITIALS AW 1310, REVIEWED BY: AD. EXAMINATION GENERAL EXAMINATION: THE PATIENT IS ALERT, ORIENTED TIMES THREE AND COOPERATIVE. HEART SHOWS REGULAR RHYTHM, NO MURMURS AND NO GALLOPS. LUNGS ARE CLEAR TO AUSCULTATION. ASSESSMENTS CERVICAL DISC DISORDER WITH RADICULOPATHY - M50.10 (PRIMARY) TREATMENT CERVICAL DISC DISORDER WITH RADICULOPATHY [facility] FLUORO GUIDE SPINE INJECTION (PAIN)[id number] MEDICATION: OXYCONTIN TAB 5MG ORALLY (OXYCONDONE HCL)LARRY ASHER 04/02/2020 01:34:32 PM - GIVE 2 TABS JOSEPH BRYAN 04/02/2020 1:43:57 PM > GIVEN LOT # [id number] EXP 03/2021, LOT # [id number] EXP. 11/2021 ROSETTA WELLS 04/02/2020 1:45:19 PM > VERIFIED MEDICATION SALINE LOCKDEJOSEPH KRUGER 04/02/2020 1:56:20 PM > # 20 RIGHT HAND MEDICATION: VALIUM TAB 10MG ORALLY (DIAZEPAM)JOSEPH BRYAN 04/02/2020 1:44:59 PM > GIVEN LOT # [id number] EXP. DATE 09/2020 ROSETTA WELLS 04/02/2020 1:46:15 PM > VERIFIED MEDICATION PROCEDURES PAIN NURSING RECORD PRE-PROCEDURE IV SITE RIGHT HAND, IV STARTED # 20, IV STARTED BY: Nehal BRYAN RN, IV ATTEMPTS 1 PROCEDURE IN ROOM 1405-AMBULATED TO ROOM WITHOUT ASSISTANCE, PHYSICIAN IN ROOM 1418, START 1421, FINISH 1426, PHYSICIAN OUT OF ROOM 1429, OUT OF ROOM 1437-AMBULATORY WITH MINIMAL ASSISTANCE OF ONE, STEROID DEPOMEDROL, O2 RA, ECG NORMAL SINUS, PATIENT SHIELDED YES, SAFETY STRAP YES, PREP BETADINE Nehal BRYAN RN, IV INFUSED N/A, DRESSING TEGADERM DR. JOHN LOC: JOSEPH BRYAN 04/02/2020 1:58:40 PM > 1. ALERT, ORIENTED RESP: IRVINJOSEPH 04/02/2020 1:58:44 PM > 1. REGULAR, NO DYSPNEA COLOR: JOSEPH BRYAN 04/02/2020 1:58:48 PM > 1. PINK SKIN: IRVINJOSEPH 04/02/2020 1:58:51 PM > 1. WARM, DRY POSITION: 1. PRONE VITALS: IRVINJOSEPH 04/02/2020 2:05:09 PM > 141/97,79,16,94% IRVINJOSEPH 04/02/2020 2:14:22 PM > 132/80,78,16,94% IRVIN,JOSEPH 04/02/2020 2:29:18 PM > 136/95,72,16,94% JOSEPH BRYAN 04/02/2020 2:33:04 PM > 138/89,73,16,92% DISCHARGE: POST PAIN 5-6/10 AT INJECTION SITES, STATES HANDS AND ARMS ARE BETTER, DRESSING SITE DRY AND INTACT, IV DISCONTINUED, SITE CLEAR, CATHETER INTACT, GAIT STEADY, TEACHING COMPLETED, PATIENT ACKNOWLEDGES UNDERSTANDING YES, PATIENT DISCHARGED AT 1449 PN CERVICAL EPIDURAL PRE PROCEDURE DIAGNOSIS CERVICAL DISC DISORDER WITH RADICULOPATHY POST PROCEDURE DIAGNOSIS CERVICAL DISC DISORDER WITH RADICULOPATHY PROCEDURE CERVICAL EPIDURAL STEROID INJECTION UNDER FLUOROSCOPIC GUIDANCE SURGEON DR. LISY JOHN HOSTESS CASHIER NONE ANESTHESIA LOCAL PRE PROCEDURE NOTE THE PATIENT HAS A HISTORY OF CHRONIC CERVICAL PAIN. I EVALUATED THE PATIENT AND REVIEWED THE CHART. I WENT OVER THE RISKS, ALTERNATIVES, AND BENEFITS ASSOCIATED WITH THIS PROCEDURE. I DISCUSSED THAT THE USE OF STEROIDS MAY CONTRIBUTE TO IMMUNOSUPPRESSION OF THE PATIENT'S BODY AGAINST INFECTIONS SUCH COVID-19. THE PATIENT IS AWARE OF THE POTENTIAL COMPLICATIONS ASSOCIATED WITH THIS VIRUS, INCLUDING, BUT NOT LIMITED TO, . I DISCUSSED THE USE OF DEXAMETHASONE INSTEAD OF DEPO-MEDROL; HOWEVER, THE PATIENT WOULD LIKE TO MOVE FORWARD WITH DEPO-MEDROL. THE PATIENT WOULD LIKE TO PROCEED AND GIVE CONSENT TO PERFORMED THE PROCEDURE. THE PATIENT DENIES UNEXPLAINABLE WEIGHT LOSS, FEVER, CHILLS, OR NEW CHANGES IN URINARY OR BOWEL CONTROL. THE PATIENT IS COVID-19 NEGATIVE DESCRIPTION OF PROCEDURE THE PATIENT WAS BROUGHT TO THE PROCEDURE ROOM AND PLACED IN THE PRONE POSITION. THE CERVICOTHORACIC AREA WAS CLEANED WITH BETADINE SOLUTION AND DRAPED ASEPTICALLY. THE PROCEDURE WAS DONE UNDER STERILE CONDITIONS. I CHECKED LATERALITY AND THE LEVEL WHERE THE PROCEDURE WAS GOING TO BE PERFORMED WITH THE PATIENT AND THE SUPPORTING STAFF AT THE MOMENT OF THE TIME OUT IN THE PROCEDURE ROOM. UNDER FLUOROSCOPIC GUIDANCE, THE TARGET WAS SELECTED AT THE INTERLAMINAR LEVEL OF C7-T1. LIDOCAINE WAS USED TO NUMB THE SKIN AND THE SUBCUTANEOUS TISSUE BELOW IT. EPIDURAL TUOHY NEEDLE, 17-GAUGE, WAS ADVANCED UNDER FLUOROSCOPIC GUIDANCE AND FOLLOWING PATIENT FEEDBACK UNTIL THE EPIDURAL SPACE WAS REACHED 6 CM DEEP INTO THE SKIN BY THE LOSS OF RESISTANCE TECHNIQUE. ISOVUE M DYE 30%, 0.25 ML, WAS INJECTED SHOWING ADEQUATE SPREAD OF THE DYE. THEN, A SOLUTION OF 3 ML OF NORMAL SALINE WITH DEPO-MEDROL 80 MG WAS INJECTED SLOWLY FOLLOWING PATIENT FEEDBACK. THERE WAS NO EVIDENCE OF BLOOD, PARESTHESIA OR CEREBROSPINAL FLUID DURING THE PROCEDURE. EBL LESS THAN 5 ML. THE PATIENT WAS SENT TO THE RECOVERY ROOM. THE PATIENT WAS MOVING THE EXTREMITIES AND DOING WELL. THERE WAS NO COMPLICATION DURING THE PROCEDURE. FLUOROSCOPY TIME WAS 12 SECONDS POST PROCEDURE NOTE THE PATIENT WILL BE SEEN IN A FOLLOW UP IN THE NEXT FEW WEEKS. I AM LOOKING FOR LONG LASTING RELIEF FOR THE PATIENT WITH THIS INTERVENTION. INSTRUCTIONS WERE GIVEN, QUESTIONS WERE ANSWERED, AND THE PATIENT EXPRESSED UNDERSTANDING AND AGREES WITH THE PLAN. THE PATIENT IS AWARE TO STAY HOME FOR THE NEXT WEEK, IF POSSIBLE, DUE TO COVID-19. I, LARRY ASHER, DOCUMENTED THE ABOVE INFORMATION ACTING A SCRIBE FOR DR. JOHN. I HAVE REVIEWED THE ABOVE DOCUMENT, WRITTEN BY LARRY ASHER, STRUCTURAL IRONWORKER, AND I VERIFY THAT IT IS ACCURATE PROCEDURE CODES 06539 CERVICAL/THORACIC W/ IMAGING DISPOSITION & COMMUNICATION FOLLOW UP F/UP WITH MANAGER MOLECULAR (REASON: POST LORENZO) ELECTRONICALLY SIGNED BY LISY JOHN MD, MD ON 04/02/2020 AT 04:23 PM EDT DISCLAIMER : THIS IS A VISIT SUMMARY EXTRACTED FROM THE [employer] CHART. IT IS NOT A COPY OF THE [employer] PROGRESS NOTE. LYNDSAY
== END ==
LOC: M PAIN 12:45
PROVIDERS: ATTEND Anesthesiology
DX: M50.10 Cervical disc disorder with radiculopathy, unspecified cervical region (principal)
CPT/HCPCS: 62321; J1030; Q9967

== ENCOUNTER → 2020-04-28 | Outpatient (CLI) | payer OTHER ==
[~2020-04-28] MED LIST changes: -ISOVUE-M 300 61% 15ML VIAL As Ordered ONE; -LIDOCAINE 1% SDV 30ML VIAL As Ordered ONE; -diazePAM 5 MG TAB As Ordered ONE; -methylPREDNISolone SUSP 40 MG/ML (DEPO-medrol) VIAL (J1030) As Ordered ONE; -oxyCODONE 5MG TAB As Ordered ONE
--- NOTE | 2020-04-30 02:08 | ECWPNPC ---
PATIENT NAME: CORY JEFFERY : 1965 GENDER: MALE VISIT DATE: 04/28/2020 DISCHARGE DATE: 04/28/20 1357 VISIT LOCKED DATE TIME: PHYSICIAN: RACHNA HUITRON RESOURCE: RACHNA HUITRON REASON FOR APPOINTMENT 1. POST LORENZO HISTORY OF PRESENT ILLNESS GENERAL: - 54-YEAR-OLD MALE IN FOR POST LORENZO FOLLOW-UP. HE FEELS THE PROCEDURE WAS VERY SUCCESSFUL RATING HIS PAIN PREPROCEDURE AT A 5-6 OUT OF 10 AND POSTPROCEDURE AT A 2 OUT OF 10. HE FURTHER STATES THE PROCEDURE CONTINUES TO HELP HIM TODAY. PATIENT DOES HAVE COMPLAINTS OF RIGHT ILIOINGUINAL PAIN. PATIENT HAS HAD GENITOFEMORAL NERVE BLOCKS DONE IN THE PAST WITH GOOD RESULTS AND WE WILL DISCUSS REPEAT PROCEDURES TODAY. FALL RISK SCREENING: SCREENING :NO FALLS REPORTED IN THE LAST YEAR PAIN SCREENING: PATIENT HAS A COMPLAINT OF ACUTE OR CHRONIC PAIN :YES PRE-PROCEDURE-/5-10, [id number]-6/10, TODAY-11/19 LOCATION OF PAIN:NECK INTENSITY OF PAIN (SCALE OF 1 TO 10):2 WHAT DOES YOUR PAIN FEEL LIKE:ACHING DURATION:CONTINOUS, CONSTANT, ALL DAY PAIN IS INCREASED BY:ACTIVITIES PAIN IS DECREASED BY:USE OF PAIN MEDICATIONS PAIN HAS INTERFERED WITH THE FOLLOWING:MOOD, HOUSEWORK, RELATIONSHIP WITH OTHERS, ENJOYMENT OF LIFE PLAN/GOALS/TREATMENT/INTERVENTION/FOLLOW UP:SEE PLAN NURSING NOTE: PT. STATED PROCEDURE DID HELP- PT. WANTS TO DISCUSS NERVE BLOCK TO THE GROIN. PAIN CENTER INTAKE QUESTIONS: DO YOU HAVE A HISTORY OF MRSA? :NO DO YOU TAKE A BLOOD THINNERS? :NO DO YOU HAVE ANY BLEEDING DISORDERS? :NO ANY NEW NUMBNESS OR WEAKNESS IN YOUR LEGS OR ARMS? :NO ANY PACEMAKER,DEFIBRILLATOR, OR DORSAL COLUMN STIMULATOR? :NO DO YOU HAVE ANY RASHES OR OPEN SORES? :NO ARE YOU ALLERGIC TO IV DYE? :NO ARE YOU DIABETIC? :NO ANY NEW PROBLEMS WITH YOUR MEDICATIONS? :NO HAVE YOU RECEIVED A VACCINE IN THE PAST 30 DAYS? :NO DO YOU PLAN TO RECEIVE A VACCINE IN THE NEXT 21 DAYS? :NO DO YOU NEED ANY PRESCRIPTION? :NO DO YOU TAKE ANY IMMUNOSUPPRESSIVE MEDICATIONS? :NO IS THERE A CHANCE YOU COULD BE ? :NO ARE YOU BREAST FEEDING? :NO CURRENT MEDICATIONS TAKING METOPROLOL SUCCINATE 100 MG TABLET EXTENDED RELEASE 1 CAPSULE ORALLY ONCE A DAY, NOTES: 04/02 730 TAKING PROPECIA 1 MG TABLET 1 TABLET ORALLY ONCE A DAY, NOTES: 04/02 730 TAKING XIIDRA 5 % SOLUTION 1 DROP INTO AFFECTED EYE OPHTHALMIC TWICE A DAY, NOTES: 1 WEEK AGO TAKING GABAPENTIN 100 MG CAPSULE ORALLY 3 TIMES A DAY, NOTES: 04/02 730 NOT-TAKING TRAMADOL HCL 50 MG TABLET 1 TABLET NEEDED ORALLY Q8H PRN MDD3, NOTES: 04/02 730 NOT-TAKING ROGAINE 2 % SOLUTION 1 ML TO AFFECTED AREA EXTERNALLY TWICE A DAY NOT-TAKING MUCINEX 600 MG TABLET EXTENDED RELEASE 1 TABLET NEEDED ORALLY EVERY 12 HRS MEDICATION LIST REVIEWED AND RECONCILED WITH THE PATIENT PAST MEDICAL HISTORY HYPERTENSION HISTORY OF KIDNEY STONES HERNIATED DDD LUMBAR L5-S1 NECK PAIN ILIOINGUINAL HERNIA REPAIR TWICE ON EACH SIDE/ NEURALGIA CHRONIC PAIN WITH DR JOHN PELLUCID MARGINAL DEGENERATION FIBROMYALGIA PTSD DEPRESSION DISCITUS SPINAL STENOSIS ALLERGIES POISON MERT: RASH AND ITCHING - ALLERGY CYMBALTA: MENTAL DISTRESS - SIDE EFFECTS SURGICAL HISTORY AMPUTATION LEFT PINKY FINGER 05/1970 LEFT INGUINIAL HERNIA REPAIR 03/1996 RIGHT INGUINIAL HERNIA REPAIR 04/2002 RIGHT SHOULDER ROTATOR CUFF REPAIR AND CLAVICULAR RESECTION AND REPAIR OF TEAR 04/2009 AND 04/2010 BILATERAL INGUINIAL REPAIR 2011 LEFT PLICA REMOVAL 2004 AND 2010 LEFT WRIST CARPUL TUNNEL REPAIR 2012 LUMBAR DISCECTOMY L5-S1 2013 FAMILY HISTORY FATHER: , DIAGNOSED WITH OTHER MALIGNANT NEOPLASM OF UNSPECIFIED SITE MOTHER: ALIVE, OTHER MALIGNANT NEOPLASM OF UNSPECIFIED SITE PATERNAL GRAND FATHER: RHEUMATOID / PSORIATIC ARTHRITIS PATERNAL GRAND MOTHER: RHEUMATOID SISTER: LUPUS, DIAGNOSED WITH OTHER MALIGNANT NEOPLASM OF UNSPECIFIED SITE 1 SISTER(S) - HEALTHY. NEICE- LUPUS\\\\N\\\\NPATERNAL AUNTS- RHEUMATOID. SOCIAL HISTORY GENERAL: TOBACCO USE ARE YOU A:NONSMOKER LATEX QUESTIONNAIRE LATEX ALLERGY : HAVE YOU EVER DEVELOPED ANY TYPE OF REACTION AFTER HANDLING LATEX PRODUCTS SUCH RUBBER GLOVES, CONDOMS, DIAPHRAGMS, BALLOONS, SOCKS, OR UNDERWEAR?NO LATEX ALLERGY : HAVE YOU EVER DEVELOPED ANY TYPE OF REACTION DURING OR AFTER DENTAL APPOINTMENT, VAGINAL/RECTAL EXAMINATION, SURGICAL PROCEDURE, OR ANY OTHER EXPOSURE?NO LATEX RISK : HAVE YOU EVER HAD ANY DIFFICULTY BREATHING OR HIVES AFTER EATING OR HANDLING ANY FRUITS, OR VEGETABLES; SUCH KIWI, BANANAS, STONE FRUITS, OR CHESTNUTSNO LATEX RISK : DO YOU HAVE A PREVIOUS PERSONAL HISTORY OF MORE THAN NINE SURGERIES, SPINA BIFIDA, OR REPEATED CATHERIZATIONS? YES - PLEASE INDICATE : > 9 SURGERIES LATEX RISK : ARE YOU FREQUENTLY EXPOSED TO LATEX PRODUCTS IN YOUR OCCUPATION?NO DATE ASKED : 04/28/2020 ALCOHOL SCREENING DID YOU HAVE A DRINK CONTAINING ALCOHOL IN THE PAST YEAR?YES HOW OFTEN DID YOU HAVE SIX OR MORE DRINKS ON ONE OCCASION IN THE PAST YEAR?NEVER (0 POINTS) HOW MANY DRINKS DID YOU HAVE ON A TYPICAL DAY WHEN YOU WERE DRINKING IN THE PAST YEAR?1 OR 2 (0 POINTS) HOW OFTEN DID YOU HAVE A DRINK CONTAINING ALCOHOL IN THE PAST YEAR?TWO TO FOUR TIMES A MONTH (2 POINTS) POINTS2 INTERPRETATIONNEGATIVE RECREATIONAL DRUG USE DRUG USE?NO CAFFEINE CAFFEINE USE?YES COFFEE HOW OFTEN AND HOW MUCH? 2 CUPS PER DAY HIV / HEP-C SCREENING HIV TEST OFFERED TO PATIENT:NO HEP-C TEST OFFERED TO PATIENT:NO ZOROASTRIAN [id number] JEW LANGUAGE LANGUAGES SPOKEN:SLOVENIAN EDUCATION LEVEL OF EDUCATION:FINISHED COLLEGE LEARNING BARRIERS / SPECIAL NEEDS CHANGE FROM LAST VISIT?NO BARRIERS TO LEARNING?NO HEARING IMPAIRED?NO TINNITIS VISION IMPAIRED?YES COGNITIVELY IMPAIRED?NO :CORRECTIVE LENSES READINESS TO LEARN?YES LEARNING PREFERENCES?NO LEARNING CAPABILITIES PRESENT?YES EMOTIONAL BARRIERS?NO SPECIAL DEVICES?NO POLYETHYLENE COMBINER NEEDED?NO DOMESTIC VIOLENCE DO YOU FEEL SAFE IN YOUR ENVIRONMENT?YES 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 EXERCISE: TREADMILL AND PADDLEBOARD. MARITAL STATUS: SINGLE. OTHERS AT HOME: FATHER AND GIRLFRIEND. PAIN CLINIC PFS, CLERGY, PUBLIC HEALTH REFERRALS PFS REFERRAL NEEDED?NO CLERGY REFERRAL NEEDED?NO PUBLIC HEALTH REFERRAL NEEDED?NO HAS THE PATIENT BEEN EDUCATED REGARDING HIS/HER PLAN OF CARE?YES HAS THE PATIENT BEEN EDUCATED REGARDING PAIN, THE RISK FOR PAIN, THE IMPORTANCE OF EFFECTIVE PAIN MANAGEMENT, AND THE PAIN ASSESSMENT PROCESS?YES ADVANCE DIRECTIVE ADVANCE DIRECTIVE DISCUSSED WITH PATIENT:YES 04/02/20 PT DOES NOT HAVE ANY ADVANCED DIRECTIVES AND HE DECLINES INFORMATION ON HCP AT THIS TIME. HOSPITALIZATION/MAJOR DIAGNOSTIC PROCEDURE SEE ABOVE - SURGERIES REVIEW OF SYSTEMS CONSTITUTIONAL: ANY RECENT FEVER NO . CHILLS NO . WEIGHT CHANGE OF UNKNOWN REASONS NO . GASTROENTEROLOGY: NEW UNEXPLAINABLE CHANGES IN BOWEL CONTROL NO . CONSTIPATION NO . GENITOURINARY: ANY NEW CHANGE IN BLADDER CONTROL? NO . NEUROLOGY: NEW ONSET DIZZINESS OR NEUROLOGICAL CHANGES NOT MENTIONED NO . NEW NUMBNESS OR PAIN PATTERNS NOT MENTIONED AND PERTINENT TO TODAY'S VISIT NO . CARDIOLOGY: NEW CHEST PRESSURE NO . NEW CHEST PAIN NO . RESPIRATORY: UNEXPLAINABLE COUGH NO . NEW SHORTNESS OF BREATH NO . 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 EXAMINATION GENERAL EXAMINATION: GENERALNO ACUTE DISTRESS, WELL NOURISHED AND HYDRATED. PSYCHAPPROPRIATE MOOD AND AFFECT . LUNGS:CLEAR TO AUSCULTATION BILATERALLY, NO WHEEZES, RHONCHI, RALES. HEART:NO MURMURS, REGULAR RATE AND RHYTHM. 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 CLINICAL NOTES: 54-YEAR-OLD MALE IN FOR POST LORENZO FOLLOW-UP. GIVEN PRESENTING SYMPTOMS RECOMMEND RIGHT SIDE GENITOFEMORAL NERVE BLOCK WITH POSTPROCEDURAL FOLLOW-UP. PATIENT HAS EXPRESSED UNDERSTANDING OF AND WAS IN AGREEMENT WITH TREATMENT PLAN. GIVEN TIME TO ASK QUESTIONS AND EXPRESS CONCERNS. PROCEDURE CODES FA211 ESTABILISHED PATIENT [facility] FAC[facility] CHARGE DISPOSITION & COMMUNICATION FOLLOW UP POSTPROCEDURE (REASON: RIGHT GENITOFEMORAL NERVE BLOCK) ELECTRONICALLY SIGNED BY BOGDAN PRADHAN ON 04/29/2020 AT 03:02 PM EDT DISCLAIMER : THIS IS A VISIT SUMMARY EXTRACTED FROM THE [employer] CHART. IT IS NOT A COPY OF THE [employer] PROGRESS NOTE. LYNDSAY
== END ==
LOC: M PAIN 13:15
PROVIDERS: ATTEND Family Medicine
DX: G58.8 Other specified mononeuropathies (principal); M50.10 Cervical disc disorder with radiculopathy, unspecified cervical region

== ENCOUNTER → 2020-05-15 | Outpatient (POV) | payer OTHER ==
[~2020-05-15] MED LIST changes: +BUPIVACAINE HCL 0.25% 30ML VIAL ONE; +LIDOCAINE 1% SDV 30ML VIAL ONE; +TRIAMCINOLONE ACETONIDE SUSP 40 MG/ML VIAL (J3301) ONE; +diazePAM 5 MG TAB ONE; +oxyCODONE 5MG TAB ONE
== END ==
LOC: M PAIN 11:15
PROVIDERS: ATTEND Anesthesiology
DX: G58.8 Other specified mononeuropathies (principal)

== ENCOUNTER → 2020-06-12 | Outpatient (CLI) | payer OTHER ==
[~2020-06-12] MED LIST changes: -BUPIVACAINE HCL 0.25% 30ML VIAL ONE; -LIDOCAINE 1% SDV 30ML VIAL ONE; -TRIAMCINOLONE ACETONIDE SUSP 40 MG/ML VIAL (J3301) ONE; -diazePAM 5 MG TAB ONE; -oxyCODONE 5MG TAB ONE
== END ==
LOC: M PAIN 11:14
PROVIDERS: ATTEND Family Medicine
DX: G57.81 Other specified mononeuropathies of right lower limb (principal)

== ENCOUNTER → 2020-06-19 | Outpatient (CLI) | payer OTHER | LOC: M LABSMTC 14:01 | PROVIDERS: ATTEND Anesthesiology | DX: Z20.828 Contact with and (suspected) exposure to other viral communicable diseases (principal) | CPT/HCPCS: C9803; U0003 ==

== ENCOUNTER → 2020-07-02 | Outpatient (REF) | payer OTHER ==
[2020-07-02 13:21] LABS: BASO % 0.4 % (0.0-1.0); EOS # 0.1 10^3/uL (0.0-0.5); EOS % 1.6 % (0.0-3.0); HEMATOCRIT 47.6 % (42.0-52.0); HEMOGLOBIN 16.4 g/dl (13.5-17.5); LYMPH # 1.7 10^3/uL (1.5-5.0); MEAN CORPUSCULAR HEMOGLOBIN 32.2 pg (27.0-33.0); MEAN CORPUSCULAR HGB CONC 34.5 g/dl (32.0-36.5); MEAN CORPUSCULAR VOLUME 93.3 fl (80.0-96.0); MONO # 0.7 10^3/uL (0.0-0.8); MONO % 8.2 % (0.0-5.0); NEUTROPHILS # 5.5 10^3/uL (1.5-8.5); NEUTROPHILS % 68.4 % (36.0-66.0); PLATELET COUNT, AUTOMATED 269 10^3/uL (150-450)
[2020-07-02 13:28] LABS: ALBUMIN 4.1 GM/DL (3.2-5.2); ALT/SGPT 36 U/L (12-78); BLOOD UREA NITROGEN 11 MG/DL (7-18); CALCIUM LEVEL 9.3 MG/DL (8.5-10.1); CARBON DIOXIDE LEVEL 30 MEQ/L (21-32); CHLORIDE LEVEL 106 MEQ/L (98-107); CHOLESTEROL LEVEL 199 MG/DL (<200); CHOLESTEROL RISK RATIO 4.145 (<5); CREATININE FOR GFR 0.93 MG/DL (0.70-1.30); GLOMERULAR FILTRATION RATE > 60.0 (>56); GLUCOSE, FASTING 95 MG/DL (70-100); HDL CHOLESTEROL 48 MG/DL (>40); LDL CHOLESTEROL 119 MG/DL (<100); NON-HDL-C 151 MG/DL; POTASSIUM SERUM 4.4 MEQ/L (3.5-5.1); SODIUM LEVEL 141 MEQ/L (136-145); TOTAL PROTEIN 6.9 GM/DL (6.4-8.2); TRIGLYCERIDES LEVEL 159 MG/DL (<150)
== END ==
LOC: M LAB REF 12:43
PROVIDERS: ATTEND Physician Assistant
DX: Z68.33 Body mass index [BMI] 33.0-33.9, adult (principal); E66.09 Other obesity due to excess calories; I10 Essential (primary) hypertension

== ENCOUNTER → 2020-07-10 | Outpatient (CLI) | payer OTHER | LOC: M LABSMTC 13:10 | PROVIDERS: ATTEND Anesthesiology | DX: Z20.828 Contact with and (suspected) exposure to other viral communicable diseases (principal) | CPT/HCPCS: C9803; U0003 ==

== ENCOUNTER → 2020-07-16 | Outpatient (CLI) | payer OTHER ==
[~2020-07-16] MED LIST changes: +BUPIVACAINE HCL 0.25% 30ML VIAL As Ordered ONE; +ISOVUE-M 300 61% 15ML VIAL As Ordered ONE; +LIDOCAINE 1% SDV 30ML VIAL As Ordered ONE; +TRIAMCINOLONE ACETONIDE SUSP 40 MG/ML VIAL (J3301) As Ordered ONE; +diazePAM 5 MG TAB As Ordered ONE; +oxyCODONE 5MG TAB As Ordered ONE
--- NOTE | 2020-07-21 13:43 | ECWPNPC ---
PATIENT NAME: CORY JEFFERY : 1965 GENDER: MALE VISIT DATE: 07/16/2020 DISCHARGE DATE: 07/16/20 1602 VISIT LOCKED DATE TIME: PHYSICIAN: LISY JOHN MD RESOURCE: LISY JOHN MD REASON FOR APPOINTMENT 1. ILLIOINGUINAL NERVE BLK HISTORY OF PRESENT ILLNESS PAIN CENTER INTAKE QUESTIONS: DO YOU HAVE A HISTORY OF MRSA? :NO DO YOU TAKE A BLOOD THINNERS? :NO DO YOU HAVE ANY BLEEDING DISORDERS? :NO ANY NEW NUMBNESS OR WEAKNESS IN YOUR LEGS OR ARMS? :NO ANY PACEMAKER,DEFIBRILLATOR, OR DORSAL COLUMN STIMULATOR? :NO DO YOU HAVE ANY RASHES OR OPEN SORES? :NO ARE YOU ALLERGIC TO IV DYE? :NO ARE YOU DIABETIC? :NO ANY NEW PROBLEMS WITH YOUR MEDICATIONS? :NO HAVE YOU RECEIVED A VACCINE IN THE PAST 30 DAYS? :NO DO YOU PLAN TO RECEIVE A VACCINE IN THE NEXT 21 DAYS? :NO DO YOU TAKE ANY IMMUNOSUPPRESSIVE MEDICATIONS? :NO ANY HISTORY OF SEIZURES? :NO ANY HISTORY OF CARDIAC ISSUES OR EVENTS? :NO DO YOU HAVE SLEEP APNEA? :YES DO YOU WEAR A CPAP? NO CPAP, CONTROLLED WITH WEIGHT CONTROL ANY RECENT HEAD INJURY? :NO DO YOU HAVE ANY NEW INFECTIONS? :NO IS THERE A CHANCE YOU COULD BE ? :NO ARE YOU BREAST FEEDING? :NO WHEN DID YOU LAST EAT? : 07/16 515 WHEN DID YOU LAST DRINK? : 07/16 900 WHAT DID YOU LAST DRINK? : WATER NAME OF PERSON DRIVING YOU HOME? : FRIEND-MAYURI DO YOU HAVE ANY OTHER QUESTIONS OR CONCERNS? : NONE GENERAL: -. FALL RISK SCREENING: SCREENING :TWO OR MORE FALLS WITH INJURY IN THE PAST YEAR CATCHES HIS TOE DUE TO NERVE DAMAGE RIGHT LEG PAIN SCREENING: PATIENT HAS A COMPLAINT OF ACUTE OR CHRONIC PAIN :YES LOCATION OF PAIN:OTHER: RIGHT INGUINAL AREA INTENSITY OF PAIN (SCALE OF 1 TO 10):6 AVERAGE 5-6 WHAT DOES YOUR PAIN FEEL LIKE:ACHING, BURNING, CONTINOUS, TENDER, SORE DURATION:CONTINOUS, CONSTANT, AWAKENS FROM SLEEP PAIN IS INCREASED BY:ACTIVITIES LIFTING, SITTING PAIN IS DECREASED BY: LYING PRONE NURSING NOTE: -. CURRENT MEDICATIONS TAKING METOPROLOL SUCCINATE 100 MG TABLET EXTENDED RELEASE 1 CAPSULE ORALLY ONCE A DAY, NOTES: 07/16 515 TAKING PROPECIA 1 MG TABLET 1 TABLET ORALLY ONCE A DAY, NOTES: 07/16 515 TAKING XIIDRA 5 % SOLUTION 1 DROP INTO AFFECTED EYE OPHTHALMIC TWICE A DAY, NOTES: 07/11 TAKING GABAPENTIN 100 MG CAPSULE ORALLY 3 TIMES A DAY, NOTES: 07/16 515 TAKING LEXAPRO 10 MG TABLET 1 TABLET ORALLY ONCE A DAY, NOTES: 07/16 515 TAKING ATORVASTATIN CALCIUM 10 MG TABLET 1 TABLET ORALLY ONCE A DAY, NOTES: 07/16 515 NOT-TAKING TRAMADOL HCL 50 MG TABLET 1 TABLET NEEDED ORALLY Q8H PRN MDD3, NOTES: 04/02 07 NOT-TAKING ROGAINE 2 % SOLUTION 1 ML TO AFFECTED AREA EXTERNALLY TWICE A DAY NOT-TAKING MUCINEX 600 MG TABLET EXTENDED RELEASE 1 TABLET NEEDED ORALLY EVERY 12 HRS MEDICATION LIST REVIEWED AND RECONCILED WITH THE PATIENT PAST MEDICAL HISTORY HYPERTENSION HISTORY OF KIDNEY STONES HERNIATED DDD LUMBAR L5-S1 NECK PAIN ILIOINGUINAL HERNIA REPAIR TWICE ON EACH SIDE/ NEURALGIA CHRONIC PAIN WITH DR JOHN PELLUCID MARGINAL DEGENERATION FIBROMYALGIA PTSD DEPRESSION DISCITUS SPINAL STENOSIS CARPAL TUNNEL BILATERAL FRACTURED LEFT CLAVICAL FRACTURE LEFT HUMERAL HEAD ALLERGIES POISON MERT: RASH AND ITCHING - ALLERGY CYMBALTA: MENTAL DISTRESS - SIDE EFFECTS SURGICAL HISTORY AMPUTATION LEFT PINKY FINGER 05/1970 LEFT INGUINIAL HERNIA REPAIR 03/1996 RIGHT INGUINIAL HERNIA REPAIR 04/2002 RIGHT SHOULDER ROTATOR CUFF REPAIR AND CLAVICULAR RESECTION AND REPAIR OF TEAR 04/2009 AND 04/2010 BILATERAL INGUINIAL REPAIR 2012 LEFT PLICA REMOVAL 2004 AND 2010 LEFT WRIST CARPAL TUNNEL REPAIR 2012 LUMBAR DISCECTOMY L5-S1 2013 FAMILY HISTORY FATHER: , DIAGNOSED WITH OTHER MALIGNANT NEOPLASM OF UNSPECIFIED SITE MOTHER: ALIVE, OTHER MALIGNANT NEOPLASM OF UNSPECIFIED SITE PATERNAL GRAND FATHER: RHEUMATOID / PSORIATIC ARTHRITIS PATERNAL GRAND MOTHER: RHEUMATOID SISTER: LUPUS, DIAGNOSED WITH OTHER MALIGNANT NEOPLASM OF UNSPECIFIED SITE 1 SISTER(S) - HEALTHY. NEICE- LUPUS\\\\N\\\\NPATERNAL AUNTS- RHEUMATOID. SOCIAL HISTORY GENERAL: TOBACCO USE ARE YOU A:NONSMOKER LATEX QUESTIONNAIRE LATEX ALLERGY : HAVE YOU EVER DEVELOPED ANY TYPE OF REACTION AFTER HANDLING LATEX PRODUCTS SUCH RUBBER GLOVES, CONDOMS, DIAPHRAGMS, BALLOONS, SOCKS, OR UNDERWEAR?NO LATEX ALLERGY : HAVE YOU EVER DEVELOPED ANY TYPE OF REACTION DURING OR AFTER DENTAL APPOINTMENT, VAGINAL/RECTAL EXAMINATION, SURGICAL PROCEDURE, OR ANY OTHER EXPOSURE?NO LATEX RISK : HAVE YOU EVER HAD ANY DIFFICULTY BREATHING OR HIVES AFTER EATING OR HANDLING ANY FRUITS, OR VEGETABLES; SUCH KIWI, BANANAS, STONE FRUITS, OR CHESTNUTSNO LATEX RISK : DO YOU HAVE A PREVIOUS PERSONAL HISTORY OF MORE THAN NINE SURGERIES, SPINA BIFIDA, OR REPEATED CATHERIZATIONS? YES - PLEASE INDICATE : > 9 SURGERIES LATEX RISK : ARE YOU FREQUENTLY EXPOSED TO LATEX PRODUCTS IN YOUR OCCUPATION?NO DATE ASKED : 07/16/2020 ALCOHOL SCREENING DID YOU HAVE A DRINK CONTAINING ALCOHOL IN THE PAST YEAR?YES HOW OFTEN DID YOU HAVE SIX OR MORE DRINKS ON ONE OCCASION IN THE PAST YEAR?NEVER (0 POINTS) HOW MANY DRINKS DID YOU HAVE ON A TYPICAL DAY WHEN YOU WERE DRINKING IN THE PAST YEAR?1 OR 2 (0 POINTS) HOW OFTEN DID YOU HAVE A DRINK CONTAINING ALCOHOL IN THE PAST YEAR?TWO TO FOUR TIMES A MONTH (2 POINTS) POINTS2 INTERPRETATIONNEGATIVE RECREATIONAL DRUG USE DRUG USE?NO CAFFEINE CAFFEINE USE?YES COFFEE HOW OFTEN AND HOW MUCH? 2 CUPS PER DAY HIV / HEP-C SCREENING HIV TEST OFFERED TO PATIENT:NO HEP-C TEST OFFERED TO PATIENT:NO JUDAISM [id number] [employer]IST LANGUAGE LANGUAGES SPOKEN:MALTESE EDUCATION LEVEL OF EDUCATION:FINISHED COLLEGE LEARNING BARRIERS / SPECIAL NEEDS CHANGE FROM LAST VISIT?NO BARRIERS TO LEARNING?NO HEARING IMPAIRED?NO TINNITIS VISION IMPAIRED?YES :CORRECTIVE LENSES COGNITIVELY IMPAIRED?NO READINESS TO LEARN?YES LEARNING PREFERENCES?NO LEARNING CAPABILITIES PRESENT?YES EMOTIONAL BARRIERS?NO SPECIAL DEVICES?NO CONCILIATION COURT JUDGE NEEDED?NO DOMESTIC VIOLENCE DO YOU FEEL SAFE IN YOUR ENVIRONMENT?YES 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 EXERCISE: TREADMILL AND PADDLEBOARD. MARITAL STATUS: SINGLE. OTHERS AT HOME: FATHER AND GIRLFRIEND. PAIN CLINIC PFS, CLERGY, PUBLIC HEALTH REFERRALS PFS REFERRAL NEEDED?NO CLERGY REFERRAL NEEDED?NO PUBLIC HEALTH REFERRAL NEEDED?NO HAS THE PATIENT BEEN EDUCATED REGARDING HIS/HER PLAN OF CARE?YES HAS THE PATIENT BEEN EDUCATED REGARDING PAIN, THE RISK FOR PAIN, THE IMPORTANCE OF EFFECTIVE PAIN MANAGEMENT, AND THE PAIN ASSESSMENT PROCESS?YES ADVANCE DIRECTIVE ADVANCE DIRECTIVE DISCUSSED WITH PATIENT:YES 07/16/20 PT DOES NOT HAVE ANY ADVANCED DIRECTIVES AND HE DECLINES INFORMATION ON HCP AT THIS TIME. HOSPITALIZATION/MAJOR DIAGNOSTIC PROCEDURE SEE ABOVE - SURGERIES VITAL SIGNS WT 236.6 LBS, HT 70", BMI 33.94 INDEX, BP 157/93 MM HG, HR 60 /MIN, RR 18 /MIN, TEMP 96.9 F, OXYGEN SAT % 97%, NA INITIALS SC 13:47, REVIEWED BY: AD. EXAMINATION GENERAL EXAMINATION: THE PATIENT IS ALERT, ORIENTED TIMES THREE AND COOPERATIVE. HEART SHOWS REGULAR RHYTHM, NO MURMURS AND NO GALLOPS. LUNGS ARE CLEAR TO AUSCULTATION. ASSESSMENTS INGUINAL NEURALGIA - M79.2 (PRIMARY) TREATMENT OTHERS CLINICAL NOTES: 07/15/20 @ 12:15 SALONI LARA WAXING MACHINE OPERATOR. PROCEDURES PAIN NURSING RECORD PRE-PROCEDURE IV SITE N/A, PRE-PROCEDURE ORAL MEDICATIONS VALIUM 10 MG PO @ 1446 BY Titi ZIMMERMAN RN OXYCODONE 10 MG PO @ 1446 BY Titi ZIMMERMAN RN PROCEDURE IN ROOM 1508, PHYSICIAN IN ROOM 1520, START 1528, FINISH 1537, PHYSICIAN OUT OF ROOM 1542, OUT OF ROOM 1547, STEROID KENALOG, O2 RA, ECG NORMAL SINUS, PATIENT SHIELDED NO, SAFETY STRAP YES, PREP CHLOROPREP BY DR. JOHN, IV INFUSED N/A, DRESSING TEGADERM BY DR. JOHN LOC: IRVIN,JOSEPH 07/16/2020 2:49:06 PM > 1. ALERT, ORIENTED RESP: IRVIN,JOSEPH 07/16/2020 2:49:10 PM > 1. REGULAR, NO DYSPNEA COLOR: IRVIN,JOSEPH 07/16/2020 2:49:13 PM > 1. PINK SKIN: IRVIN,JOSEPH 07/16/2020 2:49:17 PM > 1. WARM, DRY POSITION: IRVIN,JOSEPH 07/16/2020 3:08:37 PM > 2. SUPINE VITALS: IRVIN,JOSEPH 07/16/2020 3:10:15 PM > 131/82,63,16, 95% IRVIN,JOSEPH 07/16/2020 3:24:09 PM > 120/74, 65,16, 94% IRVIN,JOSEPH 07/16/2020 3:38:40 PM > 125/76,62, 16, 92% IRVIN,JOSEPH 07/16/2020 3:45:43 PM > 130/78,66,16, 96% DISCHARGE: POST PAIN 12/17-RIGHT INGUINAL AREA, DRESSING SITE DRY AND INTACT, IV N/A, GAIT STEADY, TEACHING COMPLETED, PATIENT ACKNOWLEDGES UNDERSTANDING YES, PATIENT DISCHARGED AT 1602 : 1555 POST PROCEDURE AND COVID SYMPTOM MONITORING INSTRUCTIONS GIVEN TO AND REVIEWED WITH PT AND HE VERBALIZED UNDERSTANDING. AD PRE PROCEDURE DIAGNOSIS RIGHT ILIOINGUINAL NEURALGIA POST PROCEDURE DIAGNOSIS RIGHT ILIOINGUINAL NEURALGIA PROCEDURE RIGHT ILIOINGUINAL NERVE BLOCK SURGEON DR. LISY JOHN ANESTHESIA LOCAL PRE PROCEDURE NOTE THE PATIENT IS SUFFERING OF INGUINAL PAIN AND NEURALGIA. I REVIEWED THE CHART AND DISCUSSED THE CASE WITH THE PATIENT. I DISCUSSED THAT THE USE OF STEROIDS MAY CONTRIBUTE TO IMMUNOSUPPRESSION OF THE PATIENT'S BODY AGAINST INFECTIONS SUCH COVID-19. THE PATIENT IS AWARE OF THE POTENTIAL COMPLICATIONS ASSOCIATED WITH THIS VIRUS, INCLUDING, BUT NOT LIMITED TO, . AFTER DISCUSSING RISK, BENEFITS AND ALTERNATIVES ASSOCIATED WITH THE PROCEDURE, THE PATIENT UNDERSTANDS AND AGREES TO MOVE FORWARD. THE PATIENT IS COVID-19 NEGATIVE. DESCRIPTION OF PROCEDURE AFTER CONSENT WAS SIGNED THE PATIENT WAS TAKEN TO THE PROCEDURE ROOM AND PLACED IN THE SUPINE POSITION. THE RIGHT INGUINAL AREA WAS CLEANED WITH CHLORAPREP SOLUTION AND DRAPED ASEPTICALLY. A TIMEOUT WAS PERFORMED WHERE LATERALITY AND THE SITE OF THE PROCEDURE WERE CHECKED AND CONFIRMED WITH EVERYONE IN THE ROOM. THE PROCEDURE WAS DONE UNDER STERILE STANDARD TECHNIQUES. THE RIGHT SUPERIOR ANTERIOR ILIAC SPINE WAS PALPATED. I CONFIRMED AGAIN WITH EVERYONE IN THE ROOM THE LATERALITY OF THE TARGET AT 1527. LIDOCAINE WAS USED TO NUMB THE SKIN AND SUBCUTANEOUS TISSUE BELOW IT. THE ENTRY POINT WAS SELECTED 1 INCH MEDIAL AND 1 INCH INFERIOR TO THE ANTERIOR SUPERIOR ILIAC SPINE. THERE WAS NO EVIDENCE OF BLOOD, PARESTHESIA OR VISCERAL PUNCTURE. THEN A SOLUTION OF 15 ML OF BUPIVACAINE 0.125% AND KENALOG 40 MG WAS INJECTED SLOWLY APPROXIMATELY 0.5 INCHES DEEP WITH THE ASSISTANCE OF THE NERVE STIMULATOR DESCRIBED ABOVE. THE MEDICATIONS WERE VERIFIED WITH THE NURSE. THE PATIENT TOLERATED THE PROCEDURE WITHOUT COMPLICATIONS AND WAS SENT TO THE RECOVERY ROOM. ESTIMATED BLOOD LOSS WAS LESS THAN 5 ML POST PROCEDURE NOTE I WILL SEE THE PATIENT IN A FOLLOW UP IN THE NEXT FEW WEEKS. WE ARE LOOKING FOR LONG LASTING PAIN RELIEF WITH THIS INTERVENTION. INSTRUCTIONS WERE GIVEN QUESTIONS WERE ANSWERED AND THE PATIENT REPORTS UNDERSTANDING AND AGREES. I, LARRY ASHER, DOCUMENTED THE ABOVE INFORMATION ACTING A SCRIBE FOR DR. JOHN. I HAVE REVIEWED THE ABOVE DOCUMENT, WRITTEN BY LARRY ASHER, DRUM HANDLER, AND I VERIFY THAT IT IS ACCURATE PROCEDURE CODES 73060 N BLOCK INJ ILIO-ING/HYPOGI, MODIFIERS: RT DISPOSITION & COMMUNICATION FOLLOW UP FOLLOW UP WITH TREE TRIMMER (REASON: POST ILIOINGUINAL NERVE BLOCK) ELECTRONICALLY SIGNED BY LISY JOHN MD, MD ON 07/21/2020 AT 01:40 PM EDT DISCLAIMER : THIS IS A VISIT SUMMARY EXTRACTED FROM THE [employer] CHART. IT IS NOT A COPY OF THE [employer] PROGRESS NOTE. LYNDSAY
== END ==
LOC: M PAIN 14:00
PROVIDERS: ATTEND Anesthesiology
DX: M79.2 Neuralgia and neuritis, unspecified (principal); I10 Essential (primary) hypertension; F43.10 Post-traumatic stress disorder, unspecified; F32.9 Major depressive disorder, single episode, unspecified; Z79.899 Other long term (current) drug therapy; Z88.8 Allergy status to other drugs, medicaments and biological substances
CPT/HCPCS: 64425; J3301; Q9967

== ENCOUNTER → 2020-08-06 | Outpatient (CLI) | payer OTHER ==
[~2020-08-06] MED LIST changes: -BUPIVACAINE HCL 0.25% 30ML VIAL As Ordered ONE; -ISOVUE-M 300 61% 15ML VIAL As Ordered ONE; -LIDOCAINE 1% SDV 30ML VIAL As Ordered ONE; -TRIAMCINOLONE ACETONIDE SUSP 40 MG/ML VIAL (J3301) As Ordered ONE; -diazePAM 5 MG TAB As Ordered ONE; -oxyCODONE 5MG TAB As Ordered ONE
--- NOTE | 2020-08-08 03:38 | ECWPNPC ---
PATIENT NAME: CORY JEFFERY : 1965 GENDER: MALE VISIT DATE: 08/06/2020 DISCHARGE DATE: 08/06/20 1158 VISIT LOCKED DATE TIME: PHYSICIAN: RACHNA HUITRON RESOURCE: RACHNA HUITRON REASON FOR APPOINTMENT 1. POST ILIOINGUINAL NERVE BLOCK HISTORY OF PRESENT ILLNESS PAIN CENTER INTAKE QUESTIONS: 55-YEAR-OLD MALE IN FOR POST ILIOINGUINAL NERVE BLOCK FOLLOW-UP. HE FEELS THE PROCEDURE WORKED WELL OVERALL RATING HIS PAIN PREPROCEDURE AT A 5-6 OUT OF 10 AND POST PROCEDURE AT A 2 OUT OF 10. HE FURTHER STATES THE PROCEDURE CONTINUES TO HELP HIM TODAY. GENERAL: -. FALL RISK SCREENING: SCREENING :TWO OR MORE FALLS WITHOUT INJURY IN THE PAST YEAR PAIN SCREENING: PATIENT HAS A COMPLAINT OF ACUTE OR CHRONIC PAIN :YES LOCATION OF PAIN:OTHER: GROIN INTENSITY OF PAIN (SCALE OF 1 TO 10):2 WHAT DOES YOUR PAIN FEEL LIKE:SHARP DURATION:INTERMITTENT '' BURN IS ALWAYS THERE" THE SHARP IS "UNPREDICTABLE" PAIN IS INCREASED BY:OTHERS NURSING NOTE: -. CURRENT MEDICATIONS TAKING METOPROLOL SUCCINATE 100 MG TABLET EXTENDED RELEASE 1 CAPSULE ORALLY ONCE A DAY TAKING PROPECIA 1 MG TABLET 1 TABLET ORALLY ONCE A DAY TAKING XIIDRA 5 % SOLUTION 1 DROP INTO AFFECTED EYE OPHTHALMIC TWICE A DAY, NOTES: 07/11 TAKING GABAPENTIN 100 MG CAPSULE ORALLY 3 TIMES A DAY TAKING LEXAPRO 10 MG TABLET 1 TABLET ORALLY ONCE A DAY TAKING ATORVASTATIN CALCIUM 10 MG TABLET 1 TABLET ORALLY ONCE A DAY NOT-TAKING TRAMADOL HCL 50 MG TABLET 1 TABLET NEEDED ORALLY Q8H PRN MDD3, NOTES: 04/02 0730 NOT-TAKING ROGAINE 2 % SOLUTION 1 ML TO AFFECTED AREA EXTERNALLY TWICE A DAY NOT-TAKING MUCINEX 600 MG TABLET EXTENDED RELEASE 1 TABLET NEEDED ORALLY EVERY 12 HRS PAST MEDICAL HISTORY HYPERTENSION HISTORY OF KIDNEY STONES HERNIATED DDD LUMBAR L5-S1 NECK PAIN ILIOINGUINAL HERNIA REPAIR TWICE ON EACH SIDE/ NEURALGIA CHRONIC PAIN WITH DR JOHN PELLUCID MARGINAL DEGENERATION FIBROMYALGIA PTSD DEPRESSION DISCITUS SPINAL STENOSIS CARPAL TUNNEL BILATERAL FRACTURED LEFT CLAVICAL FRACTURE LEFT HUMERAL HEAD ALLERGIES POISON MERT: RASH AND ITCHING - ALLERGY CYMBALTA: MENTAL DISTRESS - SIDE EFFECTS SURGICAL HISTORY AMPUTATION LEFT PINKY FINGER 05/1970 LEFT INGUINIAL HERNIA REPAIR 03/1996 RIGHT INGUINIAL HERNIA REPAIR 04/2002 RIGHT SHOULDER ROTATOR CUFF REPAIR AND CLAVICULAR RESECTION AND REPAIR OF TEAR 04/2009 AND 04/2010 BILATERAL INGUINIAL REPAIR 2012 LEFT PLICA REMOVAL 2004 AND 2010 LEFT WRIST CARPAL TUNNEL REPAIR 2012 LUMBAR DISCECTOMY L5-S1 2013 FAMILY HISTORY FATHER: , DIAGNOSED WITH OTHER MALIGNANT NEOPLASM OF UNSPECIFIED SITE MOTHER: ALIVE, OTHER MALIGNANT NEOPLASM OF UNSPECIFIED SITE PATERNAL GRAND FATHER: RHEUMATOID / PSORIATIC ARTHRITIS PATERNAL GRAND MOTHER: RHEUMATOID SISTER: LUPUS, DIAGNOSED WITH OTHER MALIGNANT NEOPLASM OF UNSPECIFIED SITE 1 SISTER(S) - HEALTHY. NEICE- LUPUS\\\\N\\\\NPATERNAL AUNTS- RHEUMATOID. SOCIAL HISTORY GENERAL: TOBACCO USE ARE YOU A:NONSMOKER LATEX QUESTIONNAIRE LATEX ALLERGY : HAVE YOU EVER DEVELOPED ANY TYPE OF REACTION AFTER HANDLING LATEX PRODUCTS SUCH RUBBER GLOVES, CONDOMS, DIAPHRAGMS, BALLOONS, SOCKS, OR UNDERWEAR?NO LATEX ALLERGY : HAVE YOU EVER DEVELOPED ANY TYPE OF REACTION DURING OR AFTER DENTAL APPOINTMENT, VAGINAL/RECTAL EXAMINATION, SURGICAL PROCEDURE, OR ANY OTHER EXPOSURE?NO DATE ASKED : 07/16/2020 LATEX RISK : HAVE YOU EVER HAD ANY DIFFICULTY BREATHING OR HIVES AFTER EATING OR HANDLING ANY FRUITS, OR VEGETABLES; SUCH KIWI, BANANAS, STONE FRUITS, OR CHESTNUTSNO LATEX RISK : DO YOU HAVE A PREVIOUS PERSONAL HISTORY OF MORE THAN NINE SURGERIES, SPINA BIFIDA, OR REPEATED CATHERIZATIONS? YES - PLEASE INDICATE : > 9 SURGERIES LATEX RISK : ARE YOU FREQUENTLY EXPOSED TO LATEX PRODUCTS IN YOUR OCCUPATION?NO ALCOHOL SCREENING DID YOU HAVE A DRINK CONTAINING ALCOHOL IN THE PAST YEAR?YES HOW OFTEN DID YOU HAVE SIX OR MORE DRINKS ON ONE OCCASION IN THE PAST YEAR?NEVER (0 POINTS) HOW MANY DRINKS DID YOU HAVE ON A TYPICAL DAY WHEN YOU WERE DRINKING IN THE PAST YEAR?1 OR 2 (0 POINTS) HOW OFTEN DID YOU HAVE A DRINK CONTAINING ALCOHOL IN THE PAST YEAR?TWO TO FOUR TIMES A MONTH (2 POINTS) POINTS2 INTERPRETATIONNEGATIVE RECREATIONAL DRUG USE DRUG USE?NO CAFFEINE CAFFEINE USE?YES COFFEE HOW OFTEN AND HOW MUCH? 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 EXERCISE: TREADMILL AND PADDLEBOARD. MARITAL STATUS: SINGLE. OTHERS AT HOME: FATHER AND GIRLFRIEND. PAIN CLINIC PFS, CLERGY, PUBLIC HEALTH REFERRALS PFS REFERRAL NEEDED?NO CLERGY REFERRAL NEEDED?NO PUBLIC HEALTH REFERRAL NEEDED?NO HAS THE PATIENT BEEN EDUCATED REGARDING HIS/HER PLAN OF CARE?YES HAS THE PATIENT BEEN EDUCATED REGARDING PAIN, THE RISK FOR PAIN, THE IMPORTANCE OF EFFECTIVE PAIN MANAGEMENT, AND THE PAIN ASSESSMENT PROCESS?YES ADVANCE DIRECTIVE ADVANCE DIRECTIVE DISCUSSED WITH PATIENT:YES 07/16/20 PT DOES NOT HAVE ANY ADVANCED DIRECTIVES AND HE DECLINES INFORMATION ON HCP AT THIS TIME. HOSPITALIZATION/MAJOR DIAGNOSTIC PROCEDURE SEE ABOVE - SURGERIES REVIEW OF SYSTEMS CONSTITUTIONAL: ANY RECENT FEVER NO . CHILLS NO . WEIGHT CHANGE OF UNKNOWN REASONS NO . GASTROENTEROLOGY: NEW UNEXPLAINABLE CHANGES IN BOWEL CONTROL NO . CONSTIPATION NO . GENITOURINARY: ANY NEW CHANGE IN BLADDER CONTROL? NO . NEUROLOGY: NEW ONSET DIZZINESS OR NEUROLOGICAL CHANGES NOT MENTIONED NO . NEW NUMBNESS OR PAIN PATTERNS NOT MENTIONED AND PERTINENT TO TODAY'S VISIT NO . CARDIOLOGY: NEW CHEST PRESSURE NO . NEW CHEST PAIN NO . RESPIRATORY: UNEXPLAINABLE COUGH NO . NEW SHORTNESS OF BREATH NO . VITAL SIGNS WT 238.4 LBS, HT 70", BMI 34.20 INDEX, BP 138/74 MM HG, HR 64 /MIN, RR 18 /MIN, TEMP 97.1 F, OXYGEN SAT % 96%, SAFE IN ENV? (Y/N) YES, NA INITIALS SC 11:29, REVIEWED BY: KG. EXAMINATION GENERAL EXAMINATION: GENERALNO ACUTE DISTRESS, WELL NOURISHED AND HYDRATED. PSYCHAPPROPRIATE MOOD AND AFFECT . LUNGS:CLEAR TO AUSCULTATION BILATERALLY, NO WHEEZES, RHONCHI, RALES. HEART:NO MURMURS, REGULAR RATE AND RHYTHM. ASSESSMENTS OTHER CHRONIC PAIN - G89.29 (PRIMARY) SACROILIITIS - M46.1 TREATMENT OTHER CHRONIC PAIN PAIN PROCEDURE LOGDATE OF [id number]:RIGHT ILIOINGUINAL NERVE BLOCKAMOUNT OF PRE SEDATEVALIUM 10MG/OXYCODONE 10MGRESULT:PRE 5-610 POST 10 NOTES: 52-YEAR-OLD MALE IN FOR POST ILIOINGUINAL NERVE BLOCK FOLLOW-UP. GIVEN PRESENTING SYMPTOMS RECOMMEND LEFT SIJ WITH POSTPROCEDURAL FOLLOW-UP. PATIENT HAS EXPRESSED UNDERSTANDING OF AND WAS IN AGREEMENT WITH TREATMENT PLAN. GIVEN TIME TO ASK QUESTIONS AND EXPRESS CONCERNS. CLINICAL NOTES: LEFT SIJ. PROCEDURE CODES FA211 ESTABILISHED PATIENT [facility] CHARGE DISPOSITION & COMMUNICATION FOLLOW UP POSTPROCEDURE (REASON: LEFT SIJ) ELECTRONICALLY SIGNED BY BOGDAN PRADHAN ON 08/07/2020 AT 09:32 AM EDT DISCLAIMER : THIS IS A VISIT SUMMARY EXTRACTED FROM THE [employer] CHART. IT IS NOT A COPY OF THE [employer] PROGRESS NOTE. LYNDSAY
== END ==
LOC: M PAIN 11:00
PROVIDERS: ATTEND Family Medicine
DX: G89.29 Other chronic pain (principal); M46.1 Sacroiliitis, not elsewhere classified; I10 Essential (primary) hypertension; M79.7 Fibromyalgia; F43.10 Post-traumatic stress disorder, unspecified; F32.9 Major depressive disorder, single episode, unspecified; Z79.899 Other long term (current) drug therapy; Z88.8 Allergy status to other drugs, medicaments and biological substances; Z91.048 Other nonmedicinal substance allergy status

== ENCOUNTER → 2020-08-21 | Outpatient (CLI) | payer OTHER | LOC: M LABSMTC 11:56 | PROVIDERS: ATTEND Anesthesiology | DX: Z20.828 Contact with and (suspected) exposure to other viral communicable diseases (principal) ==

== ENCOUNTER → 2020-08-26 | Outpatient (CLI) | payer OTHER ==
[~2020-08-26] MED LIST changes: +BUPIVACAINE HCL 0.25% 30ML VIAL As Ordered ONE; +ISOVUE-M 300 61% 15ML VIAL As Ordered ONE; +LIDOCAINE 1% SDV 30ML VIAL As Ordered ONE; +TRIAMCINOLONE ACETONIDE SUSP 40 MG/ML VIAL (J3301) As Ordered ONE; +diazePAM 5 MG TAB As Ordered ONE; +oxyCODONE 5MG TAB As Ordered ONE
--- NOTE | 2020-08-26 17:03 | REP ---
INDICATION: LEFT SACROILIAC JOINT INJECTION. Pain COMPARISON: None. TECHNIQUE: Three C-arm views of left sacroiliac joint performed. FINDINGS: A needle overlies the left sacroiliac joint. A small amount of contrast is injected. IMPRESSION: 24 seconds of fluoroscopy time was utilized. <Electronically signed by Benjamin Aldrich > 08/26/20 [id number]
--- NOTE | 2020-08-29 01:25 | ECWPNPC ---
PATIENT NAME: CORY JEFFERY : 1965 GENDER: MALE VISIT DATE: 08/26/2020 DISCHARGE DATE: 08/26/20 1518 VISIT LOCKED DATE TIME: PHYSICIAN: LISY JOHN MD RESOURCE: LISY JOHN MD REASON FOR APPOINTMENT 1. LEFT SIJ HISTORY OF PRESENT ILLNESS GENERAL: -. FALL RISK SCREENING: SCREENING :TWO OR MORE FALLS WITH INJURY IN THE PAST YEAR PAIN SCREENING: PATIENT HAS A COMPLAINT OF ACUTE OR CHRONIC PAIN :YES LOCATION OF PAIN:LOW BACK, LEFT HIP LEFT LOWER BACK, LEFT BUTTOCK INTENSITY OF PAIN (SCALE OF 1 TO 10):5 WHAT DOES YOUR PAIN FEEL LIKE:ACHING, CONTINOUS DURATION:CONTINOUS PAIN IS INCREASED BY:ACTIVITIES SHOVELING SNOW, YARD WORK PAIN IS DECREASED BY: NOTHING REALLY HELPS RIGHT NOW NURSING NOTE: -. PAIN CENTER INTAKE QUESTIONS: DO YOU HAVE A HISTORY OF MRSA? :NO DO YOU TAKE A BLOOD THINNERS? :NO DO YOU HAVE ANY BLEEDING DISORDERS? :NO ANY NEW NUMBNESS OR WEAKNESS IN YOUR LEGS OR ARMS? :NO ANY PACEMAKER,DEFIBRILLATOR, OR DORSAL COLUMN STIMULATOR? :NO DO YOU HAVE ANY RASHES OR OPEN SORES? :NO ARE YOU ALLERGIC TO IV DYE? :NO ARE YOU DIABETIC? :NO ANY NEW PROBLEMS WITH YOUR MEDICATIONS? :NO HAVE YOU RECEIVED A VACCINE IN THE PAST 30 DAYS? :NO FLU SHOT IN MAY 2020 DO YOU PLAN TO RECEIVE A VACCINE IN THE NEXT 21 DAYS? :NO DO YOU TAKE ANY IMMUNOSUPPRESSIVE MEDICATIONS? :NO ANY HISTORY OF SEIZURES? :NO ANY HISTORY OF CARDIAC ISSUES OR EVENTS? :NO DO YOU HAVE SLEEP APNEA? :YES DO YOU WEAR A CPAP? DOES NOT HAVE TO WEAR A CPAP MACHINE ANY RECENT HEAD INJURY? :NO DO YOU HAVE ANY NEW INFECTIONS? :NO IS THERE A CHANCE YOU COULD BE ? :NO ARE YOU BREAST FEEDING? :NO WHEN DID YOU LAST EAT? : 08/26/2020499 WHEN DID YOU LAST DRINK? : 08/26/2020499 WHAT DID YOU LAST DRINK? : WATER NAME OF PERSON DRIVING YOU HOME? : NEIGHBOR- CANDY DO YOU HAVE ANY OTHER QUESTIONS OR CONCERNS? : - CURRENT MEDICATIONS TAKING METOPROLOL SUCCINATE 100 MG TABLET EXTENDED RELEASE 1 CAPSULE ORALLY ONCE A DAY, NOTES: 08/26/2020499 TAKING PROPECIA 1 MG TABLET 1 TABLET ORALLY ONCE A DAY, NOTES: 08/26/2020 0500 TAKING XIIDRA 5 % SOLUTION 1 DROP INTO AFFECTED EYE OPHTHALMIC TWICE A DAY, NOTES: ONE WEEK AGO TAKING GABAPENTIN 100 MG CAPSULE ORALLY 3 TIMES A DAY, NOTES: 08/26/2020 0500 TAKING LEXAPRO 10 MG TABLET 1 TABLET ORALLY ONCE A DAY, NOTES: 08/26/2020 0500 TAKING ATORVASTATIN CALCIUM 10 MG TABLET 1 TABLET ORALLY ONCE A DAY, NOTES: 08/26/2020 0500 NOT-TAKING TRAMADOL HCL 50 MG TABLET 1 TABLET NEEDED ORALLY Q8H PRN MDD3, NOTES: 04/02 0730 NOT-TAKING ROGAINE 2 % SOLUTION 1 ML TO AFFECTED AREA EXTERNALLY TWICE A DAY NOT-TAKING MUCINEX 600 MG TABLET EXTENDED RELEASE 1 TABLET NEEDED ORALLY EVERY 12 HRS MEDICATION LIST REVIEWED AND RECONCILED WITH THE PATIENT PAST MEDICAL HISTORY HYPERTENSION HISTORY OF KIDNEY STONES HERNIATED DDD LUMBAR L5-S1 NECK PAIN ILIOINGUINAL HERNIA REPAIR TWICE ON EACH SIDE/ NEURALGIA CHRONIC PAIN WITH DR JOHN PELLUCID MARGINAL DEGENERATION FIBROMYALGIA PTSD DEPRESSION DISCITUS SPINAL STENOSIS CARPAL TUNNEL BILATERAL FRACTURED LEFT CLAVICAL FRACTURE LEFT HUMERAL HEAD ALLERGIES POISON MERT: RASH AND ITCHING - ALLERGY CYMBALTA: MENTAL DISTRESS - SIDE EFFECTS SURGICAL HISTORY AMPUTATION LEFT PINKY FINGER 05/1970 LEFT INGUINIAL HERNIA REPAIR 03/1996 RIGHT INGUINIAL HERNIA REPAIR 04/2002 RIGHT SHOULDER ROTATOR CUFF REPAIR AND CLAVICULAR RESECTION AND REPAIR OF TEAR 04/2009 AND 04/2010 BILATERAL INGUINIAL REPAIR 2012 LEFT PLICA REMOVAL 2004 AND 2010 LEFT WRIST CARPAL TUNNEL REPAIR 2012 LUMBAR DISCECTOMY L5-S1 2013 FAMILY HISTORY FATHER: , DIAGNOSED WITH OTHER MALIGNANT NEOPLASM OF UNSPECIFIED SITE MOTHER: ALIVE, OTHER MALIGNANT NEOPLASM OF UNSPECIFIED SITE PATERNAL GRAND FATHER: RHEUMATOID / PSORIATIC ARTHRITIS PATERNAL GRAND MOTHER: RHEUMATOID SISTER: LUPUS, DIAGNOSED WITH OTHER MALIGNANT NEOPLASM OF UNSPECIFIED SITE 1 SISTER(S) - HEALTHY. NEICE- LUPUS\\\\N\\\\NPATERNAL AUNTS- RHEUMATOID. SOCIAL HISTORY GENERAL: TOBACCO USE ARE YOU A:NONSMOKER LATEX QUESTIONNAIRE LATEX ALLERGY : HAVE YOU EVER DEVELOPED ANY TYPE OF REACTION AFTER HANDLING LATEX PRODUCTS SUCH RUBBER GLOVES, CONDOMS, DIAPHRAGMS, BALLOONS, SOCKS, OR UNDERWEAR?NO LATEX ALLERGY : HAVE YOU EVER DEVELOPED ANY TYPE OF REACTION DURING OR AFTER DENTAL APPOINTMENT, VAGINAL/RECTAL EXAMINATION, SURGICAL PROCEDURE, OR ANY OTHER EXPOSURE?NO LATEX RISK : HAVE YOU EVER HAD ANY DIFFICULTY BREATHING OR HIVES AFTER EATING OR HANDLING ANY FRUITS, OR VEGETABLES; SUCH KIWI, BANANAS, STONE FRUITS, OR CHESTNUTSNO LATEX RISK : DO YOU HAVE A PREVIOUS PERSONAL HISTORY OF MORE THAN NINE SURGERIES, SPINA BIFIDA, OR REPEATED CATHERIZATIONS? YES - PLEASE INDICATE : > 9 SURGERIES LATEX RISK : ARE YOU FREQUENTLY EXPOSED TO LATEX PRODUCTS IN YOUR OCCUPATION?NO DATE ASKED : 08/26/2020 ALCOHOL SCREENING DID YOU HAVE A DRINK CONTAINING ALCOHOL IN THE PAST YEAR?YES HOW OFTEN DID YOU HAVE SIX OR MORE DRINKS ON ONE OCCASION IN THE PAST YEAR?NEVER (0 POINTS) HOW MANY DRINKS DID YOU HAVE ON A TYPICAL DAY WHEN YOU WERE DRINKING IN THE PAST YEAR?1 OR 2 (0 POINTS) HOW OFTEN DID YOU HAVE A DRINK CONTAINING ALCOHOL IN THE PAST YEAR?TWO TO FOUR TIMES A MONTH (2 POINTS) POINTS2 INTERPRETATIONNEGATIVE RECREATIONAL DRUG USE DRUG USE?NO CAFFEINE CAFFEINE USE?YES COFFEE HOW OFTEN AND HOW MUCH? 2 CUPS PER DAY HIV / HEP-C SCREENING HIV TEST OFFERED TO PATIENT:NO HEP-C TEST OFFERED TO PATIENT:NO LATTER-DAY [id number] YARSANI LANGUAGE LANGUAGES SPOKEN:LEBANESE EDUCATION LEVEL OF EDUCATION:FINISHED COLLEGE LEARNING BARRIERS / SPECIAL NEEDS CHANGE FROM LAST VISIT?NO BARRIERS TO LEARNING?NO HEARING IMPAIRED?NO TINNITIS VISION IMPAIRED?YES COGNITIVELY IMPAIRED?NO :CORRECTIVE LENSES READINESS TO LEARN?YES LEARNING PREFERENCES?NO LEARNING CAPABILITIES PRESENT?YES EMOTIONAL BARRIERS?NO SPECIAL DEVICES?NO FIBERGLASS INSULATION INSTALLER NEEDED?NO DOMESTIC VIOLENCE DO YOU FEEL SAFE IN YOUR ENVIRONMENT?YES 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 EXERCISE: TREADMILL AND PADDLEBOARD. MARITAL STATUS: SINGLE. OTHERS AT HOME: FATHER AND GIRLFRIEND. PAIN CLINIC PFS, CLERGY, PUBLIC HEALTH REFERRALS PFS REFERRAL NEEDED?NO CLERGY REFERRAL NEEDED?NO PUBLIC HEALTH REFERRAL NEEDED?NO HAS THE PATIENT BEEN EDUCATED REGARDING HIS/HER PLAN OF CARE?YES HAS THE PATIENT BEEN EDUCATED REGARDING PAIN, THE RISK FOR PAIN, THE IMPORTANCE OF EFFECTIVE PAIN MANAGEMENT, AND THE PAIN ASSESSMENT PROCESS?YES ADVANCE DIRECTIVE ADVANCE DIRECTIVE DISCUSSED WITH PATIENT:YES 07/16/20 PT DOES NOT HAVE ANY ADVANCED DIRECTIVES AND HE DECLINES INFORMATION ON HCP AT THIS TIME. HOSPITALIZATION/MAJOR DIAGNOSTIC PROCEDURE SEE ABOVE - SURGERIES VITAL SIGNS WT 243.4 LBS, HT 70", BMI 34.92 INDEX, BP 142/79 MM HG, HR 55 /MIN, RR 18 /MIN, TEMP 97 F, OXYGEN SAT % 97%, SAFE IN ENV? (Y/N) YES, NA INITIALS SC 14:00, REVIEWED BY: RUBÉNJREMIKYD Sari ORTIZ RN. EXAMINATION GENERAL EXAMINATION: THE PATIENT IS ALERT, ORIENTED TIMES THREE AND COOPERATIVE. HEART SHOWS REGULAR RHYTHM, NO MURMURS AND NO GALLOPS. LUNGS ARE CLEAR TO AUSCULTATION. ASSESSMENTS SACROILIITIS - M46.1 (PRIMARY), RISK: (NULL) SACROILIAC JOINT DYSFUNCTION - M53.3 TREATMENT SACROILIITIS [facility] FLUORO GUIDANCE (PAIN)[id number] MEDICATION: VALIUM TAB 10MG ORALLY (DIAZEPAM)SHADIA FERNANDES 08/26/2020 2:22:17 PM > LOT# [id number] EXP: 04/29. SHADIA FERNANDES 08/26/2020 2:22:24 PM > VERIFIED. ELI WARREN 08/26/2020 2:24:53 PM > ADMINISTERED MEDICATION: OXYCODONE HCL TAB 10MG ORALLYSHADIA FERNANDES 08/26/2020 2:21:31 PM > LOT# [id number] EXP: 11/2021. SHADIA FERNANDES 08/26/2020 2:21:49 PM > VERIFIED. ELI WARREN 08/26/2020 2:25:27 PM > ADMINISTERED PROCEDURES PAIN NURSING RECORD PRE-PROCEDURE IV SITE N/A PROCEDURE IN ROOM 1450, PHYSICIAN IN ROOM 1454, START 1458, FINISH 1500, PHYSICIAN OUT OF ROOM 1501, OUT OF ROOM 1507, STEROID KENALOG 40MG, O2 RA, ECG NORMAL SINUS, PATIENT SHIELDED YES, SAFETY STRAP YES, PREP CHLOROPREP BY Sari ORTIZ RN, IV INFUSED N/A, DRESSING TEGADERM BY DR JOHN LOC: ELI WARREN 08/26/2020 2:54:43 PM > , 1. ALERT, ORIENTED RESP: ELI WARREN 08/26/2020 2:54:46 PM > , 1. REGULAR, NO DYSPNEA COLOR: ELI WARREN 08/26/2020 2:54:49 PM > , 1. PINK SKIN: ELI WARREN 08/26/2020 2:54:55 PM > , 1. WARM, DRY POSITION: ELI WARREN 08/26/2020 2:54:58 PM > , 1. PRONE VITALS: ELI WARREN 08/26/2020 2:55:01 PM > 138/89-63-18-95% , ELI WARREN 08/26/2020 3:00:21 PM > 147/82-68-18-95% , ELI WARREN 08/26/2020 3:13:53 PM > 123/78-67-18-96% RA DISCHARGE: POST PAIN 1 LEFT HIP, DRESSING SITE DRY AND INTACT LEFT LOW BACK, IV N/A, GAIT STEADY, TEACHING COMPLETED, PATIENT ACKNOWLEDGES UNDERSTANDING YES PATIENT VERBALIZES UNDERSTANDING OF DISCHARGE INSTRUCTIONS REVIEWED, PATIENT DISCHARGED AT 1517 PRE PROCEDURE DIAGNOSIS SACROILITIS, SACROILIAC JOINT DYSFUNCTION POST PROCEDURE DIAGNOSIS SACROILIITIS, SACROILIAC JOINT DYSFUNCTION PROCEDURE LEFT SACROILIAC JOINT BLOCK SURGEON DR. LISY JOHN DRILL SETUP OPERATOR NONE ANESTHESIA LOCAL PRE PROCEDURE NOTE THE PATIENT HAS A HISTORY OF CHRONIC LOW BACK PAIN. I EVALUATED THE PATIENT AND REVIEWED THE CHART. I WENT OVER THE RISKS, BENEFITS AND ALTERNATIVES ASSOCIATED WITH THIS PROCEDURE. I DISCUSSED THAT THE USE OF STEROIDS MAY CONTRIBUTE TO IMMUNOSUPPRESSION OF THE PATIENT'S BODY AGAINST INFECTIONS SUCH COVID-19. THE PATIENT IS AWARE OF THE POTENTIAL COMPLICATIONS ASSOCIATED WITH THIS VIRUS, INCLUDING, BUT NOT LIMITED, . THE PATIENT WOULD LIKE TO PROCEED AND GIVES CONSENT TO PERFORM THE PROCEDURE. THE PATIENT DENIES UNEXPLAINABLE WEIGHT LOSS, FEVER, CHILLS OR NEW CHANGES IN URINARY OR BOWEL CONTROL. THE PATIENT IS COVID-19 NEGATIVE DESCRIPTION OF PROCEDURE THE PATIENT WAS BROUGHT TO THE PROCEDURE ROOM AND PLACED IN THE PRONE POSITION. THE LUMBOSACRAL AREA WAS CLEANED WITH CHLORAPREP SOLUTION AND DRAPED ASEPTICALLY. THE PROCEDURE WAS DONE UNDER STERILE CONDITIONS. A TIMEOUT WAS PERFORMED WHERE LATERALITY AND THE SITE OF THE PROCEDURE WERE CHECKED AND CONFIRMED WITH EVERYONE IN THE ROOM. UNDER FLUOROSCOPIC GUIDANCE, THE TARGET POINT WAS SELECTED AT THE LOWER BORDER OF THE LEFT SACROILIAC JOINT. TARGET POINT WAS SELECTED AFTER MEDIAL ROTATION AND TILT OF THE MAGNIFIER OR THE C-ARM. I CONFIRMED AGAIN WITH EVERYONE IN THE ROOM THE LATERALITY OF THE TARGET AT 1457. LIDOCAINE 0.5% WAS USED TO NUMB THE SKIN AND THE SUBCUTANEOUS TISSUE BELOW IT. SPINAL NEEDLE, 22-GAUGE, WAS ADVANCED UNDER FLUOROSCOPIC GUIDANCE AND FOLLOWING PATIENT FEEDBACK UNTIL THE TARGET WAS TOUCHED. THE POSITION OF THE NEEDLE WAS VERIFIED WITH AP AND OBLIQUE VIEWS. AFTER PROPER POSITION OF THE NEEDLE WAS ACHIEVED, ISOVUE-M DYE 30%, 0.1 ML, WAS INJECTED SHOWING ADEQUATE SPREAD OF THE DYE. KENALOG 40 MG WAS INJECTED. THEN, A SOLUTION OF 3.0 ML OF BUPIVACAINE 0.125% WAS USED TO FLUSH THE NEEDLE. THE MEDICATIONS WERE VERIFIED WITH THE NURSE. THERE WAS NO EVIDENCE OF BLOOD, PARESTHESIA OR CEREBROSPINAL FLUID DURING THE PROCEDURE. THE PATIENT WAS SENT TO THE RECOVERY ROOM. THE PATIENT WAS MOVING THE EXTREMITIES AND DOING WELL. THERE WERE NO COMPLICATIONS DURING THE PROCEDURE. ESTIMATED BLOOD LOSS WAS LESS THAN 5 ML. FLUOROSCOPIC TIME WAS 24 SECONDS. POST PROCEDURE NOTE THE PATIENT WILL BE SEEN IN A FOLLOW UP IN THE NEXT FEW WEEKS. I AM LOOKING FOR LONG LASTING RELIEF FOR THE PATIENT WITH THIS INTERVENTION. INSTRUCTIONS WERE GIVEN, QUESTIONS WERE ANSWERED AND THE PATIENT EXPRESSED UNDERSTANDING AND AGREES WITH THE PAIN. I, LARRY ASHER, DOCUMENTED THE ABOVE INFORMATION ACTING A SCRIBE FOR DR. JOHN. I HAVE REVIEWED THE ABOVE DOCUMENT WRITTEN BY LARRY ASHER, TELEVISION CAMERAMAN, AND I VERIFY THAT IT IS ACCURATE. PROCEDURE CODES 45298 INJECT SACROILIAC JOINT, MODIFIERS: LT DISPOSITION & COMMUNICATION FOLLOW UP FOLLOW UP WITH FISHERIES BIOLOGIST (REASON: POST LEFT SIJ ) ELECTRONICALLY SIGNED BY LISY JOHN MD, MD ON 08/28/2020 AT 12:39 PM EST DISCLAIMER : THIS IS A VISIT SUMMARY EXTRACTED FROM THE [employer] CHART. IT IS NOT A COPY OF THE [employer] PROGRESS NOTE. LYNDSAY
== END ==
LOC: M PAIN 14:00
PROVIDERS: ATTEND Anesthesiology
DX: M46.1 Sacroiliitis, not elsewhere classified (principal); M53.3 Sacrococcygeal disorders, not elsewhere classified; I10 Essential (primary) hypertension; M79.7 Fibromyalgia; F43.10 Post-traumatic stress disorder, unspecified; F32.9 Major depressive disorder, single episode, unspecified; Z79.899 Other long term (current) drug therapy; Z88.8 Allergy status to other drugs, medicaments and biological substances; Z91.048 Other nonmedicinal substance allergy status
CPT/HCPCS: 27096; J3301; Q9967

== ENCOUNTER → 2020-09-09 | Outpatient (CLI) | payer OTHER ==
[~2020-09-09] MED LIST changes: -BUPIVACAINE HCL 0.25% 30ML VIAL As Ordered ONE; -ISOVUE-M 300 61% 15ML VIAL As Ordered ONE; -LIDOCAINE 1% SDV 30ML VIAL As Ordered ONE; -TRIAMCINOLONE ACETONIDE SUSP 40 MG/ML VIAL (J3301) As Ordered ONE; -diazePAM 5 MG TAB As Ordered ONE; -oxyCODONE 5MG TAB As Ordered ONE
--- NOTE | 2020-09-11 02:38 | ECWPNPC ---
PATIENT NAME: CORY JEFFERY : 1965 GENDER: MALE VISIT DATE: 09/09/2020 DISCHARGE DATE: 09/09/20 1130 VISIT LOCKED DATE TIME: PHYSICIAN: RACHNA HUITRON RESOURCE: RACHNA HUITRON REASON FOR APPOINTMENT 1. POST LEFT SIJ HISTORY OF PRESENT ILLNESS PAIN CENTER INTAKE QUESTIONS: 55-YEAR-OLD MALE IN FOR POST LEFT SACROILIAC JOINT BLOCK FOLLOW-UP. HE RATES HIS PAIN CURRENTLY AT A 2 OUT OF 10 AND DESCRIBES IT ACHING. HE FEELS THE PROCEDURE WAS SUCCESSFUL OVERALL RATING HIS PAIN PREPROCEDURE AT A 5-6 OUT OF 10 AND POSTPROCEDURE AT A 1-2 OUT OF 10. HE FURTHER STATES THE PROCEDURE CONTINUES TO HELP HIM TODAY. GENERAL: -. FALL RISK SCREENING: SCREENING :NO FALLS REPORTED IN THE LAST YEAR NURSING NOTE: -. PAIN SCREENING: PATIENT HAS A COMPLAINT OF ACUTE OR CHRONIC PAIN :YES LEVEL OF RELIEF FROM PAIN TREATMENTS IN THE PAST:75% PAIN IS DECREASED BY:OTHERS PAIN INTERVENTIONS SIJ PAIN IS INCREASED BY:ACTIVITIES DURATION:CONTINOUS WHAT DOES YOUR PAIN FEEL LIKE:ACHING INTENSITY OF PAIN (SCALE OF 1 TO 10):2 LOCATION OF PAIN:LOW BACK CURRENT MEDICATIONS TAKING METOPROLOL SUCCINATE 100 MG TABLET EXTENDED RELEASE 1 CAPSULE ORALLY ONCE A DAY, NOTES: 08/26/2020 0500 TAKING PROPECIA 1 MG TABLET 1 TABLET ORALLY ONCE A DAY, NOTES: 08/26/2020 050 TAKING XIIDRA 5 % SOLUTION 1 DROP INTO AFFECTED EYE OPHTHALMIC TWICE A DAY, NOTES: ONE WEEK AGO TAKING GABAPENTIN 100 MG CAPSULE ORALLY 3 TIMES A DAY, NOTES: 08/26/2020 050 TAKING LEXAPRO 10 MG TABLET 1 TABLET ORALLY ONCE A DAY, NOTES: 08/26/2020 050 TAKING ATORVASTATIN CALCIUM 10 MG TABLET 1 TABLET ORALLY ONCE A DAY, NOTES: 08/26/2020 0500 NOT-TAKING TRAMADOL HCL 50 MG TABLET 1 TABLET NEEDED ORALLY Q8H PRN MDD3, NOTES: 04/02 0730 NOT-TAKING ROGAINE 2 % SOLUTION 1 ML TO AFFECTED AREA EXTERNALLY TWICE A DAY NOT-TAKING MUCINEX 600 MG TABLET EXTENDED RELEASE 1 TABLET NEEDED ORALLY EVERY 12 HRS MEDICATION LIST REVIEWED AND RECONCILED WITH THE PATIENT PAST MEDICAL HISTORY HYPERTENSION HISTORY OF KIDNEY STONES HERNIATED DDD LUMBAR L5-S1 NECK PAIN ILIOINGUINAL HERNIA REPAIR TWICE ON EACH SIDE/ NEURALGIA CHRONIC PAIN WITH DR JOHN PELLUCID MARGINAL DEGENERATION FIBROMYALGIA PTSD DEPRESSION DISCITUS SPINAL STENOSIS CARPAL TUNNEL BILATERAL FRACTURED LEFT CLAVICAL FRACTURE LEFT HUMERAL HEAD ALLERGIES POISON MERT: RASH AND ITCHING - ALLERGY CYMBALTA: MENTAL DISTRESS - SIDE EFFECTS SURGICAL HISTORY AMPUTATION LEFT PINKY FINGER 05/1970 LEFT INGUINIAL HERNIA REPAIR 03/1996 RIGHT INGUINIAL HERNIA REPAIR 04/2002 RIGHT SHOULDER ROTATOR CUFF REPAIR AND CLAVICULAR RESECTION AND REPAIR OF TEAR 04/2009 AND 04/2010 BILATERAL INGUINIAL REPAIR 2011 LEFT PLICA REMOVAL 2004 AND 2010 LEFT WRIST CARPAL TUNNEL REPAIR 2012 LUMBAR DISCECTOMY L5-S1 2013 FAMILY HISTORY FATHER: , DIAGNOSED WITH OTHER MALIGNANT NEOPLASM OF UNSPECIFIED SITE MOTHER: ALIVE, OTHER MALIGNANT NEOPLASM OF UNSPECIFIED SITE PATERNAL GRAND FATHER: RHEUMATOID / PSORIATIC ARTHRITIS PATERNAL GRAND MOTHER: RHEUMATOID SISTER: LUPUS 1 SISTER(S) - HEALTHY. NEICE- LUPUS\\\\N\\\\NPATERNAL AUNTS- RHEUMATOID. SOCIAL HISTORY GENERAL: LATEX QUESTIONNAIRE LATEX ALLERGY : HAVE YOU EVER DEVELOPED ANY TYPE OF REACTION AFTER HANDLING LATEX PRODUCTS SUCH RUBBER GLOVES, CONDOMS, DIAPHRAGMS, BALLOONS, SOCKS, OR UNDERWEAR?NO LATEX ALLERGY : HAVE YOU EVER DEVELOPED ANY TYPE OF REACTION DURING OR AFTER DENTAL APPOINTMENT, VAGINAL/RECTAL EXAMINATION, SURGICAL PROCEDURE, OR ANY OTHER EXPOSURE?NO LATEX RISK : HAVE YOU EVER HAD ANY DIFFICULTY BREATHING OR HIVES AFTER EATING OR HANDLING ANY FRUITS, OR VEGETABLES; SUCH KIWI, BANANAS, STONE FRUITS, OR CHESTNUTSNO LATEX RISK : DO YOU HAVE A PREVIOUS PERSONAL HISTORY OF MORE THAN NINE SURGERIES, SPINA BIFIDA, OR REPEATED CATHERIZATIONS? YES - PLEASE INDICATE : > 9 SURGERIES LATEX RISK : ARE YOU FREQUENTLY EXPOSED TO LATEX PRODUCTS IN YOUR OCCUPATION?NO DATE ASKED : 09/09/2020 ALCOHOL SCREENING DID YOU HAVE A DRINK CONTAINING ALCOHOL IN THE PAST YEAR?YES HOW OFTEN DID YOU HAVE SIX OR MORE DRINKS ON ONE OCCASION IN THE PAST YEAR?NEVER (0 POINTS) HOW MANY DRINKS DID YOU HAVE ON A TYPICAL DAY WHEN YOU WERE DRINKING IN THE PAST YEAR?1 OR 2 (0 POINTS) HOW OFTEN DID YOU HAVE A DRINK CONTAINING ALCOHOL IN THE PAST YEAR?TWO TO FOUR TIMES A MONTH (2 POINTS) POINTS2 INTERPRETATIONNEGATIVE RECREATIONAL DRUG USE DRUG USE?NO CAFFEINE CAFFEINE USE?YES COFFEE HOW OFTEN AND HOW MUCH? 2 CUPS PER DAY HIV / HEP-C SCREENING HIV TEST OFFERED TO PATIENT:NO HEP-C TEST OFFERED TO PATIENT:NO EVANGELICAL [id number] CHRISTIAN LANGUAGE LANGUAGES SPOKEN:FAROESE EDUCATION LEVEL OF EDUCATION:FINISHED COLLEGE LEARNING BARRIERS / SPECIAL NEEDS CHANGE FROM LAST VISIT?NO BARRIERS TO LEARNING?NO HEARING IMPAIRED?NO TINNITIS VISION IMPAIRED?YES COGNITIVELY IMPAIRED?NO :CORRECTIVE LENSES READINESS TO LEARN?YES LEARNING PREFERENCES?NO LEARNING CAPABILITIES PRESENT?YES EMOTIONAL BARRIERS?NO SPECIAL DEVICES?NO SURVEYOR INSTRUMENT ASSISTANT NEEDED?NO DOMESTIC VIOLENCE DO YOU FEEL SAFE IN YOUR ENVIRONMENT?YES 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 EXERCISE: TREADMILL AND PADDLEBOARD. MARITAL STATUS: SINGLE. OTHERS AT HOME: FATHER AND GIRLFRIEND. PAIN CLINIC PFS, CLERGY, PUBLIC HEALTH REFERRALS PFS REFERRAL NEEDED?NO CLERGY REFERRAL NEEDED?NO PUBLIC HEALTH REFERRAL NEEDED?NO HAS THE PATIENT BEEN EDUCATED REGARDING HIS/HER PLAN OF CARE?YES HAS THE PATIENT BEEN EDUCATED REGARDING PAIN, THE RISK FOR PAIN, THE IMPORTANCE OF EFFECTIVE PAIN MANAGEMENT, AND THE PAIN ASSESSMENT PROCESS?YES ADVANCE DIRECTIVE ADVANCE DIRECTIVE DISCUSSED WITH PATIENT:YES 07/16/20 PT DOES NOT HAVE ANY ADVANCED DIRECTIVES AND HE DECLINES INFORMATION ON HCP AT THIS TIME. HOSPITALIZATION/MAJOR DIAGNOSTIC PROCEDURE SEE ABOVE - SURGERIES REVIEW OF SYSTEMS CONSTITUTIONAL: ANY RECENT FEVER NO . CHILLS NO . WEIGHT CHANGE OF UNKNOWN REASONS NO . GASTROENTEROLOGY: NEW UNEXPLAINABLE CHANGES IN BOWEL CONTROL NO . CONSTIPATION NO . GENITOURINARY: ANY NEW CHANGE IN BLADDER CONTROL? NO . NEUROLOGY: NEW ONSET DIZZINESS OR NEUROLOGICAL CHANGES NOT MENTIONED NO . NEW NUMBNESS OR PAIN PATTERNS NOT MENTIONED AND PERTINENT TO TODAY'S VISIT NO . CARDIOLOGY: NEW CHEST PRESSURE NO . NEW CHEST PAIN NO . RESPIRATORY: UNEXPLAINABLE COUGH NO . NEW SHORTNESS OF BREATH NO . VITAL SIGNS WT 242.6 LBS, HT 70", BMI 34.81 INDEX, BP 147/82 MM HG, HR 67 /MIN, RR 18 /MIN, TEMP 97.5 F, OXYGEN SAT % 94%, NA INITIALS AW 1105. EXAMINATION GENERAL EXAMINATION: GENERALNO ACUTE DISTRESS, WELL NOURISHED AND HYDRATED. PSYCHAPPROPRIATE MOOD AND AFFECT . LUNGS:CLEAR TO AUSCULTATION BILATERALLY, NO WHEEZES, RHONCHI, RALES. HEART:NO MURMURS, REGULAR RATE AND RHYTHM. ASSESSMENTS OTHER CHRONIC PAIN - G89.29 (PRIMARY) SACROILIITIS - M46.1 TREATMENT OTHER CHRONIC PAIN PAIN PROCEDURE LOGDATE OF EOYDIAJCY98/17/2020PROCEDURE:LEFT SIJAMOUNT OF PRE SEDATEPO VALIUM 10, OXYCODONE 10RESULT:PRE--03/19 POST -11/19 NOTES: 55-YEAR-OLD MALE IN FOR POST LEFT SACROILIAC JOINT BLOCK FOLLOW-UP. GIVEN PRESENTING SYMPTOMS RECOMMEND FOLLOW-UP IN 3 MONTHS. PATIENT HAS EXPRESSED UNDERSTANDING OF AND WAS IN AGREEMENT WITH TREATMENT PLAN. GIVEN TIME TO ASK QUESTIONS AND EXPRESS CONCERNS. DISPOSITION & COMMUNICATION FOLLOW UP 3 MONTHS (REASON: SACROILIITIS) ELECTRONICALLY SIGNED BY BOGDAN PRADHAN ON 09/10/2020 AT 08:53 AM EST DISCLAIMER : THIS IS A VISIT SUMMARY EXTRACTED FROM THE [employer] CHART. IT IS NOT A COPY OF THE [employer] PROGRESS NOTE. LYNDSAY
== END ==
LOC: M PAIN 11:00
PROVIDERS: ATTEND Family Medicine
DX: G89.29 Other chronic pain (principal); M46.1 Sacroiliitis, not elsewhere classified; I10 Essential (primary) hypertension; M79.7 Fibromyalgia; F43.10 Post-traumatic stress disorder, unspecified; F32.9 Major depressive disorder, single episode, unspecified; Z79.899 Other long term (current) drug therapy; Z88.8 Allergy status to other drugs, medicaments and biological substances

== ENCOUNTER → 2020-11-19 | Outpatient (REF) | payer OTHER, MEDICAID ==
[2020-11-19 16:28] LABS: BASO % 0.5 % (0.0-1.0); EOS # 0.1 10^3/uL (0.0-0.5); EOS % 1.6 % (0.0-3.0); HEMATOCRIT 49.4 % (42.0-52.0); HEMOGLOBIN 16.5 g/dl (13.5-17.5); LYMPH # 1.8 10^3/uL (1.5-5.0); LYMPH % 20.6 % (24.0-44.0); MEAN CORPUSCULAR HEMOGLOBIN 31.5 pg (27.0-33.0); MEAN CORPUSCULAR HGB CONC 33.4 g/dl (32.0-36.5); MEAN CORPUSCULAR VOLUME 94.3 fl (80.0-96.0); MONO # 0.7 10^3/uL (0.0-0.8); NEUTROPHILS # 6.1 10^3/uL (1.5-8.5); NEUTROPHILS % 68.8 % (36.0-66.0); PLATELET COUNT, AUTOMATED 277 10^3/uL (150-450); RED BLOOD COUNT 5.24 10^6/uL (4.30-6.10); WHITE BLOOD COUNT 8.8 10^3/uL (4.0-10.0)
[2020-11-19 17:10] LABS: ALBUMIN 4.2 GM/DL (3.2-5.2); ALT/SGPT 45 U/L (12-78); BILIRUBIN,TOTAL 0.9 MG/DL (0.2-1.0); BLOOD UREA NITROGEN 10 MG/DL (7-18); CALCIUM LEVEL 9.6 MG/DL (8.5-10.1); CARBON DIOXIDE LEVEL 29 MEQ/L (21-32); CHLORIDE LEVEL 104 MEQ/L (98-107); CHOLESTEROL LEVEL 184 MG/DL (<200); CPK CREATINE PHOSPHOKINASE 109 U/L (39-308); CREATININE FOR GFR 1.02 MG/DL (0.70-1.30); GLOMERULAR FILTRATION RATE > 60.0 (>56); GLUCOSE, FASTING 86 MG/DL (70-100); HDL CHOLESTEROL 50 MG/DL (>40); LDL CHOLESTEROL 109 MG/DL (<100); NON-HDL-C 134 MG/DL; POTASSIUM SERUM 4.7 MEQ/L (3.5-5.1); SODIUM LEVEL 140 MEQ/L (136-145); TOTAL 25(OH) VITAMIN D 21.6 NG/ML (30.0-100.0); TOTAL PROTEIN 7.2 GM/DL (6.4-8.2); TRIGLYCERIDES LEVEL 123 MG/DL (<150)
[2020-11-19 17:51] LABS: HEMOGLOBIN A1c 5.2 %
== END ==
LOC: M LAB REF 15:33
PROVIDERS: ATTEND Physician Assistant
DX: F43.23 Adjustment disorder with mixed anxiety and depressed mood (principal); E78.00 Pure hypercholesterolemia, unspecified; Z12.5 Encounter for screening for malignant neoplasm of prostate; E66.9 Obesity, unspecified

== ENCOUNTER → 2020-11-25 | Outpatient (REF) | payer OTHER, MEDICAID | LOC: M LAB REF 15:51 | PROVIDERS: ATTEND Physician Assistant | DX: R68.82 Decreased libido (principal) ==

== ENCOUNTER → 2020-12-09 | Outpatient (CLI) | payer OTHER ==
--- NOTE | 2020-12-11 03:43 | ECWPNPC ---
PATIENT NAME: CORY JEFFERY : 1965 GENDER: MALE VISIT DATE: 12/09/2020 DISCHARGE DATE: 12/09/20 1153 VISIT LOCKED DATE TIME: PHYSICIAN: RACHNA HUITRON RESOURCE: RACHNA HUITRON REASON FOR APPOINTMENT 1. 3 MONTH FOLLOW UP SACROILIITIS HISTORY OF PRESENT ILLNESS GENERAL: - 55-YEAR-OLD MALE IN FOR CHRONIC PAIN FOLLOW-UP. HE RATES PAIN CURRENTLY AT A 5 OUT OF 10 AND DESCRIBES IT ACHING. FALL RISK SCREENING: SCREENING :TWO OR MORE FALLS WITHOUT INJURY IN THE PAST YEAR PAIN SCREENING: PATIENT HAS A COMPLAINT OF ACUTE OR CHRONIC PAIN :YES LOCATION OF PAIN:NECK, ANKLE(S) INTENSITY OF PAIN (SCALE OF 1 TO 10):5 WHAT DOES YOUR PAIN FEEL LIKE:ACHING DURATION:CONTINOUS, CONSTANT PAIN IS INCREASED BY:ACTIVITIES PAIN IS DECREASED BY:USE OF PAIN MEDICATIONS NURSING NOTE: -. PAIN CENTER INTAKE QUESTIONS: DO YOU HAVE A HISTORY OF MRSA? :NO DO YOU TAKE A BLOOD THINNERS? :NO DO YOU HAVE ANY BLEEDING DISORDERS? :NO ANY NEW NUMBNESS OR WEAKNESS IN YOUR LEGS OR ARMS? :NO ANY PACEMAKER,DEFIBRILLATOR, OR DORSAL COLUMN STIMULATOR? :NO DO YOU HAVE ANY RASHES OR OPEN SORES? :NO ARE YOU ALLERGIC TO IV DYE? :NO ARE YOU DIABETIC? :NO ANY NEW PROBLEMS WITH YOUR MEDICATIONS? :NO HAVE YOU RECEIVED A VACCINE IN THE PAST 30 DAYS? :NO DO YOU PLAN TO RECEIVE A VACCINE IN THE NEXT 21 DAYS? :NO DO YOU NEED ANY PRESCRIPTION? :NO DO YOU TAKE ANY IMMUNOSUPPRESSIVE MEDICATIONS? :NO DO YOU HAVE ANY KIDNEY OR LIVER DISEASE? :NO IS THERE A CHANCE YOU COULD BE ? :NO ARE YOU BREAST FEEDING? :NO CURRENT MEDICATIONS TAKING METOPROLOL SUCCINATE 100 MG TABLET EXTENDED RELEASE 1 CAPSULE ORALLY ONCE A DAY TAKING PROPECIA 1 MG TABLET 1 TABLET ORALLY ONCE A DAY TAKING XIIDRA 5 % SOLUTION 1 DROP INTO AFFECTED EYE OPHTHALMIC TWICE A DAY TAKING GABAPENTIN 100 MG CAPSULE ORALLY 3 TIMES A DAY TAKING LEXAPRO 10 MG TABLET 1 TABLET ORALLY ONCE A DAY TAKING ATORVASTATIN CALCIUM 10 MG TABLET 1 TABLET ORALLY ONCE A DAY NOT-TAKING TRAMADOL HCL 50 MG TABLET 1 TABLET NEEDED ORALLY Q8H PRN MDD3 NOT-TAKING ROGAINE 2 % SOLUTION 1 ML TO AFFECTED AREA EXTERNALLY TWICE A DAY NOT-TAKING MUCINEX 600 MG TABLET EXTENDED RELEASE 1 TABLET NEEDED ORALLY EVERY 12 HRS MEDICATION LIST REVIEWED AND RECONCILED WITH THE PATIENT PAST MEDICAL HISTORY HYPERTENSION HISTORY OF KIDNEY STONES HERNIATED DDD LUMBAR L5-S1 NECK PAIN ILIOINGUINAL HERNIA REPAIR TWICE ON EACH SIDE/ NEURALGIA CHRONIC PAIN WITH DR JOHN PELLUCID MARGINAL DEGENERATION FIBROMYALGIA PTSD DEPRESSION DISCITUS SPINAL STENOSIS CARPAL TUNNEL BILATERAL FRACTURED LEFT CLAVICAL FRACTURE LEFT HUMERAL HEAD ALLERGIES POISON MERT: RASH AND ITCHING - ALLERGY CYMBALTA: MENTAL DISTRESS - SIDE EFFECTS SOCIAL HISTORY GENERAL: LATEX QUESTIONNAIRE LATEX ALLERGY : HAVE YOU EVER DEVELOPED ANY TYPE OF REACTION AFTER HANDLING LATEX PRODUCTS SUCH RUBBER GLOVES, CONDOMS, DIAPHRAGMS, BALLOONS, SOCKS, OR UNDERWEAR?NO LATEX ALLERGY : HAVE YOU EVER DEVELOPED ANY TYPE OF REACTION DURING OR AFTER DENTAL APPOINTMENT, VAGINAL/RECTAL EXAMINATION, SURGICAL PROCEDURE, OR ANY OTHER EXPOSURE?NO DATE ASKED : 09/09/2020 LATEX RISK : HAVE YOU EVER HAD ANY DIFFICULTY BREATHING OR HIVES AFTER EATING OR HANDLING ANY FRUITS, OR VEGETABLES; SUCH KIWI, BANANAS, STONE FRUITS, OR CHESTNUTSNO LATEX RISK : DO YOU HAVE A PREVIOUS PERSONAL HISTORY OF MORE THAN NINE SURGERIES, SPINA BIFIDA, OR REPEATED CATHERIZATIONS? YES - PLEASE INDICATE : > 9 SURGERIES LATEX RISK : ARE YOU FREQUENTLY EXPOSED TO LATEX PRODUCTS IN YOUR OCCUPATION?NO ALCOHOL SCREENING DID YOU HAVE A DRINK CONTAINING ALCOHOL IN THE PAST YEAR?YES HOW OFTEN DID YOU HAVE SIX OR MORE DRINKS ON ONE OCCASION IN THE PAST YEAR?NEVER (0 POINTS) HOW MANY DRINKS DID YOU HAVE ON A TYPICAL DAY WHEN YOU WERE DRINKING IN THE PAST YEAR?1 OR 2 (0 POINTS) HOW OFTEN DID YOU HAVE A DRINK CONTAINING ALCOHOL IN THE PAST YEAR?TWO TO FOUR TIMES A MONTH (2 POINTS) POINTS2 INTERPRETATIONNEGATIVE RECREATIONAL DRUG USE DRUG USE?YES MARIJUANA HOW OFTEN AND HOW MUCH? MEDICAL OCCASIONALLY CAFFEINE CAFFEINE USE?YES COFFEE HOW OFTEN AND HOW MUCH? 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 EXERCISE: TREADMILL AND PADDLEBOARD. MARITAL STATUS: SINGLE. OTHERS AT HOME: FATHER AND GIRLFRIEND. - PFS REFERRAL NEEDED?NO CLERGY REFERRAL NEEDED?NO PUBLIC HEALTH REFERRAL NEEDED?NO HAS THE PATIENT BEEN EDUCATED REGARDING HIS/HER PLAN OF CARE?YES HAS THE PATIENT BEEN EDUCATED REGARDING PAIN, THE RISK FOR PAIN, THE IMPORTANCE OF EFFECTIVE PAIN MANAGEMENT, AND THE PAIN ASSESSMENT PROCESS?YES ADVANCE DIRECTIVE ADVANCE DIRECTIVE DISCUSSED WITH PATIENT:YES 07/16/20 PT DOES NOT HAVE ANY ADVANCED DIRECTIVES AND HE DECLINES INFORMATION ON HCP AT THIS TIME. REVIEW OF SYSTEMS CONSTITUTIONAL: ANY RECENT FEVER NO . CHILLS NO . WEIGHT CHANGE OF UNKNOWN REASONS NO . GASTROENTEROLOGY: NEW UNEXPLAINABLE CHANGES IN BOWEL CONTROL NO . CONSTIPATION NO . GENITOURINARY: ANY NEW CHANGE IN BLADDER CONTROL? NO . NEUROLOGY: NEW ONSET DIZZINESS OR NEUROLOGICAL CHANGES NOT MENTIONED NO . NEW NUMBNESS OR PAIN PATTERNS NOT MENTIONED AND PERTINENT TO TODAY'S VISIT NO . CARDIOLOGY: NEW CHEST PRESSURE NO . PATIENT DENIES NO . RESPIRATORY: UNEXPLAINABLE COUGH NO . NEW SHORTNESS OF BREATH NO . VITAL SIGNS WT 256 LBS, HT 70", BMI 36.73 INDEX, BP 159/90 MM HG, HR 79 /MIN, RR 16 /MIN, TEMP 97.4 F, OXYGEN SAT % 97, SAFE IN ENV? (Y/N) Y, REVIEWED BY: THERON. EXAMINATION GENERAL EXAMINATION: GENERALNO ACUTE DISTRESS, WELL NOURISHED AND HYDRATED. PSYCHAPPROPRIATE MOOD AND AFFECT . LUNGS:CLEAR TO AUSCULTATION BILATERALLY, NO WHEEZES, RHONCHI, RALES. HEART:NO MURMURS, REGULAR RATE AND RHYTHM. ASSESSMENTS SACROILIITIS - M46.1 (PRIMARY), RISK: (NULL) TREATMENT SACROILIITIS NOTES: 55-YEAR-OLD MALE IN FOR CHRONIC PAIN FOLLOW-UP. DISCUSSED PROCEDURES WITH PATIENT TODAY AND HE DECLINES THEM AT THIS TIME STATING HE WOULD PREFER TO WAIT UNTIL WARMER WEATHER HE GETS MORE ACTIVE IN THE SPRING AND SUMMER MONTHS. GIVEN PRESENTING SYMPTOMS RECOMMENDED FOLLOW-UP IN 2 MONTHS. PATIENT HAS EXPRESSED UNDERSTANDING OF AND WAS IN AGREEMENT WITH TREATMENT PLAN. GIVEN TIME TO ASK QUESTIONS AND EXPRESS CONCERNS. PROCEDURE CODES FA211 ESTABILISHED PATIENT [facility] FACILITY CHARGE DISPOSITION & COMMUNICATION FOLLOW UP 2 MONTHS (REASON: SACRROILITIS) ELECTRONICALLY SIGNED BY BOGDAN PRADHAN ON 12/10/2020 AT 08:33 AM EST DISCLAIMER : THIS IS A VISIT SUMMARY EXTRACTED FROM THE [employer] CHART. IT IS NOT A COPY OF THE [employer] PROGRESS NOTE. LYNDSAY
== END ==
LOC: M PAIN 11:30
PROVIDERS: ATTEND Family Medicine
DX: M46.1 Sacroiliitis, not elsewhere classified (principal); I10 Essential (primary) hypertension; M54.2 Cervicalgia; M79.7 Fibromyalgia; F43.10 Post-traumatic stress disorder, unspecified; F32.9 Major depressive disorder, single episode, unspecified; Z79.899 Other long term (current) drug therapy; Z88.8 Allergy status to other drugs, medicaments and biological substances

== ENCOUNTER → 2021-01-30 | Outpatient (CLI) | payer OTHER ==
[2021-01-31 18:11] LABS: TESTOSTERONE FREE (DIRECT) 7.3 pg/mL (7.2-24.0)
== END ==
LOC: M LAB 12:05
PROVIDERS: ATTEND Urology
DX: N40.0 Benign prostatic hyperplasia without lower urinary tract symptoms (principal); N52.9 Male erectile dysfunction, unspecified

== ENCOUNTER → 2021-02-12 | Outpatient (CLI) | payer OTHER ==
--- NOTE | 2021-02-14 06:00 | ECWPNPC ---
PATIENT NAME: CORY JEFFERY : 1965 GENDER: MALE VISIT DATE: 02/12/2021 DISCHARGE DATE: 02/12/21 1129 VISIT LOCKED DATE TIME: PHYSICIAN: RACHNA HUITRON RESOURCE: RACHNA HUITRON REASON FOR APPOINTMENT 1. SACRROILITIS HISTORY OF PRESENT ILLNESS DEPRESSION SCREENIN-YEAR-OLD MALE IN FOR CHRONIC PAIN FOLLOW-UP. HE RATES HIS PAIN CURRENTLY AT A 6 OUT OF 10 AND DESCRIBES IT BURNING AND CONTINUOUS. PATIENT HAS HAD ILIOINGUINAL NERVE BLOCKS IN THE PAST WITH GOOD RESULTS EVIDENCED BY DECREASED PAIN AND INCREASED FUNCTIONALITY. GIVEN PATIENT'S INCREASED PAIN AND WE WILL DISCUSS REPEAT PROCEDURES TODAY. PHQ-9 LITTLE INTEREST OR PLEASURE IN DOING THINGSSEVERAL DAYS FEELING DOWN, DEPRESSED, OR HOPELESSNEARLY EVERY DAY TROUBLE FALLING OR STAYING ASLEEP, OR SLEEPING TOO MUCHSEVERAL DAYS FEELING TIRED OR HAVING LITTLE ENERGYNEARLY EVERY DAY POOR APPETITE OR OVEREATING NEARLY EVERY DAY FEELING BAD ABOUT YOURSELF-OR THAT YOU ARE A FAILURE OR HAVE LET YOURSELF OR YOUR FAMILY DOWN NOT AT ALL TROUBLE CONCENTRATING ON THINGS, SUCH READING THE NEWSPAPER OR WATCHING TELEVISION NEARLY EVERY DAY MOVING OR SPEAKING SO SLOWLY THAT OTHER PEOPLE COULD HAVE NOTICED. OR THE OPPOSITE- BEING SO FIDGETY OR RESTLESS THAT YOU HAVE BEEN MOVING AROUND A LOT MORE THAN USUALNOT AT ALL THOUGHTS THAT YOU WOULD BE BETTER OFF , OR OF HURTING YOURSELF IN SOME WAY?NOT AT ALL TOTAL SCORE:14 INTERPRETATIONMODERATE DEPRESSION PHQ-2 (2015 EDITION) LITTLE INTEREST OR PLEASURE IN DOING THINGS?SEVERAL DAYS FEELING DOWN, DEPRESSED, OR HOPELESS?NEARLY EVERY DAY TOTAL SCORE4 GENERAL: -. FALL RISK SCREENING: SCREENING FEW FALLS REPORTED IN THE LAST YEAR WITHOUT INJURY.. PAIN SCREENING: PATIENT HAS A COMPLAINT OF ACUTE OR CHRONIC PAIN :YES LOCATION OF PAIN:OTHER: RIGHT SIDED GROIN INTENSITY OF PAIN (SCALE OF 1 TO 10):6 WHAT DOES YOUR PAIN FEEL LIKE:BURNING, CONTINOUS DURATION:CONTINOUS, AWAKENS FROM SLEEP PAIN IS INCREASED BY:ACTIVITIES, PROLONGED STANDING, OTHERS PAIN IS DECREASED BY:USE OF PAIN MEDICATIONS, OTHERS PROLONGED SITTING NURSING NOTE: -. PAIN CENTER INTAKE QUESTIONS: DO YOU HAVE A HISTORY OF MRSA? :NO DO YOU TAKE A BLOOD THINNERS? :NO DO YOU HAVE ANY BLEEDING DISORDERS? :NO ANY NEW NUMBNESS OR WEAKNESS IN YOUR LEGS OR ARMS? :NO ANY PACEMAKER,DEFIBRILLATOR, OR DORSAL COLUMN STIMULATOR? :NO DO YOU HAVE ANY RASHES OR OPEN SORES? :NO ARE YOU ALLERGIC TO IV DYE? :NO ARE YOU DIABETIC? :NO ANY NEW PROBLEMS WITH YOUR MEDICATIONS? :NO HAVE YOU RECEIVED A VACCINE IN THE PAST 30 DAYS? :NO DO YOU PLAN TO RECEIVE A VACCINE IN THE NEXT 21 DAYS? :NO DO YOU NEED ANY PRESCRIPTION? :NO DO YOU TAKE ANY IMMUNOSUPPRESSIVE MEDICATIONS? :NO ZYDRA EYE DROPS DO YOU HAVE ANY KIDNEY OR LIVER DISEASE? :NO IS THERE A CHANCE YOU COULD BE ? :NO ARE YOU BREAST FEEDING? :NO CURRENT MEDICATIONS TAKING MAY USE MEDICAL MARIJUANA _AS NEEDED IN THE EVENING FOR PAIN TAKING METOPROLOL SUCCINATE 100 MG TABLET EXTENDED RELEASE 1 CAPSULE ORALLY ONCE A DAY TAKING XIIDRA 5 % SOLUTION 1 DROP INTO AFFECTED EYE OPHTHALMIC TWICE A DAY TAKING GABAPENTIN 100 MG CAPSULE ORALLY 3 TIMES A DAY TAKING ATORVASTATIN CALCIUM 10 MG TABLET 1 TABLET ORALLY ONCE A DAY TAKING WELLBUTRIN XL 150 MG TABLET EXTENDED RELEASE 24 HOUR 1 TABLET IN THE MORNING ORALLY ONCE A DAY TAKING OMEPRAZOLE 40 MG CAPSULE DELAYED RELEASE 1 CAPSULE 30 MINUTES BEFORE MORNING MEAL ORALLY ONCE A DAY TAKING LEXAPRO 10 MG TABLET 1 TABLET ORALLY ONCE A DAY TAKING TRAMADOL HCL 50 MG TABLET 1 TABLET NEEDED ORALLY Q8H PRN MDD3 NOT-TAKING PROPECIA 1 MG TABLET 1 TABLET ORALLY ONCE A DAY NOT-TAKING ROGAINE 2 % SOLUTION 1 ML TO AFFECTED AREA EXTERNALLY TWICE A DAY NOT-TAKING MUCINEX 600 MG TABLET EXTENDED RELEASE 1 TABLET NEEDED ORALLY EVERY 12 HRS MEDICATION LIST REVIEWED AND RECONCILED WITH THE PATIENT PAST MEDICAL HISTORY HYPERTENSION HISTORY OF KIDNEY STONES HERNIATED DDD LUMBAR L5-S1 NECK PAIN ILIOINGUINAL HERNIA REPAIR TWICE ON EACH SIDE/ NEURALGIA CHRONIC PAIN WITH DR JOHN PELLUCID MARGINAL DEGENERATION FIBROMYALGIA PTSD DEPRESSION DISCITUS SPINAL STENOSIS CARPAL TUNNEL BILATERAL FRACTURED LEFT CLAVICAL FRACTURE LEFT HUMERAL HEAD KIDNEY STONES ALLERGIES POISON MERT: RASH AND ITCHING - ALLERGY CYMBALTA: MENTAL DISTRESS - SIDE EFFECTS SOCIAL HISTORY GENERAL: TOBACCO USE ARE YOU A:NONSMOKER LATEX QUESTIONNAIRE LATEX ALLERGY : HAVE YOU EVER DEVELOPED ANY TYPE OF REACTION AFTER HANDLING LATEX PRODUCTS SUCH RUBBER GLOVES, CONDOMS, DIAPHRAGMS, BALLOONS, SOCKS, OR UNDERWEAR?NO LATEX ALLERGY : HAVE YOU EVER DEVELOPED ANY TYPE OF REACTION DURING OR AFTER DENTAL APPOINTMENT, VAGINAL/RECTAL EXAMINATION, SURGICAL PROCEDURE, OR ANY OTHER EXPOSURE?NO LATEX RISK : HAVE YOU EVER HAD ANY DIFFICULTY BREATHING OR HIVES AFTER EATING OR HANDLING ANY FRUITS, OR VEGETABLES; SUCH KIWI, BANANAS, STONE FRUITS, OR CHESTNUTSNO LATEX RISK : DO YOU HAVE A PREVIOUS PERSONAL HISTORY OF MORE THAN NINE SURGERIES, SPINA BIFIDA, OR REPEATED CATHERIZATIONS? NO LATEX RISK : ARE YOU FREQUENTLY EXPOSED TO LATEX PRODUCTS IN YOUR OCCUPATION?NO DATE ASKED : 02/12/2021 ALCOHOL USE: FEW BEERS A MONTH. ALCOHOL SCREENING DID YOU HAVE A DRINK CONTAINING ALCOHOL IN THE PAST YEAR?YES HOW OFTEN DID YOU HAVE SIX OR MORE DRINKS ON ONE OCCASION IN THE PAST YEAR?NEVER (0 POINTS) HOW MANY DRINKS DID YOU HAVE ON A TYPICAL DAY WHEN YOU WERE DRINKING IN THE PAST YEAR?1 OR 2 (0 POINTS) HOW OFTEN DID YOU HAVE A DRINK CONTAINING ALCOHOL IN THE PAST YEAR?TWO TO FOUR TIMES A MONTH (2 POINTS) POINTS2 INTERPRETATIONNEGATIVE RECREATIONAL DRUG USE DRUG USE?YES MARIJUANA MEDICAL CARD CAFFEINE CAFFEINE USE?YES COFFEE HOW OFTEN AND HOW MUCH? 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 EXERCISE: TREADMILL AND PADDLEBOARD. MARITAL STATUS: SINGLE. OTHERS AT HOME: FATHER AND GIRLFRIEND. - PFS REFERRAL NEEDED?NO CLERGY REFERRAL NEEDED?NO PUBLIC HEALTH REFERRAL NEEDED?NO HAS THE PATIENT BEEN EDUCATED REGARDING HIS/HER PLAN OF CARE?YES HAS THE PATIENT BEEN EDUCATED REGARDING PAIN, THE RISK FOR PAIN, THE IMPORTANCE OF EFFECTIVE PAIN MANAGEMENT, AND THE PAIN ASSESSMENT PROCESS?YES ADVANCE DIRECTIVE ADVANCE DIRECTIVE DISCUSSED WITH PATIENT:YES 07/16/20 PT DOES NOT HAVE ANY ADVANCED DIRECTIVES AND HE DECLINES INFORMATION ON HCP AT THIS TIME. REVIEW OF SYSTEMS CONSTITUTIONAL: ANY RECENT FEVER NO . CHILLS NO . WEIGHT CHANGE OF UNKNOWN REASONS NO . GASTROENTEROLOGY: NEW UNEXPLAINABLE CHANGES IN BOWEL CONTROL NO . CONSTIPATION NO . GENITOURINARY: ANY NEW CHANGE IN BLADDER CONTROL? NO . NEUROLOGY: NEW ONSET DIZZINESS OR NEUROLOGICAL CHANGES NOT MENTIONED NO . NEW NUMBNESS OR PAIN PATTERNS NOT MENTIONED AND PERTINENT TO TODAY'S VISIT NO . CARDIOLOGY: NEW CHEST PRESSURE NO . PATIENT DENIES NO . RESPIRATORY: UNEXPLAINABLE COUGH NO . NEW SHORTNESS OF BREATH NO . VITAL SIGNS WT 258.8 LBS, HT 70", BMI 37.13 INDEX, BP 141/85 MM HG, HR 75 /MIN, RR 18 /MIN, TEMP 97.4 F, OXYGEN SAT % 96%, SAFE IN ENV? (Y/N) YES, NA INITIALS SC 11:00, REVIEWED BY: AKHIL GRANT MA. EXAMINATION GENERAL EXAMINATION: GENERALNO ACUTE DISTRESS, WELL NOURISHED AND HYDRATED. PSYCHAPPROPRIATE MOOD AND AFFECT . LUNGS:CLEAR TO AUSCULTATION BILATERALLY, NO WHEEZES, RHONCHI, RALES. HEART:NO MURMURS, REGULAR RATE AND RHYTHM. 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 GIVEN PRESENTING SYMPTOMS RECOMMEND RIGHT ILIOINGUINAL NERVE BLOCK WITH POSTPROCEDURAL FOLLOW-UP. PATIENT HAS EXPRESSED UNDERSTANDING OF AND WAS IN AGREEMENT WITH TREATMENT PLAN. GIVEN TIME TO ASK QUESTIONS AND EXPRESS CONCERNS. PROCEDURE CODES FA211 ESTABILISHED PATIENT [facility] CHARGE DISPOSITION & COMMUNICATION FOLLOW UP POSTPROCEDURE (REASON: RIGHT ILIOINGUINAL NERVE BLOCK) ELECTRONICALLY SIGNED BY BOGDAN PRADHAN ON 02/13/2021 AT 12:58 PM EDT DISCLAIMER : THIS IS A VISIT SUMMARY EXTRACTED FROM THE [employer] CHART. IT IS NOT A COPY OF THE [employer] PROGRESS NOTE. LYNDSAY
== END ==
LOC: M PAIN 11:00
PROVIDERS: ATTEND Family Medicine
DX: G57.91 Unspecified mononeuropathy of right lower limb (principal); I10 Essential (primary) hypertension; M51.26 Other intervertebral disc displacement, lumbar region; M54.2 Cervicalgia; M79.7 Fibromyalgia; F43.10 Post-traumatic stress disorder, unspecified; F32.9 Major depressive disorder, single episode, unspecified; Z79.891 Long term (current) use of opiate analgesic; Z79.899 Other long term (current) drug therapy; Z88.8 Allergy status to other drugs, medicaments and biological substances

== ENCOUNTER → 2021-02-25 | Outpatient (CLI) | payer OTHER | LOC: M LABSMTC 11:27 | PROVIDERS: ATTEND Anesthesiology | DX: Z20.822 Contact with and (suspected) exposure to COVID-19 (principal) ==

== ENCOUNTER → 2021-03-02 | Outpatient (CLI) | payer OTHER ==
[~2021-03-02] MED LIST changes: +BUPIVACAINE HCL 0.25% 30ML VIAL As Ordered ONE; +LIDOCAINE 1% SDV 30ML VIAL As Ordered ONE; +TRIAMCINOLONE ACETONIDE SUSP 40 MG/ML VIAL (J3301) As Ordered ONE; +diazePAM 5MG TABLET As Ordered ONE; +oxyCODONE 5MG TAB As Ordered ONE
--- NOTE | 2021-03-06 01:54 | ECWPNPC ---
PATIENT NAME: CORY JEFFERY : 1965 GENDER: MALE VISIT DATE: 03/02/2021 DISCHARGE DATE: 03/02/211816 VISIT LOCKED DATE TIME: PHYSICIAN: LISY JOHN MD RESOURCE: LISY JOHN MD REASON FOR APPOINTMENT 1. RIGHT ILIOINGUINAL NERVE BLOCK HISTORY OF PRESENT ILLNESS GENERAL: -. FALL RISK SCREENING: SCREENING FEW FALLS REPORTED IN THE LAST YEAR WITHOUT INJURY, DROP FOOT IN RIGHT FOOT, RESULTING IN SOME TUMBLES.. PAIN SCREENING: PATIENT HAS A COMPLAINT OF ACUTE OR CHRONIC PAIN :YES LOCATION OF PAIN:OTHER: RIGHT SIDED GROIN INTENSITY OF PAIN (SCALE OF 1 TO 10):6 WHAT DOES YOUR PAIN FEEL LIKE:BURNING, CONTINOUS "ZAPPING SENSATION" DURATION:CONTINOUS, AWAKENS FROM SLEEP PAIN IS INCREASED BY:ACTIVITIES, PROLONGED STANDING, OTHERS PROLONGED SITTING PAIN IS DECREASED BY:USE OF PAIN MEDICATIONS PLAN/GOALS/TREATMENT/INTERVENTION/FOLLOW UP:SEE PLAN NURSING NOTE: -. PAIN CENTER INTAKE QUESTIONS: DO YOU HAVE A HISTORY OF MRSA? :NO DO YOU TAKE A BLOOD THINNERS? :NO DO YOU HAVE ANY BLEEDING DISORDERS? :NO ANY NEW NUMBNESS OR WEAKNESS IN YOUR LEGS OR ARMS? :NO ANY PACEMAKER,DEFIBRILLATOR, OR DORSAL COLUMN STIMULATOR? :NO DO YOU HAVE ANY RASHES OR OPEN SORES? :NO ARE YOU ALLERGIC TO IV DYE? :NO ARE YOU DIABETIC? :NO ANY NEW PROBLEMS WITH YOUR MEDICATIONS? :NO HAVE YOU RECEIVED A VACCINE IN THE PAST 30 DAYS? :NO DO YOU PLAN TO RECEIVE A VACCINE IN THE NEXT 21 DAYS? :NO DO YOU TAKE ANY IMMUNOSUPPRESSIVE MEDICATIONS? :NO XIIDRA EYE DROPS LD: 02/23/21 ANY HISTORY OF SEIZURES? :NO ANY HISTORY OF CARDIAC ISSUES OR EVENTS? :NO DO YOU HAVE ANY KIDNEY OR LIVER DISEASE? :NO DO YOU HAVE SLEEP APNEA? :YES DO YOU WEAR A CPAP?NO ANY RECENT HEAD INJURY? :NO DO YOU HAVE ANY NEW INFECTIONS? :NO IS THERE A CHANCE YOU COULD BE ? :N/A ARE YOU BREAST FEEDING? :N/A WHEN DID YOU LAST EAT? : ----03/02 500 WHEN DID YOU LAST DRINK? : -----03/02 500 WHAT DID YOU LAST DRINK? : ----WATER/MILK NAME OF PERSON DRIVING YOU HOME? : CANDY DO YOU HAVE ANY OTHER QUESTIONS OR CONCERNS? : HAM GERMAIN (FRIEND) CURRENT MEDICATIONS TAKING MAY USE MEDICAL MARIJUANA _AS NEEDED IN THE EVENING FOR PAIN TAKING METOPROLOL SUCCINATE 100 MG TABLET EXTENDED RELEASE 1 CAPSULE ORALLY ONCE A DAY, NOTES: 03/02 0500 TAKING XIIDRA 5 % SOLUTION 1 DROP INTO AFFECTED EYE OPHTHALMIC TWICE A DAY, NOTES: 02/23/21 TAKING GABAPENTIN 100 MG CAPSULE ORALLY 3 TIMES A DAY TAKING ATORVASTATIN CALCIUM 10 MG TABLET 1 TABLET ORALLY ONCE A DAY TAKING WELLBUTRIN XL 150 MG TABLET EXTENDED RELEASE 24 HOUR 1 TABLET IN THE MORNING ORALLY ONCE A DAY TAKING OMEPRAZOLE 40 MG CAPSULE DELAYED RELEASE 1 CAPSULE 30 MINUTES BEFORE MORNING MEAL ORALLY ONCE A DAY TAKING TADALAFIL 20 MG TABLET 1 TABLET ORALLY ONCE A DAY PRN NOT-TAKING LEXAPRO 10 MG TABLET 1 TABLET ORALLY ONCE A DAY NOT-TAKING TRAMADOL HCL 50 MG TABLET 1 TABLET NEEDED ORALLY Q8H PRN MDD3 NOT-TAKING PROPECIA 1 MG TABLET 1 TABLET ORALLY ONCE A DAY NOT-TAKING ROGAINE 2 % SOLUTION 1 ML TO AFFECTED AREA EXTERNALLY TWICE A DAY NOT-TAKING MUCINEX 600 MG TABLET EXTENDED RELEASE 1 TABLET NEEDED ORALLY EVERY 12 HRS MEDICATION LIST REVIEWED AND RECONCILED WITH THE PATIENT PAST MEDICAL HISTORY HYPERTENSION HISTORY OF KIDNEY STONES HERNIATED DDD LUMBAR L5-S1 NECK PAIN ILIOINGUINAL HERNIA REPAIR TWICE ON EACH SIDE/ NEURALGIA CHRONIC PAIN WITH DR JOHN PELLUCID MARGINAL DEGENERATION FIBROMYALGIA PTSD DEPRESSION DISCITUS SPINAL STENOSIS CARPAL TUNNEL BILATERAL FRACTURED LEFT CLAVICAL FRACTURE LEFT HUMERAL HEAD KIDNEY STONES ALLERGIES POISON MERT: RASH AND ITCHING - ALLERGY CYMBALTA: MENTAL DISTRESS - SIDE EFFECTS SOCIAL HISTORY GENERAL: TOBACCO USE ARE YOU A:NONSMOKER LATEX QUESTIONNAIRE LATEX ALLERGY : HAVE YOU EVER DEVELOPED ANY TYPE OF REACTION AFTER HANDLING LATEX PRODUCTS SUCH RUBBER GLOVES, CONDOMS, DIAPHRAGMS, BALLOONS, SOCKS, OR UNDERWEAR?NO LATEX ALLERGY : HAVE YOU EVER DEVELOPED ANY TYPE OF REACTION DURING OR AFTER DENTAL APPOINTMENT, VAGINAL/RECTAL EXAMINATION, SURGICAL PROCEDURE, OR ANY OTHER EXPOSURE?NO LATEX RISK : HAVE YOU EVER HAD ANY DIFFICULTY BREATHING OR HIVES AFTER EATING OR HANDLING ANY FRUITS, OR VEGETABLES; SUCH KIWI, BANANAS, STONE FRUITS, OR CHESTNUTSNO LATEX RISK : DO YOU HAVE A PREVIOUS PERSONAL HISTORY OF MORE THAN NINE SURGERIES, SPINA BIFIDA, OR REPEATED CATHERIZATIONS? NO LATEX RISK : ARE YOU FREQUENTLY EXPOSED TO LATEX PRODUCTS IN YOUR OCCUPATION?NO DATE ASKED : 02/27/2021 ALCOHOL USE: FEW BEERS A MONTH. ALCOHOL SCREENING DID YOU HAVE A DRINK CONTAINING ALCOHOL IN THE PAST YEAR?YES HOW OFTEN DID YOU HAVE SIX OR MORE DRINKS ON ONE OCCASION IN THE PAST YEAR?NEVER (0 POINTS) HOW MANY DRINKS DID YOU HAVE ON A TYPICAL DAY WHEN YOU WERE DRINKING IN THE PAST YEAR?1 OR 2 (0 POINTS) HOW OFTEN DID YOU HAVE A DRINK CONTAINING ALCOHOL IN THE PAST YEAR?TWO TO FOUR TIMES A MONTH (2 POINTS) POINTS2 INTERPRETATIONNEGATIVE RECREATIONAL DRUG USE DRUG USE?YES MARIJUANA MEDICAL CARD CAFFEINE CAFFEINE USE?YES COFFEE HOW OFTEN AND HOW MUCH? 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 EXERCISE: TREADMILL AND PADDLEBOARD. MARITAL STATUS: SINGLE. OTHERS AT HOME: FATHER AND GIRLFRIEND. - PFS REFERRAL NEEDED?NO CLERGY REFERRAL NEEDED?NO PUBLIC HEALTH REFERRAL NEEDED?NO HAS THE PATIENT BEEN EDUCATED REGARDING HIS/HER PLAN OF CARE?YES HAS THE PATIENT BEEN EDUCATED REGARDING PAIN, THE RISK FOR PAIN, THE IMPORTANCE OF EFFECTIVE PAIN MANAGEMENT, AND THE PAIN ASSESSMENT PROCESS?YES ADVANCE DIRECTIVE ADVANCE DIRECTIVE DISCUSSED WITH PATIENT:YES 07/16/20 PT DOES NOT HAVE ANY ADVANCED DIRECTIVES AND HE DECLINES INFORMATION ON HCP AT THIS TIME. VITAL SIGNS WT 259 LBS, HT 70", BMI 37.16 INDEX, BP 135/78 MM HG, HR 75 /MIN, RR 18 /MIN, TEMP 98.0 F, OXYGEN SAT % 97%, NA INITIALS AW 1256. EXAMINATION GENERAL: A HISTORY AND PHYSICAL EXAM ON THE PATIENT WAS DONE ON 02/12/2021 (DATE OF ORIGINAL ASSESSMENT) IN PREPARATION OF SURGERY/PROCEDURE. I HAVE NOW REASSESSED THIS PATIENT'S HEALTH STATUS AND PERFORMED AN UPDATED EXAM TODAY. ALL CHANGES IN THE PATIENT'S HISTORY, PHYSICAL EXAM, PRE-EXISTING CONDITONS, AND INDICATIONS/CONTRAINDICATIONS TO THE PLANNED PROCEDURE AND ANESTHESIA ARE DOCUMENTED AND EVALUATED BELOW. I ATTEST TO THE ADEQUACY AND APPROPRIATENESS OF MY ASSESSMENT, AND CONFIRM THE NECESSITY FOR THE PLANNED PROCEDURE. THE PATIENT IS ALERT, ORIENTED TIMES THREE AND COOPERATIVE. LUNGS ARE CLEAR TO AUSCULTATION. HEART SHOWS REGULAR RHYTHM, NO MURMURS AND NO GALLOPS. 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 NIKHIL HUNT 03/02/2021 1:47:13 PM > ADMINISTERED MEDICATION: OXYCODONE HCL TAB 10MG ORALLYSARAH ZIMMERMAN 03/02/2021 1:40:21 PM > VERIFIED. NIKHIL HUNT 03/02/2021 1:47:49 PM > ADMINISTERED OTHERS NOTES: 02/27/21 1530 PAT COMPLETED. Monica FERNANDES WAREHOUSE STOCKER. PROCEDURES PAIN NURSING RECORD PROCEDURE IN ROOM 1450, PHYSICIAN IN ROOM 1538, START 1602, FINISH 1624, PHYSICIAN OUT OF ROOM 1625, OUT OF ROOM 1630, ECG NORMAL SINUS, PATIENT SHIELDED N/A, SAFETY STRAP N/A, PREP CHLOROPREP, DRESSING TEGADERM DR. JOHN LOC: 1. ALERT, ORIENTED RESP: 1. REGULAR, NO DYSPNEA COLOR: 1. PINK SKIN: 1. WARM, DRY POSITION: 2. SUPINE VITALS: NIKHIL HUNT 03/02/2021 2:55:39 PM > 158/81 HR 66 16 96% R/A , NIKHIL HUNT 03/02/2021 3:10:59 PM > 156/95 HR 68 16 94% R/A , GILBERTNIKHIL 03/02/2021 3:25:42 PM > 159/86 HR 65 16 95% R/A, NIKHIL HUNT 03/02/2021 3:40:42 PM >182/95 HR 67 16 97% R/A , NIKHIL HUNT 03/02/2021 3:55:45 PM > 185/95 HR 66 16 97% R/A , GILBERTNIKHIL 03/02/2021 4:10:19 PM > 169/84 HR 68 16 94% R/A GILBERT MARY 03/02/2021 4:25:04 PM > 166/81 HR 96 16 96% R/A GILBERT MARY 03/02/2021 4:40:47 PM > 139/85 HR 75 16 98% R/A D/C V/S NOTES GROUNDING ELECTRODE APPLIED TO RIGHT LATERAL THIGH BY DR JOHN. COMPLETION OF PROCEDURE APPOINTMENT: POST PAIN 4, DRESSING SITE DRY AND INTACT, IV N/A, GAIT STEADY, TEACHING COMPLETED, PATIENT ACKNOWLEDGES UNDERSTANDING YES, PROCEDURE APPOINTMENT COMPLETED AT 1645 PRE PROCEDURE DIAGNOSIS RIGHT ILIOINGUINAL NEURALGIA POST PROCEDURE DIAGNOSIS RIGHT ILIOINGUINAL NEURALGIA PROCEDURE RIGHT ILIOINGUINAL NERVE BLOCK SURGEON DR. LISY JOHN ANESTHESIA LOCAL PRE PROCEDURE NOTE THE PATIENT IS SUFFERING OF INGUINAL PAIN AND NEURALGIA. I REVIEWED THE CHART AND DISCUSSED THE CASE WITH THE PATIENT. AFTER DISCUSSING RISK, BENEFITS AND ALTERNATIVES ASSOCIATED WITH THE PROCEDURE, THE PATIENT UNDERSTANDS AND AGREES TO MOVE FORWARD. THE PATIENT IS COVID-19 NEGATIVE DESCRIPTION OF PROCEDURE AFTER CONSENT WAS SIGNED THE PATIENT WAS TAKEN TO THE PROCEDURE ROOM AND PLACED IN THE SUPINE POSITION. THE RIGHT INGUINAL AREA WAS CLEANED WITH CHLORAPREP SOLUTION AND DRAPED ASEPTICALLY. A TIMEOUT WAS PERFORMED WHERE THE CONSENTED SITE WAS VERIFIED WITH EVERYONE IN THE ROOM. THE PROCEDURE WAS DONE UNDER STERILE STANDARD TECHNIQUES. THE RIGHT SUPERIOR ANTERIOR ILIAC SPINE WAS PALPATED. I CONFIRMED AGAIN SITE OF TARGET. LIDOCAINE WAS USED TO NUMB THE SKIN AND SUBCUTANEOUS TISSUE BELOW IT. THE ENTRY POINT WAS SELECTED 1 INCH MEDIAL AND CAUDAL. THEN, USING A NERVE STIMULATOR, APPROPRIATE STIMULATION OF THE NERVE WAS INDUCED PER PATIENT'S FEEDBACK, FIRST AT 0.5 VOLTS AND THEN AT 3.0 VOLTS. THERE WAS NO EVIDENCE OF BLOOD, PARESTHESIA OR VISCERAL PUNCTURE. THEN A SOLUTION OF 15 ML OF BUPIVACAINE 0.125% AND KENALOG 40 MG WAS INJECTED SLOWLY APPROXIMATELY 0.5 INCHES DEEP WITH THE ASSISTANCE OF THE NERVE STIMULATOR DESCRIBED ABOVE. THE MEDICATIONS WERE VERIFIED WITH THE NURSE. THE PATIENT TOLERATED THE PROCEDURE WITHOUT COMPLICATIONS AND WAS SENT TO THE RECOVERY ROOM. ESTIMATED BLOOD LOSS WAS LESS THAN 5 ML POST PROCEDURE NOTE I WILL SEE THE PATIENT IN A FOLLOW UP IN THE NEXT FEW WEEKS. WE ARE LOOKING FOR LONG LASTING PAIN RELIEF WITH THIS INTERVENTION. INSTRUCTIONS WERE GIVEN QUESTIONS WERE ANSWERED AND THE PATIENT REPORTS UNDERSTANDING AND AGREES. ILARRY, DOCUMENTED THE ABOVE INFORMATION ACTING A SCRIBE FOR DR. JOHN. I HAVE REVIEWED THE ABOVE DOCUMENT, WRITTEN BY LARRY ASHER, CONTROL EQUIPMENT ELECTRICIAN, AND I VERIFY THAT IT IS ACCURATE PROCEDURE CODES 58079 N BLOCK INJ ILIO-ING/HYPOGI, MODIFIERS: RT DISPOSITION & COMMUNICATION FOLLOW UP FOLLOW UP WITH RN NEW GRAD (REASON: POST RIGHT ILIOINGUINAL NERVE BLOCK) ELECTRONICALLY SIGNED BY LISY JOHN MD, MD ON 03/05/2021 AT 04:28 PM EDT DISCLAIMER : THIS IS A VISIT SUMMARY EXTRACTED FROM THE [employer] CHART. IT IS NOT A COPY OF THE [employer] PROGRESS NOTE. MTDD
== END ==
LOC: M PAIN 13:00
PROVIDERS: ATTEND Anesthesiology
DX: G57.91 Unspecified mononeuropathy of right lower limb (principal); I10 Essential (primary) hypertension; M54.2 Cervicalgia; M51.27 Other intervertebral disc displacement, lumbosacral region; M79.7 Fibromyalgia; F43.10 Post-traumatic stress disorder, unspecified; F32.9 Major depressive disorder, single episode, unspecified; Z79.899 Other long term (current) drug therapy; Z88.8 Allergy status to other drugs, medicaments and biological substances; Z91.048 Other nonmedicinal substance allergy status
CPT/HCPCS: 64425; J3301

== ENCOUNTER → 2021-03-16 | Outpatient (CLI) | payer OTHER ==
[~2021-03-16] MED LIST changes: -BUPIVACAINE HCL 0.25% 30ML VIAL As Ordered ONE; -LIDOCAINE 1% SDV 30ML VIAL As Ordered ONE; -TRIAMCINOLONE ACETONIDE SUSP 40 MG/ML VIAL (J3301) As Ordered ONE; -diazePAM 5MG TABLET As Ordered ONE; -oxyCODONE 5MG TAB As Ordered ONE
--- NOTE | 2021-03-18 01:56 | ECWPNPC ---
PATIENT NAME: CORY JEFFERY : 1965 GENDER: MALE VISIT DATE: 03/16/2021 DISCHARGE DATE: 03/16/21 1139 VISIT LOCKED DATE TIME: PHYSICIAN: RACHNA HUITRON RESOURCE: RACHNA HUITRON REASON FOR APPOINTMENT 1. POST RIGHT ILIOINGUINAL NERVE BLOCK HISTORY OF PRESENT ILLNESS GENERAL: HPI 55-YEAR-OLD MALE IN FOR POST RIGHT ILIOINGUINAL NERVE BLOCK FOLLOW-UP. PATIENT FEELS THE PROCEDURE WAS SUCCESSFUL OVERALL AND FEELS IT CONTINUES TO HELP HIM TODAY. HE RATES HIS PAIN CURRENTLY AT A 6 OUT OF 10. . -. FALL RISK SCREENING: SCREENING SEVERAL FALLS, DUE TO "DROP FOOT.". PAIN SCREENING: PATIENT HAS A COMPLAINT OF ACUTE OR CHRONIC PAIN :YES LOCATION OF PAIN:OTHER: RIGHT SIDED GROIN, LEFT SIDED GROIN. INTENSITY OF PAIN (SCALE OF 1 TO 10):6 RIGHT HAS GOTTEN BETTER SINCE INJECTION. INCREASE OF LEFT SIDED PAIN X TWO YEARS. (RIGHT SIDE 12/17). WHAT DOES YOUR PAIN FEEL LIKE:CONTINOUS, OTHER "DULL, ACHY" DURATION:CONTINOUS, AWAKENS FROM SLEEP PAIN IS INCREASED BY:ACTIVITIES, PROLONGED STANDING, OTHERS PROLONGED SITTING PAIN IS DECREASED BY:USE OF PAIN MEDICATIONS PLAN/GOALS/TREATMENT/INTERVENTION/FOLLOW UP:SEE PLAN NURSING NOTE: -. PAIN CENTER INTAKE QUESTIONS: DO YOU HAVE A HISTORY OF MRSA? :NO DO YOU TAKE A BLOOD THINNERS? :NO DO YOU HAVE ANY BLEEDING DISORDERS? :NO ANY NEW NUMBNESS OR WEAKNESS IN YOUR LEGS OR ARMS? :NO ANY PACEMAKER,DEFIBRILLATOR, OR DORSAL COLUMN STIMULATOR? :NO DO YOU HAVE ANY RASHES OR OPEN SORES? :NO ARE YOU ALLERGIC TO IV DYE? :NO ARE YOU DIABETIC? :NO ANY NEW PROBLEMS WITH YOUR MEDICATIONS? :NO HAVE YOU RECEIVED A VACCINE IN THE PAST 30 DAYS? :NO DO YOU PLAN TO RECEIVE A VACCINE IN THE NEXT 21 DAYS? :NO DO YOU NEED ANY PRESCRIPTION? : DISCUSS TRAMADOL, NOW LONGER USING MEDICAL MARIJUANA, GOING TO SCHOOL. DO YOU TAKE ANY IMMUNOSUPPRESSIVE MEDICATIONS? :NO XIIDRA EYE DROPS LD: 02/23/21 ANY HISTORY OF SEIZURES? :NO ANY HISTORY OF CARDIAC ISSUES OR EVENTS? :NO DO YOU HAVE ANY KIDNEY OR LIVER DISEASE? :NO DO YOU HAVE SLEEP APNEA? :YES DO YOU WEAR A CPAP?NO ANY RECENT HEAD INJURY? :NO DO YOU HAVE ANY NEW INFECTIONS? :NO IS THERE A CHANCE YOU COULD BE ? :N/A ARE YOU BREAST FEEDING? :N/A DO YOU HAVE ANY OTHER QUESTIONS OR CONCERNS? : NO CURRENT MEDICATIONS TAKING METOPROLOL SUCCINATE 100 MG TABLET EXTENDED RELEASE 1 CAPSULE ORALLY ONCE A DAY TAKING XIIDRA 5 % SOLUTION 1 DROP INTO AFFECTED EYE OPHTHALMIC TWICE A DAY TAKING GABAPENTIN 100 MG CAPSULE ORALLY 3 TIMES A DAY TAKING ATORVASTATIN CALCIUM 10 MG TABLET 1 TABLET ORALLY ONCE A DAY TAKING WELLBUTRIN XL 150 MG TABLET EXTENDED RELEASE 24 HOUR 1 TABLET IN THE MORNING ORALLY ONCE A DAY TAKING OMEPRAZOLE 40 MG CAPSULE DELAYED RELEASE 1 CAPSULE 30 MINUTES BEFORE MORNING MEAL ORALLY ONCE A DAY TAKING TADALAFIL 20 MG TABLET 1 TABLET ORALLY ONCE A DAY PRN NOT-TAKING MAY USE MEDICAL MARIJUANA _AS NEEDED IN THE EVENING FOR PAIN, NOTES: LAST USED RESTARTING SCHOOL NOT-TAKING LEXAPRO 10 MG TABLET 1 TABLET ORALLY ONCE A DAY NOT-TAKING TRAMADOL HCL 50 MG TABLET 1 TABLET NEEDED ORALLY Q8H PRN MDD3 NOT-TAKING PROPECIA 1 MG TABLET 1 TABLET ORALLY ONCE A DAY NOT-TAKING ROGAINE 2 % SOLUTION 1 ML TO AFFECTED AREA EXTERNALLY TWICE A DAY NOT-TAKING MUCINEX 600 MG TABLET EXTENDED RELEASE 1 TABLET NEEDED ORALLY EVERY 12 HRS MEDICATION LIST REVIEWED AND RECONCILED WITH THE PATIENT PAST MEDICAL HISTORY HYPERTENSION HISTORY OF KIDNEY STONES HERNIATED DDD LUMBAR L5-S1 NECK PAIN ILIOINGUINAL HERNIA REPAIR TWICE ON EACH SIDE/ NEURALGIA CHRONIC PAIN WITH DR JOHN PELLUCID MARGINAL DEGENERATION FIBROMYALGIA PTSD DEPRESSION DISCITUS SPINAL STENOSIS CARPAL TUNNEL BILATERAL FRACTURED LEFT CLAVICAL FRACTURE LEFT HUMERAL HEAD KIDNEY STONES ALLERGIES POISON MERT: RASH AND ITCHING - ALLERGY CYMBALTA: MENTAL DISTRESS - SIDE EFFECTS SOCIAL HISTORY GENERAL: TOBACCO USE ARE YOU A:NONSMOKER LATEX QUESTIONNAIRE LATEX ALLERGY : HAVE YOU EVER DEVELOPED ANY TYPE OF REACTION AFTER HANDLING LATEX PRODUCTS SUCH RUBBER GLOVES, CONDOMS, DIAPHRAGMS, BALLOONS, SOCKS, OR UNDERWEAR?NO LATEX ALLERGY : HAVE YOU EVER DEVELOPED ANY TYPE OF REACTION DURING OR AFTER DENTAL APPOINTMENT, VAGINAL/RECTAL EXAMINATION, SURGICAL PROCEDURE, OR ANY OTHER EXPOSURE?NO LATEX RISK : HAVE YOU EVER HAD ANY DIFFICULTY BREATHING OR HIVES AFTER EATING OR HANDLING ANY FRUITS, OR VEGETABLES; SUCH KIWI, BANANAS, STONE FRUITS, OR CHESTNUTSNO LATEX RISK : DO YOU HAVE A PREVIOUS PERSONAL HISTORY OF MORE THAN NINE SURGERIES, SPINA BIFIDA, OR REPEATED CATHERIZATIONS? NO LATEX RISK : ARE YOU FREQUENTLY EXPOSED TO LATEX PRODUCTS IN YOUR OCCUPATION?NO DATE ASKED : 03/16/2021 ALCOHOL USE: FEW BEERS A MONTH. ALCOHOL SCREENING DID YOU HAVE A DRINK CONTAINING ALCOHOL IN THE PAST YEAR?YES HOW OFTEN DID YOU HAVE SIX OR MORE DRINKS ON ONE OCCASION IN THE PAST YEAR?NEVER (0 POINTS) HOW MANY DRINKS DID YOU HAVE ON A TYPICAL DAY WHEN YOU WERE DRINKING IN THE PAST YEAR?1 OR 2 (0 POINTS) HOW OFTEN DID YOU HAVE A DRINK CONTAINING ALCOHOL IN THE PAST YEAR?TWO TO FOUR TIMES A MONTH (2 POINTS) POINTS2 INTERPRETATIONNEGATIVE RECREATIONAL DRUG USE DRUG USE?YES MARIJUANA MEDICAL CARD HOW OFTEN AND HOW MUCH? HASN'T USED SINCE 11/2020. CAFFEINE CAFFEINE USE?YES COFFEE HOW OFTEN AND HOW MUCH? 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 EXERCISE: TREADMILL AND PADDLEBOARD. MARITAL STATUS: SINGLE. OTHERS AT HOME: FATHER AND GIRLFRIEND. - PFS REFERRAL NEEDED?NO CLERGY REFERRAL NEEDED?NO PUBLIC HEALTH REFERRAL NEEDED?NO HAS THE PATIENT BEEN EDUCATED REGARDING HIS/HER PLAN OF CARE?YES HAS THE PATIENT BEEN EDUCATED REGARDING PAIN, THE RISK FOR PAIN, THE IMPORTANCE OF EFFECTIVE PAIN MANAGEMENT, AND THE PAIN ASSESSMENT PROCESS?YES ADVANCE DIRECTIVE ADVANCE DIRECTIVE DISCUSSED WITH PATIENT:YES 07/16/20 PT DOES NOT HAVE ANY ADVANCED DIRECTIVES AND HE DECLINES INFORMATION ON HCP AT THIS TIME. REVIEW OF SYSTEMS CONSTITUTIONAL: ANY RECENT FEVER NO . CHILLS NO . WEIGHT CHANGE OF UNKNOWN REASONS NO . GASTROENTEROLOGY: NEW UNEXPLAINABLE CHANGES IN BOWEL CONTROL NO . CONSTIPATION NO . GENITOURINARY: ANY NEW CHANGE IN BLADDER CONTROL? NO . NEUROLOGY: NEW ONSET DIZZINESS OR NEUROLOGICAL CHANGES NOT MENTIONED NO . NEW NUMBNESS OR PAIN PATTERNS NOT MENTIONED AND PERTINENT TO TODAY'S VISIT NO . CARDIOLOGY: NEW CHEST PRESSURE NO . PATIENT DENIES NO . RESPIRATORY: UNEXPLAINABLE COUGH NO . NEW SHORTNESS OF BREATH NO . VITAL SIGNS WT 261.4 LBS, HT 70", BMI 37.50 INDEX, BP 158/85 MM HG, HR 88 /MIN, RR 18 /MIN, TEMP 98.1 F, OXYGEN SAT % 97%, SAFE IN ENV? (Y/N) YES, NA INITIALS NV 10:33, REVIEWED BY: Monica FERNANDES CLINICAL TRIAL HEAD. EXAMINATION GENERAL EXAMINATION: GENERALNO ACUTE DISTRESS, WELL NOURISHED AND HYDRATED. PSYCHAPPROPRIATE MOOD AND AFFECT . LUNGS:CLEAR TO AUSCULTATION BILATERALLY, NO WHEEZES, RHONCHI, RALES. HEART:NO MURMURS, REGULAR RATE AND RHYTHM. 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 GIVEN PRESENTING SYMPTOMS RECOMMEND RESTARTING TRAMADOL 50 MG DAILY NEEDED FOR PAIN. FURTHER RECOMMENDED INCREASING GABAPENTIN TO 300 MG 3 TIMES A DAY WITH FOLLOW-UP IN 2 MONTHS. PATIENT EXPRESSED UNDERSTANDING OF AND WAS IN AGREEMENT WITH TREATMENT PLAN. GIVEN TIME TO ASK QUESTIONS AND EXPRESS CONCERNS. USE OF OPIATES FOR THERAPEUTIC PURPOSES LAB: URINE TEST GROUP SUZI LARA 03/16/2021 11:32:15 AM > NOTHING PROCEDURE CODES FA211 ESTABILISHED PATIENT [facility] FACILITY CHARGE DISPOSITION & COMMUNICATION FOLLOW UP 2 MONTHS (REASON: NEURALGIA ) ELECTRONICALLY SIGNED BY BOGDAN PRADHAN ON 03/17/2021 AT 08:37 AM EDT DISCLAIMER : THIS IS A VISIT SUMMARY EXTRACTED FROM THE [employer] CHART. IT IS NOT A COPY OF THE [employer] PROGRESS NOTE. LYNDSAY
== END ==
LOC: M PAIN 10:30
PROVIDERS: ATTEND Family Medicine
DX: G89.29 Other chronic pain (principal); G57.91 Unspecified mononeuropathy of right lower limb; Z79.891 Long term (current) use of opiate analgesic; I10 Essential (primary) hypertension; M54.2 Cervicalgia; M79.7 Fibromyalgia; F43.10 Post-traumatic stress disorder, unspecified; Z87.442 Personal history of urinary calculi; Z79.899 Other long term (current) drug therapy; Z88.8 Allergy status to other drugs, medicaments and biological substances; Z91.048 Other nonmedicinal substance allergy status

== ENCOUNTER → 2021-04-10 | Outpatient (CLI) | payer OTHER ==
[2021-04-14 23:07] LABS: PSA TOTAL 0.6 ng/mL (0.0-4.0)
== END ==
LOC: M LAB 15:06
PROVIDERS: ATTEND Urology
DX: R36.1 Hematospermia (principal)

== ENCOUNTER → 2021-06-12 | Outpatient (CLI) | payer OTHER ==
[2021-06-12 14:24] LABS: FOLLICLE STIMULATING HORMONE 2.3 mIU/mL (1.4-18.1); LUTEINIZING HORMONE 2.3 mIU/mL (1.5-9.3); PROLACTIN 6.4 NG/ML (2.1-17.7)
[2021-06-16 17:07] LABS: SEX HORMONE BINDING GLOBULIN 25.7 nmol/L (19.3-76.4)
== END ==
LOC: M LAB 11:35
PROVIDERS: ATTEND Urology
DX: R79.89 Other specified abnormal findings of blood chemistry (principal)

== ENCOUNTER → 2021-06-12 | Outpatient (REF) | payer OTHER | LOC: M SMT 11:24 | PROVIDERS: ATTEND Urology | DX: R36.1 Hematospermia (principal) ==

== ENCOUNTER 2021-09-02 13:57 | Outpatient (CLI) | payer OTHER ==
[~2021-09-02] VITALS: Ht 177.8 cm; Wt 111.4 kg
[~2021-09-02 13:57] MED LIST changes: +ALBUTEROL 90 MCG/ACT 8GM HFA INHALER INH PRN; +ALBUTEROL SULFATE 2.5 MG/0.5 ML INH NEB SOLN INH PRN; +EPINEPHrine INJ 1 MG/ML 1ML AMP IM PRN; +NS 1,000 ML IV SCH; +diphenhydrAMINE 50MG/ML VIAL (J1200) IV PRN; +methylPREDNISolone 125MG 2ML VIAL IV PRN
[2021-09-02] MEDS ORDERED: ACETAMINOPHEN TAB 650MG DOSE (2X325MG) PO ONE (14:00)
[2021-09-02] MEDS ORDERED: CASIRIVIMAB (REGN10933) 600 MG, IMDEVIMAB (REGN10987) 600 MG in NS 250 ML IV ONE (14:00)
[2021-09-02 14:21] VITALS: BP 143/67
[2021-09-02 14:51] VITALS: BP 118/64
[2021-09-02 15:38] VITALS: BP 115/66
[2021-09-02 16:08] VITALS: BP 121/66
== END 2021-09-02 17:08 | disposition home or self-care (01) ==
LOC: M OPCLI4PR 13:57
PROVIDERS: ATTEND Physician Assistant
DX: U07.1 COVID-19 (principal); Z88.8 Allergy status to other drugs, medicaments and biological substances

== ENCOUNTER → 2021-09-23 | Outpatient (CLI) | payer OTHER ==
[~2021-09-23] MED LIST changes: -ALBUTEROL 90 MCG/ACT 8GM HFA INHALER INH PRN; -ALBUTEROL SULFATE 2.5 MG/0.5 ML INH NEB SOLN INH PRN; -EPINEPHrine INJ 1 MG/ML 1ML AMP IM PRN; -NS 1,000 ML IV SCH; -diphenhydrAMINE 50MG/ML VIAL (J1200) IV PRN; -methylPREDNISolone 125MG 2ML VIAL IV PRN
[2021-09-24 19:08] LABS: TESTOSTERONE FREE (DIRECT) 15.6 pg/mL (7.2-24.0)
== END ==
LOC: M LAB 12:21
PROVIDERS: ATTEND Urology
DX: R36.1 Hematospermia (principal)

== ENCOUNTER → 2021-12-18 | Outpatient (CLI) | payer OTHER | LOC: M PAIN 13:45 | PROVIDERS: ATTEND Anesthesiology | DX: M50.10 Cervical disc disorder with radiculopathy, unspecified cervical region (principal); I10 Essential (primary) hypertension; G89.29 Other chronic pain; M79.7 Fibromyalgia; F43.10 Post-traumatic stress disorder, unspecified; F32.A Depression, unspecified; M48.00 Spinal stenosis, site unspecified; N52.9 Male erectile dysfunction, unspecified; Z79.899 Other long term (current) drug therapy; Z88.8 Allergy status to other drugs, medicaments and biological substances; Z91.048 Other nonmedicinal substance allergy status ==

== ENCOUNTER → 2021-12-23 | Outpatient (CLI) | payer OTHER ==
[2021-12-25 20:06] LABS: TESTOSTERONE FREE (DIRECT) 30.5 pg/mL (7.2-24.0)
== END ==
LOC: M LAB 14:59
PROVIDERS: ATTEND Urology
DX: R36.1 Hematospermia (principal)

== ENCOUNTER → 2022-01-27 | Outpatient (CLI) | payer OTHER | LOC: M PAIN 11:30 | PROVIDERS: ATTEND Nurse Practitioner Family | DX: M50.10 Cervical disc disorder with radiculopathy, unspecified cervical region (principal); I10 Essential (primary) hypertension; M51.27 Other intervertebral disc displacement, lumbosacral region; G89.29 Other chronic pain; M79.7 Fibromyalgia; F43.10 Post-traumatic stress disorder, unspecified; F32.A Depression, unspecified; N52.9 Male erectile dysfunction, unspecified; E29.1 Testicular hypofunction; Z79.899 Other long term (current) drug therapy; Z88.8 Allergy status to other drugs, medicaments and biological substances ==

== ENCOUNTER → 2022-03-17 | Outpatient (CLI) | payer OTHER | LOC: M EKG 13:38 | PROVIDERS: ATTEND Orthopaedic Surgery | DX: M67.52 Plica syndrome, left knee (principal) ==

== ENCOUNTER → 2022-05-21 | Outpatient (CLI) | payer OTHER | LOC: M PLARAD 10:32 | PROVIDERS: ATTEND Physician Assistant | DX: M54.12 Radiculopathy, cervical region (principal); M50.322 Other cervical disc degeneration at C5-C6 level; M50.323 Other cervical disc degeneration at C6-C7 level; M99.61 Osseous and subluxation stenosis of intervertebral foramina of cervical region ==

== ENCOUNTER → 2022-05-28 | Outpatient (CLI) | payer OTHER | LOC: M PAIN 14:45 | PROVIDERS: ATTEND Nurse Practitioner Family | DX: M50.10 Cervical disc disorder with radiculopathy, unspecified cervical region (principal); I10 Essential (primary) hypertension; M51.27 Other intervertebral disc displacement, lumbosacral region; G89.29 Other chronic pain; M79.7 Fibromyalgia; F43.10 Post-traumatic stress disorder, unspecified; F32.A Depression, unspecified; M48.00 Spinal stenosis, site unspecified; G56.03 Carpal tunnel syndrome, bilateral upper limbs; Z87.81 Personal history of (healed) traumatic fracture; Z87.442 Personal history of urinary calculi; E29.1 Testicular hypofunction; N52.9 Male erectile dysfunction, unspecified; H93.19 Tinnitus, unspecified ear; H93.25 Central auditory processing disorder; Z89.022 Acquired absence of left finger(s); Z79.899 Other long term (current) drug therapy; Z88.8 Allergy status to other drugs, medicaments and biological substances; J30.89 Other allergic rhinitis ==

== ENCOUNTER → 2022-06-24 | Outpatient (CLI) | payer OTHER | LOC: M PAIN 11:45 | PROVIDERS: ATTEND Nurse Practitioner Family | DX: M79.18 Myalgia, other site (principal); M54.2 Cervicalgia; I10 Essential (primary) hypertension; Z87.442 Personal history of urinary calculi; M51.27 Other intervertebral disc displacement, lumbosacral region; G89.29 Other chronic pain; M79.7 Fibromyalgia; F43.10 Post-traumatic stress disorder, unspecified; M48.00 Spinal stenosis, site unspecified; Z87.81 Personal history of (healed) traumatic fracture; E29.1 Testicular hypofunction; N52.9 Male erectile dysfunction, unspecified; H93.19 Tinnitus, unspecified ear; H93.25 Central auditory processing disorder; Z79.899 Other long term (current) drug therapy; Z88.8 Allergy status to other drugs, medicaments and biological substances ==

== ENCOUNTER → 2022-08-12 | Outpatient (CLI) | payer OTHER ==
[2022-08-12 15:18] LABS: HEMOGLOBIN 15.8 g/dl (13.5-17.5); MEAN CORPUSCULAR HGB CONC 34.3 g/dl (32.0-36.5); MEAN CORPUSCULAR VOLUME 93.3 fl (80.0-96.0); PLATELET COUNT, AUTOMATED 248 10^3/uL (150-450); RED BLOOD COUNT 4.93 10^6/uL (4.30-6.10); WHITE BLOOD COUNT 9.3 10^3/uL (4.0-10.0)
[2022-08-12 16:10] LABS: ALBUMIN 3.8 GM/DL (3.2-5.2); ALT/SGPT 43 U/L (12-78); BILIRUBIN,TOTAL 0.7 MG/DL (0.2-1.0); BLOOD UREA NITROGEN 15 MG/DL (7-18); CALCIUM LEVEL 9.4 MG/DL (8.5-10.1); CARBON DIOXIDE LEVEL 30 MEQ/L (21-32); CHLORIDE LEVEL 106 MEQ/L (98-107); CREATININE FOR GFR 0.95 MG/DL (0.70-1.30); GLOMERULAR FILTRATION RATE > 60.0 (>56); GLUCOSE, FASTING 93 MG/DL (70-100); POTASSIUM SERUM 4.1 MEQ/L (3.5-5.1); SODIUM LEVEL 140 MEQ/L (136-145); TOTAL PROTEIN 6.6 GM/DL (6.4-8.2)
[2022-08-14 20:09] LABS: PSA TOTAL 0.6 ng/mL (0.0-4.0); TESTOSTERONE FREE (DIRECT) 22.3 pg/mL (7.2-24.0)
== END ==
LOC: M LAB 14:23
PROVIDERS: ATTEND Urology
DX: R79.89 Other specified abnormal findings of blood chemistry (principal)

== ENCOUNTER → 2022-09-05 | Outpatient (CLI) | payer OTHER | LOC: M LABSMTC 09:23 | PROVIDERS: ATTEND Anesthesiology | DX: Z01.812 Encounter for preprocedural laboratory examination (principal); Z11.52 Encounter for screening for COVID-19 ==

== ENCOUNTER → 2022-09-09 | Outpatient (CLI) | payer OTHER ==
[~2022-09-09] MED LIST changes: +BUPIVACAINE HCL 0.25% 10ML VIAL As Ordered ONE; +BUPIVACAINE HCL 0.25% 30ML VIAL As Ordered ONE; +TRIAMCINOLONE ACETONIDE SUSP 40MG/ML 1ML VIAL As Ordered ONE; +diazePAM 5MG TABLET As Ordered ONE; +oxyCODONE 5MG TAB As Ordered ONE
== END ==
LOC: M PAIN 08:15
PROVIDERS: ATTEND Anesthesiology
DX: M79.18 Myalgia, other site (principal); I10 Essential (primary) hypertension; M54.2 Cervicalgia; G89.29 Other chronic pain; M51.26 Other intervertebral disc displacement, lumbar region; M79.7 Fibromyalgia; F43.10 Post-traumatic stress disorder, unspecified; F32.A Depression, unspecified; E29.1 Testicular hypofunction; N52.9 Male erectile dysfunction, unspecified; H93.19 Tinnitus, unspecified ear; Z87.442 Personal history of urinary calculi; M48.00 Spinal stenosis, site unspecified; Z87.81 Personal history of (healed) traumatic fracture; Z79.899 Other long term (current) drug therapy; Z88.8 Allergy status to other drugs, medicaments and biological substances; Z91.048 Other nonmedicinal substance allergy status
CPT/HCPCS: 20552; J3301

== ENCOUNTER → 2022-10-14 | Outpatient (CLI) | payer OTHER ==
[~2022-10-14] MED LIST changes: -BUPIVACAINE HCL 0.25% 10ML VIAL As Ordered ONE; -BUPIVACAINE HCL 0.25% 30ML VIAL As Ordered ONE; -TRIAMCINOLONE ACETONIDE SUSP 40MG/ML 1ML VIAL As Ordered ONE; -diazePAM 5MG TABLET As Ordered ONE; -oxyCODONE 5MG TAB As Ordered ONE
== END ==
LOC: M PAIN 09:00
PROVIDERS: ATTEND Nurse Practitioner Family
DX: M79.18 Myalgia, other site (principal); I10 Essential (primary) hypertension; M51.27 Other intervertebral disc displacement, lumbosacral region; M79.7 Fibromyalgia; M54.2 Cervicalgia; G89.29 Other chronic pain; F43.10 Post-traumatic stress disorder, unspecified; M48.00 Spinal stenosis, site unspecified; E29.1 Testicular hypofunction; N52.9 Male erectile dysfunction, unspecified; H93.19 Tinnitus, unspecified ear; H93.25 Central auditory processing disorder; Z79.899 Other long term (current) drug therapy; Z88.8 Allergy status to other drugs, medicaments and biological substances; Z87.81 Personal history of (healed) traumatic fracture; Z87.442 Personal history of urinary calculi

== ENCOUNTER → 2022-12-23 | Outpatient (CLI) | payer OTHER ==
[2022-12-23 14:36] LABS: BASO % 0.5 % (0.0-1.0); EOS # 0.1 10^3/uL (0.0-0.5); EOS % 1.7 % (0.0-3.0); HEMATOCRIT 46.4 % (42.0-52.0); HEMOGLOBIN 15.8 g/dl (13.5-17.5); LYMPH # 1.6 10^3/uL (1.5-5.0); LYMPH % 19.6 % (24.0-44.0); MEAN CORPUSCULAR HEMOGLOBIN 32.4 pg (27.0-33.0); MEAN CORPUSCULAR HGB CONC 34.1 g/dl (32.0-36.5); MEAN CORPUSCULAR VOLUME 95.3 fl (80.0-96.0); MONO # 0.8 10^3/uL (0.0-0.8); MONO % 9.3 % (2.0-8.0); NEUTROPHILS # 5.7 10^3/uL (1.5-8.5); NEUTROPHILS % 68.4 % (36.0-66.0); PLATELET COUNT, AUTOMATED 259 10^3/uL (150-450); RED BLOOD COUNT 4.87 10^6/uL (4.30-6.10); WHITE BLOOD COUNT 8.4 10^3/uL (4.0-10.0)
[2022-12-23 14:45] LABS: ERYTHROCYTE SEDIMENTATION RATE 6 mm/hr (0-20)
[2022-12-23 15:06] LABS: RHEUMATOID FACTOR QUANT 4.6 IU/ML (<14)
[2022-12-23 15:38] LABS: FOLATE 20.4 NG/ML (>5.4)
[2022-12-23 15:51] LABS: ALKALINE PHOSPHATASE 62 U/L (46-116); ALT/SGPT 38 U/L (7.0-40); AST/SGOT 26 U/L (<34); BLOOD UREA NITROGEN 11 MG/DL (9-23); CALCIUM LEVEL 9.4 MG/DL (8.5-10.1); CARBON DIOXIDE LEVEL 30 MMOL/L (20-31); CHLORIDE LEVEL 105 MMOL/L (98-107); CREATININE FOR GFR 1.01 MG/DL (0.70-1.30); GLOMERULAR FILTRATION RATE > 60.0 (>56); GLUCOSE, FASTING 88 MG/DL (60-100); POTASSIUM SERUM 4.1 MMOL/L (3.5-5.1); SODIUM LEVEL 140 MMOL/L (136-145); THYROID STIMULATING HORMONE 2.016 uIU/ML (0.55-4.78); TOTAL PROTEIN 6.4 G/DL (5.7-8.2); VITAMIN B12 LEVEL 511 PG/ML (211-911)
== END ==
LOC: M LAB 13:57
PROVIDERS: ATTEND Psychiatry & Neurology Neurology
DX: R41.841 Cognitive communication deficit (principal)

== ENCOUNTER → 2023-01-18 | Outpatient (CLI) | payer OTHER ==
[~2023-01-18] MED LIST changes: +ASPI-226; +ATOR1TAB19; +BUPR300T92; +DOXY100T; +GABA-282; +PIME1CRE; +TADA20TA; +TEST50GE2; +XIID5DRO
== END ==
LOC: M PAIN 13:45
PROVIDERS: ATTEND Nurse Practitioner Family
DX: M54.2 Cervicalgia (principal); I10 Essential (primary) hypertension; M51.26 Other intervertebral disc displacement, lumbar region; G89.29 Other chronic pain; M79.7 Fibromyalgia; F43.10 Post-traumatic stress disorder, unspecified; F32.A Depression, unspecified; M48.00 Spinal stenosis, site unspecified; E29.1 Testicular hypofunction; N52.9 Male erectile dysfunction, unspecified; Z87.81 Personal history of (healed) traumatic fracture; G56.03 Carpal tunnel syndrome, bilateral upper limbs; Z79.82 Long term (current) use of aspirin; Z79.899 Other long term (current) drug therapy; Z88.8 Allergy status to other drugs, medicaments and biological substances; Z91.048 Other nonmedicinal substance allergy status

== ENCOUNTER → 2023-05-23 | Outpatient (CLI) | payer OTHER | LOC: M LAB 15:15 | PROVIDERS: ATTEND Urology | DX: E29.1 Testicular hypofunction (principal) ==

== ENCOUNTER → 2023-09-09 | Outpatient (CLI) | payer OTHER ==
[~2023-09-09] MED LIST changes: +TRIAMCINOLONE ACETONIDE SUSP 40MG/ML 1ML VIAL As Ordered ONE; +diazePAM 5MG TABLET As Ordered ONE; +oxyCODONE 5MG TAB As Ordered ONE
== END ==
LOC: M PAIN 14:15
PROVIDERS: ATTEND Anesthesiology
DX: M79.18 Myalgia, other site (principal); G89.29 Other chronic pain; Z79.82 Long term (current) use of aspirin; Z79.899 Other long term (current) drug therapy
CPT/HCPCS: 20552; J0665; J3301

== ENCOUNTER → 2023-09-13 | Outpatient (CLI) | payer OTHER ==
[~2023-09-13] MED LIST changes: -TRIAMCINOLONE ACETONIDE SUSP 40MG/ML 1ML VIAL As Ordered ONE; -diazePAM 5MG TABLET As Ordered ONE; -oxyCODONE 5MG TAB As Ordered ONE
[2023-09-13 12:44] LABS: HEMATOCRIT 46.9 % (42.0-52.0); HEMOGLOBIN 16.2 g/dl (13.5-17.5); MEAN CORPUSCULAR HEMOGLOBIN 33.1 pg (27.0-33.0); MEAN CORPUSCULAR HGB CONC 34.5 g/dl (32.0-36.5); MEAN CORPUSCULAR VOLUME 95.7 fl (80.0-96.0); PLATELET COUNT, AUTOMATED 278 10^3/uL (150-450); WHITE BLOOD COUNT 9.7 10^3/uL (4.0-10.0)
[2023-09-13 13:15] LABS: ALBUMIN 4.4 G/DL (3.2-5.2); ALKALINE PHOSPHATASE 59 U/L (46-116); ALT/SGPT 40 U/L (7.0-40); AST/SGOT 20 U/L (<34); BLOOD UREA NITROGEN 18 MG/DL (9-23); CALCIUM LEVEL 9.5 MG/DL (8.5-10.1); CARBON DIOXIDE LEVEL 30 MMOL/L (20-31); CHLORIDE LEVEL 104 MMOL/L (98-107); CREATININE FOR GFR 1.07 MG/DL (0.70-1.30); GLOMERULAR FILTRATION RATE > 60.0 (>56); GLUCOSE, FASTING 88 MG/DL (60-100); POTASSIUM SERUM 4.5 MMOL/L (3.5-5.1); SODIUM LEVEL 143 MMOL/L (136-145)
[2023-09-14 19:07] LABS: PSA TOTAL 0.6 ng/mL (0.0-4.0); TESTOSTERONE FREE (DIRECT) 9.1 pg/mL (7.2-24.0)
== END ==
LOC: M LAB 10:57
PROVIDERS: ATTEND Urology
DX: E29.1 Testicular hypofunction (principal)

== ENCOUNTER → 2023-09-16 | Outpatient (REF) | payer OTHER | LOC: M LABSMT 10:57 | PROVIDERS: ATTEND Urology | DX: Z53.9 Procedure and treatment not carried out, unspecified reason (principal) ==

== ENCOUNTER → 2023-12-06 | Outpatient (REF) | payer OTHER | LOC: M SFHCDERM 16:39 | PROVIDERS: ATTEND Physician Assistant | DX: D48.9 Neoplasm of uncertain behavior, unspecified (principal) ==

== ENCOUNTER → 2024-01-24 | Outpatient (REF) | payer OTHER | LOC: M SFHCDERM 17:39 | PROVIDERS: ATTEND Physician Assistant | DX: C44.91 Basal cell carcinoma of skin, unspecified (principal); L57.8 Other skin changes due to chronic exposure to nonionizing radiation ==

== ENCOUNTER → 2024-04-26 | Outpatient (CLI) | payer OTHER ==
[~2024-04-26] MED LIST changes: +BUPR-597; -BUPR300T92; +BYST1TAB2 PO; -BYST5TAB2 PO; +ERYT5OIN25 OP
[2024-04-26 13:40] LABS: HEMOGLOBIN 15.7 g/dl (13.5-17.5); MEAN CORPUSCULAR HEMOGLOBIN 33.1 pg (27.0-33.0); MEAN CORPUSCULAR HGB CONC 35.7 g/dl (32.0-36.5); MEAN CORPUSCULAR VOLUME 92.6 fl (80.0-96.0); PLATELET COUNT, AUTOMATED 243 10^3/uL (150-450); RED BLOOD COUNT 4.75 10^6/uL (4.30-6.10); WHITE BLOOD COUNT 9.6 10^3/uL (4.0-10.0)
[2024-04-26 14:20] LABS: PSA SCREENING 0.65 NG/ML (< 4.00)
[2024-04-26 14:21] LABS: ALBUMIN 4.2 G/DL (3.2-5.2); ALKALINE PHOSPHATASE 58 U/L (46-116); ALT/SGPT 34 U/L (7.0-40); AST/SGOT 14 U/L (<34); BLOOD UREA NITROGEN 14 MG/DL (9-23); CALCIUM LEVEL 9.3 MG/DL (8.5-10.1); CARBON DIOXIDE LEVEL 30 MMOL/L (20-31); CHLORIDE LEVEL 106 MMOL/L (98-107); CREATININE FOR GFR 0.82 MG/DL (0.70-1.30); GLOMERULAR FILTRATION RATE > 60.0 (>56); GLUCOSE, FASTING 91 MG/DL (60-100); POTASSIUM SERUM 4.3 MMOL/L (3.5-5.1); SODIUM LEVEL 140 MMOL/L (136-145); TOTAL PROTEIN 6.5 G/DL (5.7-8.2)
== END ==
LOC: M LAB 12:59
PROVIDERS: ATTEND Urology
DX: E29.1 Testicular hypofunction (principal)

== ENCOUNTER 2024-04-27 15:17 | Emergency (ER) | payer OTHER ==
[~2024-04-27] VITALS: Ht 157.5 cm; Wt 115.1 kg
[~2024-04-27 15:17] MED LIST changes: -ERYT5OIN25 OP
[2024-04-27] MEDS: TETRACAINE 0.5% OPHTH SOLN 4ML OD ONE (18:30)
[2024-04-27] MEDS: FLUORESCEIN OPHTH 1MG STRIP OD ONE (18:30)
[2024-04-27] MEDS ORDERED: ERYT5OIN25 OP (18:54)
[2024-04-27 19:02] VITALS: BP 135/91; TEMP 97.9; O2SAT 97
[2024-04-27] MEDS: ERYTHROMYCIN OPHTH OINT OD ONE (19:06)
== END 2024-04-27 19:19 | disposition home or self-care (01) ==
LOC: M ED 15:17
DX: S05.01XA Injury of conjunctiva and corneal abrasion without foreign body, right eye, initial encounter (principal); Y92.9 Unspecified place or not applicable; Y93.9 Activity, unspecified; Y99.9 Unspecified external cause status; I10 Essential (primary) hypertension; E78.5 Hyperlipidemia, unspecified; F10.10 Alcohol abuse, uncomplicated; Z88.8 Allergy status to other drugs, medicaments and biological substances; Z79.1 Long term (current) use of non-steroidal anti-inflammatories (NSAID); Z79.2 Long term (current) use of antibiotics; Z79.899 Other long term (current) drug therapy

== ENCOUNTER → 2024-05-04 | Outpatient (REF) | payer OTHER ==
[~2024-05-04] MED LIST changes: +ERYT5OIN25 OP
== END ==
LOC: M LABSMT 14:21
PROVIDERS: ATTEND Urology
DX: E29.1 Testicular hypofunction (principal)

== ENCOUNTER → 2024-10-15 | Outpatient (CLI) | payer OTHER ==
[~2024-10-15] MED LIST changes: +GABA-1172; -GABA-282
[2024-10-15 11:37] LABS: HEMOGLOBIN 15.6 g/dl (13.5-17.5); MEAN CORPUSCULAR HGB CONC 34.7 g/dl (32.0-36.5); MEAN CORPUSCULAR VOLUME 92.4 fl (80.0-96.0); PLATELET COUNT, AUTOMATED 288 10^3/uL (150-450); RED BLOOD COUNT 4.87 10^6/uL (4.30-6.10); WHITE BLOOD COUNT 7.5 10^3/uL (4.0-10.0)
[2024-10-15 12:17] LABS: ALBUMIN 4.4 G/DL (3.2-5.2); ALKALINE PHOSPHATASE 75 U/L (40-129); ALT/SGPT 37 U/L (7.0-40); AST/SGOT 22 U/L (<34); BILIRUBIN,TOTAL 1.1 MG/DL (0.3-1.2); BLOOD UREA NITROGEN 15 MG/DL (9-23); CALCIUM LEVEL 9.9 MG/DL (8.5-10.1); CARBON DIOXIDE LEVEL 31 MMOL/L (20-31); CHLORIDE LEVEL 101 MMOL/L (98-107); CREATININE FOR GFR 0.93 MG/DL (0.70-1.30); GLOMERULAR FILTRATION RATE > 60.0 (>56); GLUCOSE, FASTING 92 MG/DL (60-100); POTASSIUM SERUM 4.5 MMOL/L (3.5-5.1); SODIUM LEVEL 140 MMOL/L (136-145); TOTAL PROTEIN 7.6 G/DL (5.7-8.2)
[2024-10-16 14:33] LABS: PSA FREE 0.3 ng/mL; PSA TOTAL 0.7 ng/mL (< OR = 4.0)
== END ==
LOC: M LAB 10:07
PROVIDERS: ATTEND Urology
DX: E29.1 Testicular hypofunction (principal)

== ENCOUNTER → 2024-10-15 | Outpatient (CLI) | payer OTHER ==
[2024-10-15 11:37] LABS: BASO % 0.4 % (0.0-1.0); EOS # 0.1 10^3/uL (0.0-0.5); EOS % 1.4 % (0.0-3.0); HEMATOCRIT 44.1 % (42.0-52.0); HEMOGLOBIN 15.3 g/dl (13.5-17.5); LYMPH # 1.5 10^3/uL (1.5-5.0); LYMPH % 19.4 % (24.0-44.0); MEAN CORPUSCULAR HEMOGLOBIN 32.1 pg (27.0-33.0); MEAN CORPUSCULAR HGB CONC 34.7 g/dl (32.0-36.5); MEAN CORPUSCULAR VOLUME 92.5 fl (80.0-96.0); MONO # 0.6 10^3/uL (0.0-0.8); MONO % 7.5 % (2.0-8.0); NEUTROPHILS # 5.5 10^3/uL (1.5-8.5); NEUTROPHILS % 70.7 % (36.0-66.0); PLATELET COUNT, AUTOMATED 283 10^3/uL (150-450); RED BLOOD COUNT 4.77 10^6/uL (4.30-6.10); WHITE BLOOD COUNT 7.7 10^3/uL (4.0-10.0)
[2024-10-15 12:15] LABS: HEMOGLOBIN A1c 5.3 % (4.0-6.0)
[2024-10-15 12:18] LABS: ALBUMIN 4.1 G/DL (3.2-5.2); ALKALINE PHOSPHATASE 70 U/L (40-129); ALT/SGPT 34 U/L (7.0-40); AST/SGOT 21 U/L (<34); BLOOD UREA NITROGEN 15 MG/DL (9-23); CALCIUM LEVEL 9.8 MG/DL (8.5-10.1); CARBON DIOXIDE LEVEL 33 MMOL/L (20-31); CHLORIDE LEVEL 102 MMOL/L (98-107); CHOLESTEROL LEVEL 171 MG/DL (<200); CHOLESTEROL RISK RATIO 3.76 (<5); CREATININE FOR GFR 0.94 MG/DL (0.70-1.30); FERRITIN 321.7 NG/ML (10.5-307.3); FOLATE > 24.00 NG/ML (>5.4); GLOMERULAR FILTRATION RATE > 60.0 (>56); GLUCOSE, FASTING 96 MG/DL (60-100); HDL CHOLESTEROL 45.4 MG/DL (>40); IRON (FE) 142 UG/DL (65-175); LDL CHOLESTEROL 105.8 MG/DL (<100); NON-HDL-C 125.6 MG/DL; PERCENT SATURATION 47.7 % (19.7-50.0); POTASSIUM SERUM 4.7 MMOL/L (3.5-5.1); SODIUM LEVEL 141 MMOL/L (136-145); THYROID STIMULATING HORMONE 2.395 uIU/ML (0.55-4.78); TOTAL 25(OH) VITAMIN D 39.9 NG/ML (20.0-100.0); TOTAL IRON BINDING CAPACITY 298 UG/DL (250-425); TOTAL PROTEIN 7.1 G/DL (5.7-8.2); TRIGLYCERIDES LEVEL 99 MG/DL (<150); VITAMIN B12 LEVEL 775 PG/ML (211-911)
== END ==
LOC: M LAB 10:09
PROVIDERS: ATTEND Surgery
DX: E66.01 Morbid (severe) obesity due to excess calories (principal)

== ENCOUNTER → 2024-12-17 | Outpatient (CLI) | payer OTHER | LOC: M EKG 10:29 | PROVIDERS: ATTEND Surgery | DX: E66.01 Morbid (severe) obesity due to excess calories (principal) ==

== ENCOUNTER → 2025-05-13 | Outpatient (REF) | payer OTHER ==
[~2025-05-13] MED LIST changes: -BUPR-597; +BUPR-766; +LIFI1DRO4; -XIID5DRO
== END ==
LOC: M SFHCDERM 17:38
PROVIDERS: ATTEND Physician Assistant
DX: D22.9 Melanocytic nevi, unspecified (principal)

== ENCOUNTER → 2025-08-05 | Outpatient (CLI) | payer OTHER ==
[2025-08-05 10:22] LABS: BASO # 0.0 10^3/uL (0.0-0.2); BASO % 0.4 % (0.0-1.0); EOS # 0.1 10^3/uL (0.0-0.5); EOS % 1.2 % (0.0-3.0); LYMPH # 1.6 10^3/uL (1.5-5.0); LYMPH % 19.7 % (24.0-44.0); MONO # 0.7 10^3/uL (0.0-0.8); MONO % 8.0 % (2.0-8.0); NEUTROPHILS # 5.7 10^3/uL (1.5-8.5); NEUTROPHILS % 70.3 % (36.0-66.0); PLATELET COUNT, AUTOMATED 284 10^3/uL (150-450)
[2025-08-05 10:57] LABS: CALCIUM LEVEL 9.3 MG/DL (8.5-10.1); CARBON DIOXIDE LEVEL 30 MMOL/L (20-31); CHLORIDE LEVEL 105 MMOL/L (98-107); CREATININE FOR GFR 0.89 MG/DL (0.70-1.30); GLOMERULAR FILTRATION RATE > 90.0 (>56); POTASSIUM SERUM 4.4 MMOL/L (3.5-5.1); SODIUM LEVEL 143 MMOL/L (136-145)
== END ==
LOC: M LAB 09:14
PROVIDERS: ATTEND Physician Assistant
DX: E66.9 Obesity, unspecified (principal)